=== PATIENT | male | born 1955 | race Caucasian/White ===

== ENCOUNTER 2016-06-15 17:57 | Inpatient (IN) | payer MEDICARE, OTHER ==
[~2016-06-15] VITALS: Ht 180.3 cm; Wt 101.1 kg
[2016-06-15] VITALS (9 sets, daily range): BP systolic 105–122; BP diastolic 67–90; PULSE 137–145; RESP 18–28; O2SAT 91–97
[~2016-06-15 17:57] MED LIST: ASPI81TA3 PO; METO-272 PO; PREN1TAB25 PO
[2016-06-15 18:31] LABS: BASOPHILS % (AUTO) 0.5 % (0-3); EOSINOPHILS % (AUTO) 4.1 % (0-5); MONOCYTES % (AUTO) 8.9 % (4-12); Mean Corpuscular Hemoglobin 31.8 pg (27.0-35.0); Mean Corpuscular Volume 93.9 fL (81-100); Platelet Count 213 bil/L (150-400)
--- NOTE | 2016-06-15 18:45 | ED.REPORT ---
HPI-General Illness Date of Service Jun 15, 2016 ED Provider: Kelly Perez MD The patient is a 61 year old male with history of alcohol abuse, schizoaffective disorder, bipolar, and PTSD, who presents to the emergency department with multiple concerns. the patient states he injected heroin yesterday in hopes it would kill him. He has attempted suicide in the past and has been hospitalized psychiatrically. He has been unable to stop drinking alcohol due to withdrawal symptoms. He also mentions that he has been short of breath and noticed palpitations over the last few months. He was diagnosed with atrial fibrillation several months ago. He was unable to get to the pharmacy and has not been taking the medication that was prescribed for this. He has experienced intermittent chest pain, the last episode was a few weeks ago. He denies history of heart failure. Nursing Notes Stated Complaint: SUICIDAL,HEART RACING,ALCOHOL Chief Complaint: Psychiatric Complaint Nursing Notes Reviewed: Yes Allergies: Coded Allergies: No Known Allergies (Verified , 06/15/16) Scheduled Aspirin Chew (Aspirin Chew) 81 Mg Chew 325 MG PO DAILY Metoprolol Succinate ER (Metoprolol Succinate ER) 50 Mg Tab.er.24h 100 MG PO BID Vit#96/Ferrous Fum/FA ( Tablet) 1 Each Tablet 1 TABLET PO DAILY General Time Seen by MD: 18:34 Chief Complaint Multip medical complaints Hx Obtained From: Patient Arrived By: Walk-in Sudden in Onset?: No Onset Occurred: More than a week ago... Symptom Duration: Since onset Severity: Current: No pain currently Severity: Maximum: No pain Recent Healthcare: No recent hospitalization Similar Sx Previous: Yes Past Medical History Past Medical History alcoholic meth abuse schizoaffective disorder bipolar PTSD Reports: Atrial fibrillation Past Surgical History Reports: Appendectomy, Tonsillectomy Smoking History Current Every Day Smoker Social History He reports injecting heroin yesterday (06/14/2016) Alcohol Use: >5 per day Drug Use: Meth Other Social History: Poor social support, Local resident Ambulatory Status Independent Review of Systems Full Review of Systems Respiratory: Reports: Shortness of breath Cardiovascular: Reports: Chest pain (intermittent), Palpitations Psychiatric: Reports: Change mental status, Stress, Suicidal ideation Complete sys rev & neg: except as marked. Physical Exam Vital Signs Vital Signs Date Time Temp Pulse Resp B/P Pulse Ox O2 Delivery O2 Flow Rate FiO2 06/15/16 21:03 137 105/77 06/15/16 20:48 137 113/67 06/15/16 19:13 144 21 106/82 91 Room Air 06/15/16 18:20 144 26 106/82 92 Room Air 06/15/16 18:05 36.3 145 28 113/83 94 Room Air Initial VS: Reviewed Head / Eyes: Atraumatic, Normocephalic, PERRL ENT: Mucous membranes moist, Conjunctiva normal, No scleral icterus Neck: Supple, Non-tender, Full range of motion Respiratory: Breath sounds normal, Clear to auscultation, No respiratory distress Abdomen / GI: Soft, Non-tender, No guarding, No rebound, No distention Lymphatic: No lymphadenopathy Extremities: Vascular intact, Neuro intact, No swelling, No tenderness Skin: Warm, Dry, No cyanosis Neurologic: Alert, Oriented, Nonfocal General/Constitutional: Awake, Alert, No acute distress Cardiovascular: No murmurs, No rubs, Peripheral circulation NL, Pulses = bilaterally, No gross BP differential Heart Rate / Rhythm: Positive: Irreg irregular rhythm, Tachycardia Psychiatric: Affect NL, Not homicidal, No hallucinations Abnormal Thinking / Perception: Positive: Suicidal, with plan Interpretation & Diagnostics Lab Results Interpretation Result Diagram: 06/15/16 1815 06/15/16 1815 Test 06/15/16 18:15 06/15/16 19:28 White Blood Count 7.8th/mm3 (3.8-10.1) Red Blood Count 4.43mil/mm3 (4.40-5.80) Hemoglobin 14.1g/dL (13.8-17.2) Hematocrit 41.6% (41.0-50.0) Mean Corpuscular Volume 93.9fL (81-100) Mean Corpuscular Hemoglobin 31.8pg (27.0-35.0) Mean Corpuscular Hemoglobin Concent 33.9% (32.0-37.0) Red Cell Distribution Width 13.4% (12.3-15.4) Platelet Count 213bil/L (150-400) Neutrophils (%) (Auto) 58.0% (40-74) Lymphocytes (%) (Auto) 28.4% (14-46) Monocytes (%) (Auto) 8.9% (4-12) Eosinophils (%) (Auto) 4.1% (0-5) Basophils (%) (Auto) 0.5% (0-3) Sodium Level 138mEq/L (134-144) Potassium Level 4.7mEq/L (3.5-5.2) Chloride Level 104mEq/L (97-108) Carbon Dioxide Level 19mmol/L (18-29) Blood Urea Nitrogen 28mg/dL (8-27) Creatinine 1.29mg/dL (0.76-1.27) Estimat Glomerular Filtration Rate 60mL/min (>59) Glucose Level 79mg/dL (60-99) Calcium Level 8.6mg/dL (8.5-10.1) Magnesium Level 1.8mg/dL (1.6-2.6) Total Bilirubin 0.4mg/dL (0.0-1.2) Aspartate Amino Transf (AST/SGOT) 28U/L (0-50) Alanine Aminotransferase (ALT/SGPT) 17U/L (0-44) Alkaline Phosphatase 77U/L (25-160) Troponin T < 0.010ug/L (0.0-0.011) Pro-B-Type Natriuretic Peptide 1710pg/mL (0-210) Total Protein 6.3g/dL (6.4-8.4) Albumin 3.6g/dL (3.4-5.0) Hold Encarnacion Top Tube Received (Received) Urine Color Yellow (YELLOW) Urine Appearance Clear (CLEAR,HAZY) Urine pH 5.5 (5.0-8.0) Urine Specific [place] 1.025 (1.003-1.035) Urine Protein 30mg/dL (NEG,TRACE) Urine Glucose (UA) Negativemg/dL (NEGATIVE) Urine Ketones Negativemg/dL (NEGATIVE) Urine Occult Blood Negative (NEGATIVE) Urine Nitrite Negative (NEGATIVE) Urine Bilirubin Negative (NEGATIVE) Urine Urobilinogen Normalmg/dL (NORMAL) Urine Leukocyte Esterase Negative (NEGATIVE) Urine RBC 0-2/hpf (0-2) Urine WBC 0-5/hpf (0-5) Urine Epithelial Cells Occasional/hpf (NONE-MOD) Urine Crystals None seen (NONE SEEN) Urine Bacteria Few/hpf (NONE-FEW) Urine Hyaline Casts Occasional/lpf (NONE) Urine Granular Casts None seen (NONE SEEN) Urine Waxy Casts None seen (NONE SEEN) Urine Red Blood Cell Casts None seen (NONE SEEN) Urine White Blood Cell Casts None seen (NONE SEEN) Urine Mucus Present (None Seen) Urine Trichomonas None seen (NONE SEEN) Urine Yeast None (NONE SEEN) Urinalysis Comment None Urine Culture Reflexed Not indicated ECG Interpretation ECG Interpretation: Atrial flutter with a rate of [address] ST depression in II and aVF Changed from prior with new atrial flutter Time: 18:15 Interpreted by: ED physician X-Ray Chest Interpretation Chest Xray Interpretation: IMPRESSION: Mild pulmonary vasculature cephalization suspicious for mild CHF. Dictated by: Afsaneh Badillo MD, PhD on 06/15/2016 at 19:27 Interpretation / Wet Read by: Interpret - Radiologist Re-Eval/Medical Decision Med Decision/Clinical Course 61-year-old male with past medical history of polysubstance abuse, psychiatric disorder, atrial fibrillation which is not currently treated here with suicidal ideation with attempt yesterday by injecting heroine, along with progressively worsening shortness of breath over the last several months. Differential diagnosis includes but is not limited to pneumonia versus pleural effusion versus new onset CHF versus suicidal ideation. Patient was found to be in A. fib with RVR with rate in the 140s. He was mildly hypotensive with a systolic blood pressure of 106 initially. I gave him a liter of fluids which increased his blood pressure, and then was able to give diltiazem which has been slowly decreasing his atrial fibrillation rate. He is not medically cleared at this time given his heart rate. He does have a mildly elevated proBNP. I do feel that this is more secondary to high output failure from A. fib with RVR, rather than congestive heart failure. He has been admitted by the hospitalist who will continue to monitor him, give him fluids, and once he is medically cleared , discussed with psychiatry. Patient has a sitter at bedside at this time. He does appear to be dry with an elevated creatinine from baseline. He is aware and amenable to plan. Source of Hx: Old records Time of Eval: 18:50 Re-Evaluation/Progress Note: Discussed plan for probable admission. Consultation : Referral / Consult Name: Melodie Osborne DO Consulted With: Hospitalist Call Returned at: 22:24 Stock Cutter: Will see patient, Agrees with eval, Agrees with plan, Accepts admit Counseled Regarding: Diagnosis, Lab results, Need for admission Discharge & Departure Primary Impression: Atrial fibrillation with RVR Disposition: ADMITTED TO HOSPITAL Discharge Condition All VS Reviewed: Yes Condition: Stable Referrals: [facility] (PCP) Janett Attestation Portions of this note were transcribed by Jana Espinal. I, Dr. Perez personally performed the history, physical exam and medical decision-making; I reviewed and confirmed the accuracy of the information in the transcribed note. Signed by : Janett Kahn, 06/15/2016 and 2230. copies to: [facility] Kelly Perez MD Jun 15, 2016 18:45 Jana Espinal Jun 15, 2016 18:56
[2016-06-15 18:54] LABS: TROPONIN T < 0.010 ug/L (0.0-0.011)
[2016-06-15] MEDS ORDERED: 0.9% Sodium Chloride 1,000 ML IV ONE (18:55)
[2016-06-15 18:58] LABS: Magnesium 1.8 mg/dL (1.6-2.6)
--- NOTE | 2016-06-15 19:29 | DRSVH ---
PROCEDURE: X-RAY CHEST ONE VIEW, PORTABLE ([id number]) INDICATIONS: shortness of breath TECHNIQUE: One view of the chest was acquired. COMPARISON: [facility], CR, XR CHEST 2VW, 03/15/2016, 12:22. FINDINGS: Surgical changes and devices: None. Lungs and pleura: No pleural effusions or pneumothorax. Lungs are clear. Mild cephalization of pulm onary vasculature noted suspicious for early CHF. Mediastinum: Mediastinal contours appear normal. Heart size is normal. Bones and chest wall: No suspicious bony lesions. Overlying soft tissues appear unremarkable. IMPRESSION: Mild pulmonary vasculature cephalization suspicious for mild CHF. Dictated by: Afsaneh Badillo MD, PhD on 06/15/2016 at 19:27 Approved by: Afsaneh Badillo MD, PhD on 06/15/2016 at 19:27
[2016-06-15] MEDS ORDERED: Diltiazem 5 mg/mL 5 mL Inj IVPUSH ONE (20:25)
[2016-06-15 20:32] LABS: APPEARANCE,URINE CLEAR (CLEAR,HAZY); COLOR,URINE YELLOW (YELLOW); OCCULT BLOOD,URINE NEGATIVE (NEGATIVE); PH,URINE 5.5 (5.0-8.0); UROBILINOGEN,URINE NORMAL (NORMAL)
[2016-06-15] MEDS ORDERED: Ondansetron 2 mg/mL 2 mL Inj IVPUSH PRN (22:30)
[2016-06-15] MEDS ORDERED: Polyethylene Glycol (PEG) 17 Gm Powder PO PRN (22:30)
[2016-06-15] MEDS ORDERED: Alum-Mag Hydrox-Simeth 30 mL Suspension PO PRN (22:30)
[2016-06-16] VITALS (8 sets, daily range): BP systolic 102–142; BP diastolic 54–112; PULSE 126–136; RESP 20–30; O2SAT 93–97
[2016-06-16] MEDS ORDERED: Diltiazem 5 mg/mL 5 mL Inj IVPUSH ONE
[2016-06-16] MEDS: Multivit-Miner-Folic Acid-Iron Tablet PO SCH ×2 (00:05→13:27)
[2016-06-16] MEDS ORDERED: Thiamine Inj 100 MG, Folic Acid Inj 1 MG, Magnesium Sulfate 50% Inj 2 GM, Multivitamins... IV ONE ×5 (00:05)
--- NOTE | 2016-06-16 00:34 | NUR ---
Admission Patient Navigator received pt at 2200 from the ER. Report received from MARK Miller. As per previous RN, pt came into the ER stating he wanted to commit suicide. Pt stated he used heroin and was hoping to overdose but instead came into the ER. Pt HR in the 130's range, the rest of the VS stable. Pt A&0x3, appropriate, and cooperative with care. As per property assessment monitor, pt is in ST 120-140's. Patient Navigator placed pt on telemetry, continuos pulse oximetry, and 4L of oxygen via NC.
--- NOTE | 2016-06-16 00:38 | NUR ---
CIWA/diltiazem administration Pt scored a 0 on the CIWA scale at 2200. At 0038 pt scored a 5. Furniture Finisher Apprentice gave ordered one dose of diltiazem 5mg IV push. Pt's BP prior to administration 129/90, HR 138. Post administration, BP 124/91 and HR 138. Pt anxious and restless in bed. Denies any visual or auditory hallucinations, states "I just want to settle down and sleep." A SOFTWARE RELEASE MANAGER sitter is posted outside pt's door to monitor.
--- NOTE | 2016-06-16 00:51 | NUR ---
Respiratory status Pt complains of SOB, SP02 reading ranging from 88-95% of 4L of 02 via NC. Commercial Litigation Attorney called RT to come and assess.
--- NOTE | 2016-06-16 02:42 | PCM.HPMED ---
Subjective Date of Service Jun 16, 2016 Primary Provider: Admitting Physician: Meoldie Osborne DO Primary Care Physician: [facility] Attending Physician: Melodie Osborne DO Admit Status: From the Emergency Department Chief Complaint: suicidal ideation History of Present Illness: 61yoM with past medical hx of atrial flutter, suicidal ideation, polysubstance abuse, bipolar, PTSD, and schizoaffective disorder presenting with CC of SI but was found to be in afib / flutter with rates in the 120-140s. Patient states that he came to the ED because of SI attempting to kill himself with heroin overdose. He states that he remains suicidal at this time and wants to hurt others "that are stealing from him". At the time of interview patient is somnolent 2/2 CIWA protocol and difficult to interview. He endorses dyspnea with anxiety and sensation of withdrawal with last drink 3- 4 hours prior to presentation. Patient denies any other symptoms at this time including changes in vision, hearing, chest pain, changes in bowel movements or urination, neurologic symptoms, fevers, chills, hallucinations. Recent admission 02/2016 with similar presentation. He was [facility] with intention to stop drinking however he continues to drink a 1/5 a day of vodka. During last admission atrial flutter was addressed. Due to poor medical compliance patient was not anticoagulated and discharged on metoprolol 50q6hr with intention to transition to 100mg BID. He currently is taking no medications. It is unclear if he has followed up with outpatient providers following discharge. Review of Systems: complete ros obtained. positive as per hpi otherwise negative Allergies Coded Allergies: No Known Allergies (Verified , 06/15/16) Home Medications Not currently taking any medication PMH Polysubstance abuse Schizoaffective disorder Hepatitis C Surgical History Tonsillectomy Appendectomy Family History Unable to obtain d/t patient somnolence As per EMR Patient's father at 84 of complications of kidney disease in old age Patient states his mother at 75 from a lung condition in old age Patient states he has 2 brothers who are healthy Patient states he has 1 sister who is healthy Patient states that none of his other family members have any psychiatric illness to his knowledge. Social History Hx Alcohol Use: Yes (daily) Hx Substance Use: Yes (Heroine yesterday) Hx Tobacco Use: Yes Smoking Status: Current Every Day Smoker (3-4 per day) Living Arrangement: Homeless Additional Information uses meth, heroin, ETOH Exam Vital Signs Vital Sign - Last Date Time Temp Pulse Resp B/P Pulse Ox O2 Delivery O2 Flow Rate FiO2 06/15/16 23:17 37.4 138 20 122/90 97 Nasal Cannula 2.00 Intake and Output 06/15/16 06/15/16 06/16/16 Cumulative From/Thru 15:00 23:00 07:00 06/15/16 18:05 - 06/15/16 23:15 Intake Total 999 ml 999 ml Balance 999 ml 999 ml Intake IV Total 999 ml 999 ml Exam General: Somnolent but arousable, Cooperative, No acute Distress Eyes: PERRLA, Scleral Anicteric Mouth: Mouth Normal, Mucous Membranes Moist/[place] Neck: Supple, no Thyromegaly, trachea central. Chest & Lungs: crackles Left lower, no wheeze, good insp effort Cardiovascular: Normal S1, Normal S2, No Murmurs/Rubs/Gallops, tachy/ reg Rhythm , (No JVD, no peripheral edema) Pulses: Radial (present and equal), Dorsalis Pedi (present and equal) Abdomen: Soft, Non-tender, Non-distended, Normoactive bowel tones. Musculoskeletal: Unremarkable. Normal range of motion, no swollen or erythematous joints Extremities: No edema, no cyanosis, no clubbing. Skin: no rashes or abnormalities noted Neurological: Grossly neurologically intact, Normal Speech, Sensation Intact Lymphatic: Lymph nodes Cervical and Axillary not palpable. Lab and Diagnostics Result Diagram: 06/15/16181406/15/161814 X-Rays, CTs and MRIs Patient Name: MARÍA JUAREZ MR#: [id number] [place] [facility] [place] Ordering Phys: RENARD YEPEZ MD Date of Service: 06/15/161807 PROCEDURE: X-RAY CHEST ONE VIEW, PORTABLE ([id number]) INDICATIONS: shortness of breath TECHNIQUE: One view of the chest was acquired. COMPARISON: [facility], CR, XR CHEST 2VW, 03/15/2016, 12:22. FINDINGS: Surgical changes and devices: None. Lungs and pleura: No pleural effusions or pneumothorax. Lungs are clear. Mild cephalization of pulmonary vasculature noted suspicious for early CHF. Mediastinum: Mediastinal contours appear normal. Heart size is normal. Bones and chest wall: No suspicious bony lesions. Overlying soft tissues appear unremarkable. IMPRESSION: Mild pulmonary vasculature cephalization suspicious for mild CHF. Assessment & Plan 61yoM with past medical hx of atrial flutter, suicidal ideation, polysubstance abuse, bipolar, PTSD, and schizoaffective disorder presenting with CC of SI but was found to be in afib / flutter with rates in the 120-140s. Atrial flutter / fibrillation, acute on chronic -patient with recent history of atrial flutter, non-compliant -likely exacerbated by ETOH withdrawal -will restart metoprolol 25q6HR with increase to 50q6HR as during previous admission -[id number] daily, will not anticoagulate d/t compliance issues as an outpatient ETOH withdrawal, acute -continues to drink 1/5 of vodka a day -history of prior withdrawal but no history of withdrawal seizure -[facility] protocol -social work consult Suicidal ideation, acute -attempted suicide day prior to admission -remains actively suicidal and wishes to harm others -sitter at all times -day team to consult psych Elevated BNP, acute -no past documentation of elevated BNP -no murmur heard on PE -potential CHF 2/2 elevated HR, no s/s -continue to monitor, treatment as above Pain Evaluation: Adequate Pain Control VTE Prophylaxis: Sub-Q Heparin (Unfractionated) Resuscitation Status: CPR: Attempt Resuscitation Melodie Osborne DO Jun 16, 2016 02:42
[2016-06-16 04:52] LABS: BASOPHILS % (AUTO) 0.3 % (0-3); EOSINOPHILS % (AUTO) 4.1 % (0-5); MONOCYTES % (AUTO) 8.7 % (4-12); Mean Corpuscular Hemoglobin 31.9 pg (27.0-35.0); Mean Corpuscular Volume 95.2 fL (81-100); NEUTROPHILS % (AUTO) 52.5 % (40-74); Platelet Count 206 bil/L (150-400)
[2016-06-16] MEDS ORDERED: MeTOProlol 1 mg/mL 5 mL Inj IVPUSH ONE ×2 (06:35)
[2016-06-16] MEDS: Heparin 5,000 Unit/mL Inj SUBQ SCH ×3 (07:51→23:32)
--- NOTE | 2016-06-16 08:09 | PCM.PNMED ---
Subjective Date of Service Jun 16, 2016 Subjective Patient is feeling very anxious and tremulous. He has a history of strong alcohol withdrawal. He drinks a fifth a day his last being yesterday. No hallucinations. He attempted overdose of heroin but no pills yesterday. He denies disorientation. He knows where he is. He denies any chest pain or difficulty breathing. He does have atrial fibrillation and does feel some palpitations. No nausea. Exam Vital Signs Vital Sign - Last Date Time Temp Pulse Resp B/P Pulse Ox O2 Delivery O2 Flow Rate FiO2 06/16/16 07:48 36.3 136 20 142/112 95 OxyMask 4.00 Intake and Output 06/15/16 06/15/16 06/16/16 Cumulative From/Thru 15:00 23:00 07:00 06/15/16 18:05 - 06/16/16 06:53 Intake Total 999 ml 1221 ml 2220 ml Output Total 400 ml 400 ml Balance 999 ml 821 ml 1820 ml Intake Oral 230 ml 230 ml IV Total 999 ml 991 ml 1990 ml Output Urine Total 400 ml 400 ml # Bowel Movements 0 0 Exam Patient is tremulous. He appears very anxious. Speech is fluent. Anicteric sclerae Neck supple. Lungs are clear with tachypnea. No rhonchi. Heart is tachycardic and irregular no murmur Abdomen soft nondistended. Extremities free of edema. Pedal and radial pulses Is free of petechiae or ecchymosis. No stigmata of liver disease. IVs and Medications Medications Reviewed: Medications were reviewed in detail Lab and Diagnostics Result Diagram: 06/16/165 06/16/16 0435 X-Rays, CTs and MRIs Patient Name: MARÍA JUAREZ MR#: [id number] Location: [facility] – [place] Ordering Phys: RENARD YEPEZ MD Date of Service: 06/15/16 180 PROCEDURE: X-RAY CHEST ONE VIEW, PORTABLE ([id number]) INDICATIONS: shortness of breath TECHNIQUE: One view of the chest was acquired. COMPARISON: [facility], CR, XR CHEST 2VW, 03/15/2016, 12:22. FINDINGS: Surgical changes and devices: None. Lungs and pleura: No pleural effusions or pneumothorax. Lungs are clear. Mild cephalization of pulmonary vasculature noted suspicious for early CHF. Mediastinum: Mediastinal contours appear normal. Heart size is normal. Bones and chest wall: No suspicious bony lesions. Overlying soft tissues appear unremarkable. IMPRESSION: Mild pulmonary vasculature cephalization suspicious for mild CHF. Assessment & Plan 61yoM with past medical hx of atrial flutter, suicidal ideation, polysubstance abuse, bipolar, PTSD, and schizoaffective disorder presenting with CC of SI but was found to be in afib / flutter with rates in the 120-140s. 1. Atrial flutter / fibrillation, acute on chronic. POA. We will use metoprolol by mouth for rate control with IV when necessary as needed 2. Severe ETOH withdrawal, acute . POA. -continues to drink 1/5 of vodka a day -history of prior withdrawal but no history of withdrawal seizure -[facility] protocol -social work consult 3. Suicidal ideation and attempt., acute. POA. -attempted suicide day prior to admission -remains actively suicidal and wishes to harm others -sitter at all times -The patient will require mental health evaluation after his acute alcohol withdrawal syndrome is resolved. This will likely be in 1-2 days. 4. Elevated BNP and evidence of mild pulmonary edema on chest x-ray., acute. POA. -no past documentation of elevated BNP -no murmur heard on PE -potential CHF 2/2 elevated HR, no s/s -continue to monitor, treatment as above With patient's history of tachycardia arrhythmia as well as alcohol dependence we will pursue a 2-D echo to rule out evidence of a acute or chronic cardiomyopathy. The patient is admitted inpatient status, anticipated length of stay is over 2 nights. Resuscitation status is full. Pain Evaluation: Adequate Pain Control VTE Prophylaxis: Sub-Q Heparin (Unfractionated) Resuscitation Status: CPR: Attempt Resuscitation Time spent 25 minutes Jesse Kay MD Jun 16, 2016 08:09
--- NOTE | 2016-06-16 10:15 | DRSVH ---
[facility] [address] [place] [address] Echocardiogram Report Name: MARÍA JUAREZ KStudy Date: 06/16/2016 Height: 71 in Hospital Exam Location: [facility] Weight: 218 lb Gender: Male BSA: 2.2 m2 : 1955 Age: 61 yrs BP: 142/112 mmHg Reason For Study: DYSPNEA Ordering Physician: HOSPITALIST [facility] Performed By: Brandan Maurice Referring Physician: [facility] Interpretation Summary The left ventricle is normal in size. Left ventricular systolic function is moderate to severely reduced. The ejection fraction is estimated to be 25-30%. Right ventricular systolic function is moderately reduced. The mitral valve leaflets appear mildly thickened, but open well. There is severe mitral regurgitation. There is severe tricuspid regurgitation. The right ventricular systolic pressure is estimated at 45 mmHg assuming a right atrial pressure of 15 mm Hg. There is marked deterioration in LVEF and increase in MR and TR, consider urgent cardiology evaluation Procedure: A two-dimensional transthoracic echocardiogram with color flow and Doppler was performed. The study quality was technically good. Comparison is made with the echocardiogram of 03/05/16. The patient was tachycardic with a heart rate of 130-135 beats per minute. Left Ventricle: The left ventricle is normal in size. Left ventricular wall thickness is mildly increased. Left ventricular systolic function is moderate to severely reduced. The ejection fraction is estimated to be 25-30%. Right Ventricle: Borderline right ventricular enlargement. Right ventricular systolic function is moderately reduced. Atria: There is severe biatrial enlargement. The interatrial septum is intact with no evidence for an atrial septal defect. Mitral Valve: The mitral valve leaflets appear mildly thickened, but open well. There is severe mitral regurgitation. Aortic Valve: The aortic valve is trileaflet. The aortic valve opens well. No aortic regurgitation is present. Tricuspid Valve: The tricuspid valve leaflets are thin and pliable. There is severe tricuspid regurgitation. The right ventricular systolic pressure is estimated at 45 mmHg assuming a right atrial pressure of 15 mm Hg. Pulmonic Valve: The pulmonic valve is normal in structure and function. There is trace pulmonic regurgitation. Great Vessels: The aortic root is normal size. The ascending aorta is moderately enlarged. The pulmonary artery is normal size. The IVC is dilated (diameter is greater than 2.1 cm) and it collapses less than 50% with a sniff. This suggests a high right atrial pressure of 15 mm Hg. Pericardium/ Pleura There is no pericardial effusion. There is no pleural effusion. MMode/2D Measurements & Calculations LVIDd: 5.2 cm LA dimension: 5.0 cm RA long axis: 6.5 cm Ao root diam LVIDs: 4.4 cm FS: 14.1 % LA A2 area: 35.1 cm RA area: 31.2 cm Aortic Jxn EPSS: 1.1 cm LA A4 area: 27.2 cm RA vol: 127.8 ml IVSd: 1.1 cm LA length (vol): 7.2 cm RA : 58.4 ml/m2 asc Aorta LVPWd: 1.2 cm LA vol: 113.0 ml Diam: 4.3 cm LA vol index IVC diam: 2.7 cm EDV(MOD-sp2) LV jerez. diameter/BSA LV sys. diameter/BSA RVD1 (basal) : 183.7 ml (cm/m^2): 2.4 (cm/m^2): 2.0 : 4.2 cm RVD2 (mid) : 3.3 cm Doppler Measurements & Calculations Ao V2 max MV E max unruly MV E/A: 1286 TR max unruly : 94.4 cm/sec : 70.9 cm/sec Med Peak E' Unruly : 272.3 cm/sec Ao max PG MV A max unruly TR max PG : 3.6 mmHg : 0.06 cm/sec E/E' med: 8.2 : 29.7 mmHg Ao mean PG PA V2 max : 2.3 mmHg : 33.3 cm/sec PA mean PG : 0.25 mmHg PA Accel Time : 0.06 sec MV dec time Ao V2 mean PA V2 mean : 0.09 sec : 75.2 cm/sec : 23.9 cm/sec Ao V2 VTI: 12.9 cm PA pr(Accel) : 54.0 mmHg Electronically signed by: Jr Silverio on Reading Physician:06/16/2016 10:14 AM
--- NOTE | 2016-06-16 13:42 | NUR ---
Social Work: Screen D: Per EMR review, pt is a 61 year old male admitted for AFIB with RVR. Pt is [facility] insurance. PCP Is through the [facility]. NOK is Lorin Hanks, Dtr, . Pt discussed in am rounds. Pt presented to the ED in ETOH withdrawal endorsing suicidal ideation and stating he had attempted to commit suicide via overdose the day prior. Pt was found to be in AFIB and admitted to the medical floor. Pt is on CIWA protocol with CIWA score at 10 this morning. Pt is not appropriate for assessment at this time. A: Pt who is I at baseline P: BLUE LEATHER SORTER to complete MH assessment with pt once medically stable; BLUE LEATHER SORTER to continue to follow. TAHMINA Hinson
--- NOTE | 2016-06-16 14:11 | NUR ---
CIJAVON CIJAVON 10-19 today, diazepam 10mg IV given as needed, effective. SpO2 mid 90s on 4L NC, oxymask intermittently when sleeping. Pt states he is still feeling suicidal, sitter at bedside.
--- NOTE | 2016-06-16 23:20 | NUR ---
Agitation/ Tele/ resp Valium given very frequently for agitation- pt goes from sleeping soundly to awake, ripping off tele and o2. sp02 quickly desats to low 80s. Tele has been consistently Afib 120s. Dr. Frank gonzalez, states she will come and assess pt.
[2016-06-17] VITALS (9 sets, daily range): BP systolic 80–124; BP diastolic 43–103; PULSE 83–129; RESP 14–25; O2SAT 94–99
--- NOTE | 2016-06-17 04:31 | NUR ---
CIWA- Valium becoming more effective as night progresses- pt requiring it less frequently. CIWA score anywhere from 16-26.Pt still remains intermittently combative and non compliant with care.
--- NOTE | 2016-06-17 05:58 | NUR ---
Respiratory: PT breathing becoming more shallow, pt desating into the 60s. o2 increased to 13 L oxymask. phone paged, awaiting return call. ore charger to room and inserted a nasal airway. sp02 currently high 90s on oxymask @13 L. sitter at bedside. Addendum: 06/17/16 at 0627 by XAVIER CUBA RN MD at bedside to assess pt. Order to place restrains on pt. Transfer to CCU room 2019, Precedex gtt per protocol
[2016-06-17] MEDS: Dexmedetomidine 400 mCg/100 mL NS Premix IV SCH ×2 (06:31→08:52)
[2016-06-17] MEDS ORDERED: 0.9% Sodium Chloride 1,000 ML ONE (07:24)
[2016-06-17] MEDS: 0.9% Sodium Chloride 1,000 ML IV SCH ×2 (07:35→18:06)
[2016-06-17] MEDS: Heparin 5,000 Unit/mL Inj SUBQ SCH ×3 (08:12→23:46)
--- NOTE | 2016-06-17 08:20 | PCM.PNMED ---
Subjective Date of Service Jun 17, 2016 Subjective The patient is much more confused and agitated. He is requiring restraints. His withdrawal scores are in the mid to high 20s. He has been started on Precedex overnight. He remains tachycardic and tachypneic. He is incoherent and really cannot provide any intelligible review of systems are subjective. Exam Vital Signs Vital Sign - Last Date Time Temp Pulse Resp B/P Pulse Ox O2 Delivery O2 Flow Rate FiO2 06/17/16 06:47 36.3 129 24 124/103 97 OxyMask 13.00 Intake and Output 06/16/16 06/16/16 06/17/16 Cumulative From/Thru 14:59 22:59 06:59 06/15/16 18:05 - 06/17/16 06:43 Intake Total 240 ml 2460 ml Output Total 250 ml 650 ml Balance -10 ml 1810 ml Intake Oral 240 ml 470 ml IV Total 1990 ml Output Urine Total 250 ml 650 ml # Bowel Movements 0 0 Exam Patient is awake but agitated. Anicteric sclera, symmetric pupils Neck is supple. Lungs are clear with increased effort and rate. Heart is tachycardic without murmur Abdomen is soft. Extremities are free of edema and good pedal pulses. Patient is in arm restraints.. She cannot follow commands. IVs and Medications Medications Reviewed: Medications were reviewed in detail Lab and Diagnostics Result Diagram: 06/16/1643406/16/16434 X-Rays, CTs and MRIs Patient Name: MARÍA JUAREZ MR#: [id number] [place] [facility] [place] Phys: RENARD YEPEZ MD Date of Service: 06/15/161807 PROCEDURE: X-RAY CHEST ONE VIEW, PORTABLE ([id number]) INDICATIONS: shortness of breath TECHNIQUE: One view of the chest was acquired. COMPARISON: [facility], CR, XR CHEST 2VW, 03/15/2016, 12:22. FINDINGS: Surgical changes and devices: None. Lungs and pleura: No pleural effusions or pneumothorax. Lungs are clear. Mild cephalization of pulmonary vasculature noted suspicious for early CHF. Mediastinum: Mediastinal contours appear normal. Heart size is normal. Bones and chest wall: No suspicious bony lesions. Overlying soft tissues appear unremarkable. IMPRESSION: Mild pulmonary vasculature cephalization suspicious for mild CHF. Assessment & Plan 61yoM with past medical hx of atrial flutter, suicidal ideation, polysubstance abuse, bipolar, PTSD, and schizoaffective disorder presenting with CC of SI but was found to be in afib / flutter with rates in the 120-140s. 1. Severe ETOH withdrawal, acute . POA. The patient has gone into a more severe withdrawal over the last 12 hours. He was started on a Precedex drip and continues to be on the alcohol withdrawal protocol. The patient will have Precedex titrate up this morning to see if this improves his symptomatic relief. He was other measures including thiamine and fluid resuscitation. 2. Atrial flutter / fibrillation, acute on chronic. POA. We will use metoprolol by mouth for rate control with IV when necessary as needed at this point we will hold by mouth meds and will schedule metoprolol at every 8 hours. I will again his rate control for his chronic A. fib with current tachycardia. 3. Suicidal ideation and attempt., acute. POA. -attempted suicide day prior to admission -remains actively suicidal and wishes to harm others -sitter at all times -The patient will require mental health evaluation after his acute alcohol withdrawal syndrome is resolved. Evaluation deferred pending his resolution of all, withdrawal and acute encephalopathy. 4. Acute metabolic encephalopathy, this did follow admission. This appears to primarily related to his alcohol withdrawal syndrome. Continue to treat the core problem. 5. Chronic systolic heart failure, POA. This was detected secondary to Elevated BNP and evidence of mild pulmonary edema on chest x-ray., acute. POA. This likely is multifactorial but relates in some degree to his alcohol dependence as well as his tachycardia arrhythmia. At this point he appears to be clinically compensated and euvolemic. We will follow this closely. The patient is admitted inpatient status, anticipated length of stay is over 2 nights. Resuscitation status is full. VTE Prophylaxis: Sub-Q Heparin (Unfractionated) VTE Mechanical Devices: Intermittant Pneumatic CD Resuscitation Status: CPR: Attempt Resuscitation Time spent 30 minutes Jesse Kay MD Jun 17, 2016 08:20 Jesse Kay MD Jun 17, 2016 08:20
[2016-06-17] MEDS: Multivit-Miner-Folic Acid-Iron Tablet PO SCH (08:30)
[2016-06-17] MEDS: MeTOProlol 1 mg/mL 5 mL Inj IVPUSH SCH ×3 (08:30→23:38)
[2016-06-17 09:52] LABS: Mean Corpuscular Hemoglobin 31.7 pg (27.0-35.0); Mean Corpuscular Volume 94.4 fL (81-100)
--- NOTE | 2016-06-17 10:37 | ABG ---
DateTimeAnalyzed 10:31:00 -_ pH ____7.415 - 7.350 7.450 pCO2 ___25.5__ -mmHg 35.0 45.0 pO2 153 -mmHg 69.0 116 HCO3- ___16.1__ -mmol/L 22.0 26.0 ABE ___-6.4__ -mmol/L -2.0 2.0 tHb ___14.7__ -g/dL O2Hb ___97.5__ -% COHb ____0.7__ -% MetHb ____0.7__ -% sO2 ___98.9__ -% 25.0 FIO2 ___65.0__ -% Drawn By jmw - Date/Time Notified____ 10:36:00 -_ Liter_Flow ___13.0__ -L/min Oxygen Device 1 __OXYMASK - Notified By jmw - Notified Whom __RN ONYA - B 741 -mmHg tO2 ___20.4__ -Vol% Jesse test _Positive -
--- NOTE | 2016-06-17 11:00 | NUR ---
NUTRITION ASSESSMENT: ASSESS:61 YO male admitted with SI but was found to be in afib / flutter with rates in the 120-140s. The patient is actively suicidal / homicidal and requiring a sitter at all times. He was transferred to CCU requiring Precedex. He was able to tolerate 100% meals yesterday; however, today he is more somnolent, with his breathing more shallow, desating into the 60s. o2 increased to 13 L oxymask. CIWA score currently in the 20's. PMHx:Polysubstance abuse, schizoaffective disorder, hepatitis C, suicide ideation. DIET:General. PO intake 100% all trays yesterday, NPO today. LABS: Reviewed. CO2 15, BUN 33, Glu 162, Alb 3.1. MEDICATIONS: Reviewed. Precedex, valium, lopressor, vitamin B1, MVI. NUTRITION FOCUSED PHYSICAL ASSESSMENT: GI symptoms / stool: No BM reported.Saad: 15 Skin Integrity: No issues reported. ANTHROPOMETRICS: Current Wt: 100.0 kgBMI: 30.0 kg/m2.Admit weight: 98.8 kg IBW: 78.18 kg (126% IBW) ESTIMATED NEEDS (CCU, CLASS I OBESITY): Calories: 1750 - 1955 kcal (22 - 25 kcal / kg IBW) Protein: 141 - 156 g protein (1.8 - 2.0 g / kg IBW) Fluids: Approx. 2964 ml (30 ml / kg BW) NUTRITION DIAGNOSIS: 1)Inadequate oral intake related to somnolence, respiratory distress, as evidenced by current NPO status. INTERVENTION: 1) In the event patient requires intubation, recommend initiate enteral feeding within 24 hours to mitigate declining nutritional status. MONITOR/EVALUATE: Respiratory status, PO tolerance / intake, labs, GI/nutrition status. Follow up per moderate nutrition risk guidelines.
[2016-06-17] MEDS ORDERED: Norepinephrine 8,000 mCg/250 mL NS Premix IV ONE (11:37)
[2016-06-17] MEDS: Norepineph 8,000 mCg/250 mL NS 8,000 MCG in IV Premix 1 EACH IV SCH (11:40)
[2016-06-17] MEDS ORDERED: Sodium Chloride LOK Flush 10 mL Syringe IVFLUSH PRN ×2 (11:40)
--- NOTE | 2016-06-17 11:49 | DRSVH ---
PROCEDURE: X-RAY CHEST ONE VIEW, PORTABLE ([id number]) INDICATIONS: DYSPNEA TECHNIQUE: One view of the chest was acquired. COMPARISON: [facility], CR, XR CHEST 1VW (PORTABLE), 06/15/2016, 18:23. FINDINGS: Surgical changes and devices: None. Lungs and pleura: There is increased appearance of by basilar and retrocardiac opacities. Diffuse amado earance of increased pulmonary vascularity is present. There is interval blunting of the right costop hrenic angle. Mediastinum: Mediastinal contours appear normal. Heart size is normal. Bones and chest wall: No suspicious bony lesions. Overlying soft tissues appear unremarkable. IMPRESSION: Increased pulmonary vascularity, most suggestive of edema. There is likely presence of a right pleural effusion secondary to blunting costophrenic angles. Interval appearance of by basilar and retrocardiac opacities could be pharmaceutical specialty representative of focal edema v ersus developing airspace disease such as pneumonia and/or atelectasis. Dictated by: Nicci Hoover M.D. on 06/17/2016 at 11:37 Approved by: Nicci Hoover M.D. on 06/17/2016 at 11:37
[2016-06-17] MEDS ORDERED: Propofol 10,000 mCg/mL 20 mL Inj ONE (13:32)
--- NOTE | 2016-06-17 15:26 | DRSVH ---
PROCEDURE: X-RAY PICC LINE PLACEMENT BY NURSE ([id number]) INDICATIONS: ACCESS COMPARISON: None. FINDINGS: PICC was placed by the intravenous therapy team from the left side. Fluoroscopic spot angelito m demonstrates tip of PICC overlying the mid SVC. IMPRESSION: Tip of PICC overlies the mid SVC. Dictated by: Nicci Hoover M.D. on 06/17/2016 at 15:20 Approved by: Nicci Hoovre M.D. on 06/17/2016 at 15:20
[2016-06-17] MEDS ORDERED: Propofol 10,000 mCg/mL 100 mL Inj ONE (18:21)
[2016-06-17] MEDS ORDERED: 0.9% Sodium Chloride 250 ML IV ONE (18:25)
--- NOTE | 2016-06-17 18:36 | DRSVH ---
PROCEDURE: X-RAY CHEST ONE VIEW, PORTABLE ([id number]) INDICATIONS: Post intubation to verify ETT placement TECHNIQUE: One view of the chest was acquired. COMPARISON: [facility], CR, XR CHEST 1VW (PORTABLE), 06/17/2016, 10:55. FINDINGS: Surgical changes and devices: Endotracheal tube is present throughout approximate 3.3 cm superior to the brittnee. Left PICC line is present with distal tip overlying the proximal SVC. Lungs and pleura: No pleural effusions or pneumothorax. Bibasilar and retrocardiac opacities are unc hanged. Mediastinum: Mediastinal contours appear normal. Heart size is normal. Bones and chest wall: No suspicious bony lesions. Overlying soft tissues appear unremarkable. IMPRESSION: Endotracheal tube placement as above. Otherwise, stable exam Dictated by: Nicci Hoover M.D. on 06/17/2016 at 18:34 Approved by: Nicci Hoover M.D. on 06/17/2016 at 18:34
[2016-06-17] MEDS: Propofol Inj 1,000,000 MCG in IV Premix 1 EACH IV SCH (18:43)
--- NOTE | 2016-06-17 19:07 | PROCED ---
[address] [address] PROCEDURE NOTE PATIENT: MARÍA JUAREZ : 1955 MR#: [id number] ADMIT: 06/15/2016 JOB ID: [id number] DATE OF SERVICE: 06/17/2016 POSTOPERATIVE DIAGNOSIS(ES): PREOPERATIVE DIAGNOSIS(ES): SURGEON: Evaristo Kelley MD INDICATION FOR PROCEDURE: I was asked by the hospitalist to assist with intubation on this patient, who is experiencing alcohol withdrawal and some congestive heart failure with resultant pulmonary edema. DESCRIPTION OF PROCEDURE: The patient was being sedated with Valium and dexmedetomidine prior to my arrival. The patient was preoxygenated with 100% oxygen. I took a quick look with a number three GlideScope and was able to visualize the cords well, but the patient became somewhat uncooperative. Therefore, the GlideScope was removed and the patient was further sedated with a total of 100 mg propofol IV. I looked a 2nd time with the GlideScope and had good visualization and an 8.0 endotracheal tube was placed without difficulties. There was positive end-tidal CO2 and bilateral breath sounds. The ET tube was secured and a chest x-ray is pending. The patient tolerated this procedure well.
[2016-06-17] MEDS ORDERED: 0.9% Sodium Chloride 500 ML ONE (19:20)
--- NOTE | 2016-06-17 19:48 | NUR ---
Note Alternating hypo and hyperactivity with agitation and combative behavior at times. CIWA up to 34 when agitated. Patient was started by overnight babysitter RN this morning on Precedex drip. Consulted with MD precede drip was gradually titrated up to 1mcg/kg/h with Valium pushes 5-10 mg IV when CIWA elevated varied results. Respiratory rate was 14-25 when patient relaxed and up to 45 breaths per min during periods of agitation. Heart rate also varied between 80s and 130s and remained a-flutter. ABG this morning: pH 7.415, pco2 25.2, po2 153 on 13L oxy mask and hco3 at 16.1- 2 was decreased to 8L per oxy mask with oxygen saturation remaining 93-98%. It was difficult to obtain continues and accurate oximetry reading form forehead and from fingers at the time. MD was made aware about the findings. Patient was given one liter if NS over 1h but continued to be hypotensive. Patient was started on Levophed drip which was titrated up to 0.1mcg/kg/min to maintain MAP>60-65. PICC line was placed by IV therapy. Patient was diaphoretic especially during episodes of agitation. He voided 200ml of dark kurtis urine earlier this morning and verma again 20ml. Patient was indicating that he needed to urinate at times. Bladder scanner reveled 20-25ml of fluid in the bladder- MD made aware- Valdes catheter was placed this evening with no urine output so far- will bladder scan in 1-2h if no urine output. Potassium and creatinine increased from earlier draw and at 6.2 and1.56- MD ordered Kayexalate PO per OG tube. Patient remained NPO- he was not able to follow commands and remained a high risk for aspiration. Patient was intubated today after 1800 for airway protection and difficulty controlling his behavior. OG tube was placed post intubation- continue assessments.
--- NOTE | 2016-06-17 19:57 | ABG ---
DateTimeAnalyzed 19:53:00 -_ pH ____7.356 - 7.350 7.450 pCO2 ___25.4__ -mmHg 35.0 45.0 pO2 125 -mmHg 69.0 116 HCO3- ___13.9__ -mmol/L 22.0 26.0 ABE ___-9.6__ -mmol/L -2.0 2.0 tHb ___15.7__ -g/dL O2Hb ___96.5__ -% COHb ____0.7__ -% MetHb ____0.9__ -% sO2 ___98.1__ -% 25.0 FIO2 ___21.0__ -% PEEP ____5.0__ -cmH2O Set_RR ___20.0__ -b/min Vt __520.0__ -L Drawn By MD - Date/Time Notified____ 19:57:00 -_ Spontaneous_RR ___20.0__ -b/min Oxygen Device 1 VENTILATOR - Notified By MD - Notified Whom RN K.HERLICKSON - B 746 -mmHg tO2 ___21.5__ -Vol% Jesse test N/A -
[2016-06-17] MEDS: Chlorhexidine 0.12% 15 mL Oral Solution MT SCH ×2 (21:20→23:46)
[2016-06-17 21:40] LABS: TROPONIN T 0.01 ug/L (0.0-0.011)
[2016-06-17] MEDS ORDERED: Insulin Human REGular-Omnicell 100 Unit/mL IV ONE (22:10)
[2016-06-18] VITALS (13 sets, daily range): BP systolic 77–125; BP diastolic 56–93; PULSE 88–141; RESP 20; O2SAT 90–99
[2016-06-18] MEDS: Norepineph 8,000 mCg/250 mL NS 8,000 MCG in IV Premix 1 EACH IV SCH
[2016-06-18] MEDS: Dexmedetomidine 400 mCg/100 mL NS Premix IV SCH ×2 (02:45→18:57)
--- NOTE | 2016-06-18 03:35 | NUR ---
vented/pressor/sedation .30 fio2 per vent, sats upper 90's, hob up, oral care done, verma sputum orally, no sputum per ett with suctioning -rt got sputum spec with lavage, resp rate= 20/20 on vent, ls- slightly course, sputum spec sent to lab per rt, abg's done, md aware of abg results and ekg results, ogt placed upon coming on shift, placement =wnl, greenish output, david exelate given, k+ still elevated, d50 and iv insulin given, bmp run, k+ wnl, aware of pt assessment and in to see pt: cool throughout and mottled to lower extremities, no initial uop--very little hourly since beginning of shift, k+ level, creat level, pt cultured t/o no antibiotics ordered at this time, pressors, iv fluids, cvp=16-20, norepi gtt to keep map >65, norepi gtt between 0.1-0.2mcg/kg/min, pt sedated on propofol only, discussed pt's potential for withdrawal and current sedation meds, seizure pads on bed, no seizure activity noted, precedex weaned off per day shift md order, night md aware pt diaphoretic post precedex off, left picc intact, scd's on, turn q2hrs, see ccu flow sheet, cont monitoring, plan:vent support, ps trial as able, bp support,
[2016-06-18] MEDS: 0.9% Sodium Chloride 1,000 ML IV SCH ×3 (04:53→22:52)
[2016-06-18] MEDS: Chlorhexidine 0.12% 15 mL Oral Solution MT SCH ×6 (04:53→23:56)
[2016-06-18] MEDS: Propofol Inj 1,000,000 MCG in IV Premix 1 EACH IV SCH ×6 (04:54→22:52)
--- NOTE | 2016-06-18 04:54 | ABG ---
DateTimeAnalyzed 04:50:00 -_ pH ____7.355 - 7.350 7.450 pCO2 ___26.9__ -mmHg 35.0 45.0 pO2 106 -mmHg 69.0 116 HCO3- ___14.7__ -mmol/L 22.0 26.0 ABE ___-8.9__ -mmol/L -2.0 2.0 tHb ___15.7__ -g/dL O2Hb ___95.5__ -% COHb ____0.8__ -% MetHb ____0.9__ -% sO2 ___97.2__ -% 25.0 FIO2 ___21.0__ -% PEEP ____5.0__ -cmH2O Set_RR ___20.0__ -b/min Vt __520.0__ -L Drawn By MD - Date/Time Notified____ 04:53:00 -_ Spontaneous_RR ___20.0__ -b/min Oxygen Device 1 VENTILATOR - Notified By MD - Notified Whom RN K.HERLICKSON - B 744 -mmHg tO2 ___21.2__ -Vol% Jesse test N/A -
[2016-06-18 05:16] LABS: Mean Corpuscular Volume 94.4 fL (81-100)
[2016-06-18] MEDS ORDERED: Furosemide 10 mg/mL 2 mL Inj IVPUSH ONE (07:25)
--- NOTE | 2016-06-18 08:17 | PCM.PNMED ---
Subjective Date of Service Jun 18, 2016 Subjective Patient is intubated and sedated. ROS subjective not obtainable. Exam Vital Signs Vital Sign - Last Date Time Temp Pulse Resp B/P Pulse Ox O2 Delivery O2 Flow Rate FiO2 06/18/16 04:38 117 109/84 99 30 06/18/16 04:00 Ventilator 06/18/16 04:00 36.7 20 06/17/16 15:21 8.00 Intake and Output 06/17/16 06/17/16 06/18/16 Cumulative From/Thru 15:00 23:00 07:00 06/15/16 18:05 - 06/18/16 06:22 Intake Total 4606 ml 7066 ml Output Total 276 ml 926 ml Balance 4330 ml 6140 ml Intake Oral 0 ml 470 ml IV Total 4606 ml 6596 ml Output Urine Total 176 ml 826 ml Gastric Drainage Total 100 ml 100 ml # Bowel Movements 0 0 Exam He is intubated, sedated. He appears comfortable. 10 G case. Endotracheal tube and NG tube in place. Lungs are clear, no focal findings, no wheezing. Heart is regular without murmur Abdomen is soft nondistended. Extremities are free of edema with compression devices on. No skin rash or lesions. IVs and Medications Medications Reviewed: Medications were reviewed in detail Lab and Diagnostics Result Diagram: 06/18/16 0505 06/18/16 0505 X-Rays, CTs and MRIs Patient Name: MARÍA JUAREZ MR#: [id number] Location: SED Ordering Phys: MARLENI, ED Date of Service: 06/15/16 1808 PROCEDURE: X-RAY CHEST ONE VIEW, PORTABLE ([id number]) INDICATIONS: shortness of breath TECHNIQUE: One view of the chest was acquired. COMPARISON: [facility], CR, XR CHEST 2VW, 03/15/2016, 12:22. FINDINGS: Surgical changes and devices: None. Lungs and pleura: No pleural effusions or pneumothorax. Lungs are clear. Mild cephalization of pulmonary vasculature noted suspicious for early CHF. Mediastinum: Mediastinal contours appear normal. Heart size is normal. Bones and chest wall: No suspicious bony lesions. Overlying soft tissues appear unremarkable. IMPRESSION: Mild pulmonary vasculature cephalization suspicious for mild CHF. Assessment & Plan 61yoM with past medical hx of atrial flutter, suicidal ideation, polysubstance abuse, bipolar, PTSD, and schizoaffective disorder presenting with CC of SI but was found to be in afib / flutter with rates in the 120-140s. 1. Intubated for airway protection and progressive pulmonary edema. The patient will be sedated with propofol today for his DVTs as well as comfort while intubated. We will check a chest x-ray this morning as he had evidence of progressive pulmonary edema secondary to acute systolic heart failure. 2. Severe ETOH withdrawal, acute . POA. He did poorly with alcohol withdrawal protocol and low-dose Precedex yesterday. Because of persistent hypotension and progressive pulmonary edema the patient was intubated. At that point Precedex was discontinued and was placed on propofol for sedation as well as treatment of his DTs. He has ongoing Valium per his alcohol fall protocol. He appears comfortable today. Continue the current regimen for another 24 hours. 3. Atrial flutter / fibrillation, acute on chronic. POA. The patient is currently rate controlled. We will use IV metoprolol scheduled. 4. Acute on chronic systolic heart failure. The patient has had progression of infiltrates on x-ray secondary to requiring fluid resuscitation for persistent hypotension yesterday. He is saturating well on his current vent settings. He has had a low urine output, will give 1 dose of Lasix 10 IV to encourage urine flow this morning. We will continue to watch pressures carefully. 5. Hypotension. This is multifactorial. The patient are low-dose norepinephrine support for the last 24 hours. Anticipate this will continue. Trying to mitigate the hypotensive effects of propofol as well as the Valium. 6. Suicidal ideation and attempt., acute. POA. -attempted suicide day prior to admission -remains actively suicidal and wishes to harm others -sitter at all times -The patient will require mental health evaluation after his acute alcohol withdrawal syndrome is resolved. Evaluation deferred pending his resolution of all, withdrawal and acute encephalopathy. 7. Acute metabolic encephalopathy, this did follow admission. This appears to primarily related to his alcohol withdrawal syndrome. Continue to treat the core problem. 8. Acid base/anabolic disorders. The patient has a complex metabolic acidosis , respiratory alkalosis with an anion gap metabolic acidosis and a non-anion gap metabolic acidosis. The patient does have residual lactic acidosis as well as evidence of acute and possibly chronic renal failure as contributors. The patient is admitted inpatient status, anticipated length of stay is over 2 nights. Resuscitation status is full. VTE Prophylaxis: Sub-Q Heparin (Unfractionated) VTE Mechanical Devices: Intermittant Pneumatic CD Resuscitation Status: CPR: Attempt Resuscitation Time spent 30 minute Jesse Kay MD Jun 18, 2016 08:17
[2016-06-18] MEDS: Multivit-Miner-Folic Acid-Iron Tablet PO SCH (08:30)
[2016-06-18] MEDS: MeTOProlol 1 mg/mL 5 mL Inj IVPUSH SCH ×4 (08:30→23:57)
[2016-06-18] MEDS: Heparin 5,000 Unit/mL Inj SUBQ SCH ×3 (08:31→23:56)
--- NOTE | 2016-06-18 09:47 | DRSVH ---
PROCEDURE: X-RAY CHEST ONE VIEW, PORTABLE ([id number]) INDICATIONS: dyspnea TECHNIQUE: One view of the chest was acquired. COMPARISON: [facility], CR, XR CHEST 1VW (PORTABLE), 06/17/2016, 18:12. FINDINGS: Surgical changes and devices: The endotracheal tube is 7.7 cm above the brittnee. There is a left PICC present, the tip of which is likely at the confluence of the brachiocephalic veins. Lungs and pleura: No pneumothorax. There is likely right basilar consolidation and small bilateral pl eural effusions. Mediastinum: Mediastinal contours appear normal. Heart size is normal. Bones and chest wall: No suspicious bony lesions. Overlying soft tissues appear unremarkable. IMPRESSION: 1. Right basilar consolidation. Differential considerations include aspiration, infection, and atelec tasis. 2. Small pleural effusions. Dictated by: Yarelis Roberts M.D. on 06/18/2016 at 9:43 Approved by: Yarelis Roberts M.D. on 06/18/2016 at 9:44
[2016-06-18] MEDS: Midazolam Inj 100 MG in IV Premix 1 EACH IV SCH (12:14)
[2016-06-18] MEDS: Famotidine Inj 20 MG in IV Premix 1 EACH IV SCH (12:14)
[2016-06-18] MEDS ORDERED: MeTOProlol 1 mg/mL 5 mL Inj IVPUSH ONE (16:05)
[2016-06-18] MEDS ORDERED: Digoxin 0.25 mg/mL 2 mL Inj IV ONE ×2 (16:05→21:00)
--- NOTE | 2016-06-18 17:34 | NUR ---
Versed added for adequate sedation, remains on vent support. HR elevated, trending up throughout the day, now at 142, remains in flutter. Digoxin and additional dose of IV metoprolol given with no effect, MD aware. To receive additional doses this evening per MD. Appears comfortable. Family here throughout the day, updated by MD. UOP improved, 1400ml/12 hours. No stool. OGT drained 200ml bile. Blood sugars within goal, no insulin. Remains in atrial flutter. Pressors weaned off today. Fi02 increased to 40% to maintain sats >92%. Skin appears intact, intermittently diaphoretic.
--- NOTE | 2016-06-18 18:20 | CONS ---
[address] [address] CONSULTATION REPORT PATIENT: MARÍA JUAREZ : 1955 MR#: [id number] ADMIT: 06/15/2016 JOB ID: [id number] DATE OF SERVICE: 06/18/2016 REQUESTING CLINICIAN: [facility]. REASON FOR CONSULTATION: Hypoxemic respiratory failure in the setting of alcohol withdrawal, shock and acute systolic heart failure. HISTORY OF ILLNESS: The patient is an unfortunate 61-year-old with a complex history of bipolar disorder and schizoaffective disorder complicated by polysubstance abuse. Apparently he was hospitalized approximately one month ago with suicidal ideation and alcohol withdrawal. He was discharged to a crisis respite center but continue to use alcohol and, most recently, heroin, the latter a reported suicide attempt. He presented to the [facility] Emergency Department. He was admitted by the hospitalist service and was felt to be in alcohol withdrawal, although his last drink was only 3-4 hours before presentation. His agitation, tachypnea and tachycardia were managed with benzodiazepines and a dexmedetomidine drip, but this was complicated by hypotension. He received fluid resuscitation and chest x-rays suggested volume overload with vascular engorgement and central interstitial edema. Transthoracic echocardiogram showed severely decreased left ventricular ejection fraction, estimated at 20% to 25%. This was a new finding in comparison to a previous echocardiogram from February 2016 when left ventricular ejection fraction was reportedly well preserved. Yesterday evening, June 17, 2016, he required intubation "to protect his airway." Precedex was discontinued. Propofol infusion was begun. Blood and sputum have been sent for culture. Pulmonary and critical care consultation is now requested. PAST MEDICAL HISTORY: 1. Schizoaffective disorder. 2. Bipolar disorder. 3. Polysubstance abuse. 4. Hepatitis C. 5. Recent suicidal ideation. OUTPATIENT MEDICATIONS: Metoprolol 50 mg p.o. q.6 h. has been prescribed, but there are doubts as to his compliance with this. DRUG ALLERGIES: None known. CURRENT INPATIENT MEDICATIONS: 1. Propofol by infusion. 2. Aspirin 325 p.o. 3. Metoprolol 5 mg IV q.8 h. hours. 4. Heparin 5000 units subcu q.8 h. 5. Norepinephrine titrated to mean arterial pressure greater than 65. 6. Diazepam per [facility] protocol. 7. Thiamin. 8. Polyethylene glycol. 9. Zofran p.r.n. FAMILY HISTORY/SOCIAL HISTORY/REVIEW OF SYSTEMS: Not obtainable as patient is intubated, sedated and unresponsive. PHYSICAL EXAMINATION: Reveals a well-developed, well-nourished gentleman who appears his stated age. He has some head turning towards noxious stimuli but does not localize and does not open eyes. His blood pressure is 107/70, heart rate is 115 and irregular, respirations are 18 and he is and has been afebrile. HEENT exam: His pupils are pinpoint at 2 mm. Gaze appears conjugate. Sclerae anicteric. Conjunctivae not injected. The oropharynx has a moderate amount of purulent secretions but no ulcerations, petechiae or adherent exudate is seen. He is orally intubated and has orogastric tube in place as well. The trachea is midline. Thyroid is nonpalpable. Neck veins are flat. There is no cervical or supraclavicular lymphadenopathy. Chest shows symmetric expansion. On auscultation, he has good air movement anteriorly bilaterally but decreased breath sounds at both bases with some bronchial breath sounds at both posterior bases. No wheezing is heard. Cardiac exam shows an irregularly irregular rhythm with variable S1 and S2. No gallop is heard. There is a 2/6 holosystolic murmur in the left apex which is variable in intensity. His abdomen is very soft. There is no organomegaly. There are no bowel tones. There is no apparent tenderness, although he is quite sedated on propofol. Extremities: No cyanosis or clubbing. Feet are cool to palpation but without cyanosis. Pulses not palpable at ankle, trace at both wrists. Neurologic: No response to light touch or noxious stimulus except for slight head turning. DATABASE: Per the electronic medical record. His hemoglobin is 15, hematocrit 45, WBC 12.3, platelets 223. Sodium is 144, potassium 5.0, chloride 111, total CO2 15, BUN 41, creatinine 1.74, random glucose 121. Troponins have all been below the lower limit of detection. His B type nitrate peptide level on presentation was 1710. A series of four chest x-rays this admission reveal cardiomegaly with central vascular engorgement and some interstitial edema. Since admission, his most recent film now shows consolidation in the right medial lung base and an endotracheal tube whose tip lies 8 cm above the brittnee and which should be advanced. Blood cultures are no growth. Sputum examination shows no organisms. IMPRESSION: Acute respiratory failure. The exact cause for this gentleman's intubation is not obvious to me at this point. His chest x-ray does not show dramatic pulmonary edema to the degree that I suspect would have required him to be intubated. He may be developing a right-sided pneumonia, perhaps as a result of aspiration. Large amounts of sedation he was receiving yesterday may have produced sufficient respiratory depression that intubation was necessary. For now, he is quite easy to oxygenate. Arterial blood gas since admission shows a pH of 7.35, a pCO2 of 27, and a pO2 of 106 on an FiO2 of 30%. I suspect that once his hemodynamics normalize, he could be extubated if his agitation can be controlled. RECOMMEND: 1. Empiric antibiotics for possible community-acquired pneumonia and follow up results of tracheal aspirate culture. 2. Routine intensive care unit prophylaxis with subcutaneous unfractionated heparin and H2 suki. 3. Consider substituting benzodiazepine infusion for his propofol infusion given his hypotension which is currently requiring norepinephrine to support and as 1st line treatment for alcohol withdrawal. 4. Rate control strategy for now with his beta blockers. 5. Consider noncontrast brain CT. 6. Consider addition of opiate infusion to assist with his sedation and to cover the possibility of opiate withdrawal if he is a habitual user. 7. Identify surrogate decision maker/next of kin. 8. Metabolic replacement as you are with multivitamins and thiamin. 9. Serial metabolics and cautious volume loading now that he is intubated to ensure adequate renal perfusion. Thank you for requesting pulmonary critical care consultation. We will continue to follow with you while he remains critically ill and on mechanical ventilation. A total of 40 minutes critical care time as of this dictation exclusive of shared time and procedures. ANGELINA
[2016-06-18] MEDS ORDERED: Amiodarone 150 mg/100 mL D5W 150 MG in IV Premix 1 EACH IV ONE (23:25)
[2016-06-18] MEDS: Amiodarone 360 mg/200 mL D5W 360 MG in IV Premix 1 EACH IV SCH (23:56)
[2016-06-19] VITALS (13 sets, daily range): BP systolic 101–123; BP diastolic 72–90; PULSE 94–143; RESP 17–23; O2SAT 96–100
--- NOTE | 2016-06-19 00:38 | ABG ---
DateTimeAnalyzed 00:33:00 -_ pH ____7.430 - 7.350 7.450 pCO2 ___28.1__ -mmHg 35.0 45.0 pO2 ___65.6__ -mmHg 69.0 116 HCO3- ___18.4__ -mmol/L 22.0 26.0 ABE ___-4.2__ -mmol/L -2.0 2.0 tHb ___14.2__ -g/dL O2Hb ___90.9__ -% COHb ____0.9__ -% MetHb ____0.9__ -% sO2 ___92.6__ -% 25.0 FIO2 ___40.0__ -% PEEP ____5.0__ -cmH2O Set_RR ___20.0__ -b/min Vt __520.0__ -L Drawn By LT - Date/Time Notified____ 00:38:00 -_ Spontaneous_RR ___20.0__ -b/min Notified Whom SULLENBERGER - B 748 -mmHg tO2 ___18.2__ -Vol%
[2016-06-19] MEDS: Chlorhexidine 0.12% 15 mL Oral Solution MT SCH ×5 (03:57→20:10)
[2016-06-19] MEDS: Propofol Inj 1,000,000 MCG in IV Premix 1 EACH IV SCH ×4 (03:57→23:00)
--- NOTE | 2016-06-19 04:29 | ABG ---
DateTimeAnalyzed 04:24:00 -_ pH ____7.420 - 7.350 7.450 pCO2 ___28.2__ -mmHg 35.0 45.0 pO2 ___80.5__ -mmHg 69.0 116 HCO3- ___17.9__ -mmol/L 22.0 26.0 ABE ___-4.8__ -mmol/L -2.0 2.0 tHb ___14.3__ -g/dL O2Hb ___95.0__ -% COHb ____0.7__ -% MetHb ____0.8__ -% sO2 ___96.4__ -% 25.0 FIO2 ___40.0__ -% PEEP ____5.0__ -cmH2O Set_RR ___18.0__ -b/min Vt __520.0__ -L Drawn By LT - Date/Time Notified____ 04:28:00 -_ Spontaneous_RR ___18.0__ -b/min Notified Whom SULLENBERGER - B 750 -mmHg tO2 ___19.1__ -Vol%
[2016-06-19] MEDS: Amiodarone 360 mg/200 mL D5W 360 MG in IV Premix 1 EACH IV SCH ×2 (05:39→15:41)
--- NOTE | 2016-06-19 05:51 | NUR ---
Tele/Neuro Pt tele remained Aflutter 140s. IV Digoxin and metoprolol given as scheduled at beginning of shift 30 minutes apart. While the digoxin appeared to minimally help bring heart rate occasionally to 120s, pt remained in 140s. MD notified and called cardiology who recommended Amiodarone gtt with bolus (bolus to be given over 1 hour). This was initiated around midnight. Pt HR dropped to 120s for 4-5 hours, then jumped up to 140s. Upon assessment, pt only responsive to deep pain stimulation (sternal rub). Eye nearly pinpoint (~2mm) and slow reactive to light.Did not respond to oral stimulation and had minimal gag reflex with oral care. Sedation decreased for hypotension and to attempt sedation vacation. Had one episode where he moved head and attempted to initiate breaths on ventilator. Sedation adjusted accordingly. Care ongoing
[2016-06-19 05:59] LABS: Magnesium 1.7 mg/dL (1.6-2.6); Phosphorus 3.6 mg/dL (2.5-4.9)
--- NOTE | 2016-06-19 06:28 | NUR ---
Anatomy/Respiratory During on of pt turns, it was noticed that pt seemingly has deviated trachea significantly towards the R side. Lung sounds not diminished on R side, and pt does not appear to be in respiratory distress or needing increasing FiO2 needs. Stat ABG and CXR performed at time, and seemingly WNL needing minimal changes in vent settings (decrease in rate on ventilator). MD aware. Care ongoing.
[2016-06-19 06:49] LABS: BASOPHILS % (AUTO) 0.1 % (0-3); EOSINOPHILS % (AUTO) 1.2 % (0-5); MONOCYTES % (AUTO) 12.2 % (4-12); Mean Corpuscular Hemoglobin 32.3 pg (27.0-35.0); Mean Corpuscular Volume 95.4 fL (81-100); NEUTROPHILS % (AUTO) 74.5 % (40-74); Platelet Count 177 bil/L (150-400)
[2016-06-19] MEDS: Famotidine Inj 20 MG in IV Premix 1 EACH IV SCH (07:54)
[2016-06-19] MEDS: Multivit-Miner-Folic Acid-Iron Tablet PO SCH (07:55)
[2016-06-19] MEDS: MeTOProlol 1 mg/mL 5 mL Inj IVPUSH SCH ×3 (07:55→20:10)
[2016-06-19] MEDS: Heparin 5,000 Unit/mL Inj SUBQ SCH ×2 (07:56→16:47)
[2016-06-19] MEDS ORDERED: cefTRIAXone Inj 2,000 MG in Dextrose 5% Minibag Plus 50 ML IV SCH (08:30)
[2016-06-19] MEDS: Diltiazem Inj 125 MG in 0.9% Sodium Chloride 100 ML, Pharmacy To Mix 1 EA IV SCH ×2 (08:32→20:10)
--- NOTE | 2016-06-19 09:12 | DRSVH ---
PROCEDURE: X-RAY CHEST ONE VIEW ([id number]) INDICATIONS: tracheal deviation TECHNIQUE: One view of the chest was acquired. COMPARISON: [facility], CR, XR CHEST 1VW (PORTABLE), 06/18/2016, 9:03. FINDINGS: Surgical changes and devices: Stable positioning of the ETT, nasogastric tube and left PICC. Lungs and pleura: Small layering pleural effusions are present and no significant change in the mid/b asilar air space opacities. Mediastinum: Mediastinal contours appear normal. Heart size is normal. Bones and chest wall: No suspicious bony lesions. Overlying soft tissues appear unremarkable. IMPRESSION: Stable position of support lines and tubes. Small bilateral pleural effusions and basilar airspace opacities consistent with compressive atelecta sis, pneumonia or patchy pulmonary edema. Correlate clinically. Dictated by: Jean Carlos Stephens [facility] Interpreted: Kristi Christianson MD on 06/19/2016 at 9:10 Transcribed by: JULIOCESAR on 06/19/2016 at 9:12 Approved by: Kristi Christianson M.D. on 06/19/2016 at 9:57
[2016-06-19] MEDS: 0.9% Sodium Chloride 1,000 ML IV SCH (09:44)
[2016-06-19] MEDS: Norepineph 8,000 mCg/250 mL NS 8,000 MCG in IV Premix 1 EACH IV SCH (09:45)
--- NOTE | 2016-06-19 10:31 | NUR ---
PT NOTE-- Patient now intubated and sedated. Will discontinue PT orders. Please re-order when appropriate.
[2016-06-19] MEDS: Midazolam Inj 100 MG in IV Premix 1 EACH IV SCH (10:35)
--- NOTE | 2016-06-19 10:53 | PCM.PNMED ---
Subjective Date of Service Jun 19, 2016 Subjective Pulmonary critical care consultation progress note: Problems: Atrial fibrillation/flutter with RVR Alcohol withdrawal with likely contribution from polysubstance/opiate withdrawal (heroin reported historically) Acute heart failure with reduced ejection fraction (20-25%; EF was normal in 2015) Chest x-ray findings of bilateral small pleural effusions with bibasilar airspace opacities (patient started on empiric antibiotics) Anion gap metabolic acidosis with a primary respiratory alkalosis Metabolic encephalopathy History of hepatitis C (unknown if treated) Bipolar (report of suicidal ideation and history of suicide attempt) Torrey is a 61-year-old male with history of A. fib/flutter, alcohol abuse with history of withdrawal, polysubstance abuse (specifically heroine), hepatitis C, bipolar. He was admitted on 06/16/16 suicidal ideation and reported attempt with comments such as "they're after me." His last reported drink was 3-4 hours prior to admission, but shortly after admission there were concerns for alcohol withdrawal, and he was started on benzodiazepine and Precedex with CIWA monitoring. Subsequent to this management there is significance and concerned that he was not able to appropriately protect his airway and manage secretions, and for that reason he was subsequently intubated on 06/17/16. Regarding his A. fib/flutter with RVR he was initially loaded with digoxin and started on metoprolol. This was ineffective however, and cardiology became peripherally involved at which time amiodarone was initiated. This was effective for approximately 4-5 hours with rate control in the 120s, but thereafter has been in the 140s most of the time. Echocardiogram was performed to further assess cardiac function, and patient was found to have acute worsening of his EF to 20 and 25% (markedly decreased from normal in February 2016). Please note that x-rays at time of admission demonstrated fluid overload consistent with this new CHF. Given his chest x-ray findings and coarse breath sounds following intubation, there was concern for possible pneumonia/infectious process of the lung. He was initially started on ceftriaxone, but due to concerns of potential aspiration this was switched to Unasyn today. Patient has been afebrile throughout. Subjective overnight nursing expressed concern for a tracheal deviation to the right without diminished breath sounds on the right. Chest x-ray was performed which did not show pneumothorax, hydrothorax, otherwise concerning cause for this visual manifestation (please note that this is not noted on today his exam) . RTO nursing both noted minimal cough, and no gag reflex with oral care and suctioning. Secretions minimal. Review of systems impossible to obtain given patient's status. Exam Vital Signs Vital Sign - Last Date Time Temp Pulse Resp B/P Pulse Ox O2 Delivery O2 Flow Rate FiO2 06/19/16 09:05 100 30 06/19/16 07:40 37.7 143 18 123/86 Mechanical Ventilator 06/17/16 15:21 8.00 Intake and Output 06/18/16 06/18/16 06/19/16 Cumulative From/Thru 15:00 23:00 07:00 06/15/16 18:05 - 06/19/16 06:22 Intake Total 1519 ml 1809 ml 74124 ml Output Total 1600 ml 900 ml 3426 ml Balance -81 ml 909 ml 6968 ml Intake Oral 470 ml IV Total 1519 ml 1809 ml 9924 ml Output Urine Total 1400 ml 550 ml 2776 ml Gastric Drainage Total 200 ml 350 ml 650 ml # Bowel Movements 0 0 0 Exam Gen.: Obese gentleman lying in ICU bed, sedated and intubated. HEENT: Cephalic , pupils equal and reactive to light bilaterally, mucous membranes moist. Chest : Coarse breath sounds throughout. Cardiovascular: tachycardic with irregularly irregular rhythm noted on monitor. I do not appreciate a murmur. Radial pulses are 2+ bilaterally. Abdomen: Soft, bowel tones present, I do not appreciate any hepatosplenomegaly or other masses. Extremities: no edema noted , and I do not appreciate track wisdom on his arms to suggest sites of injection. Left-sided PICC line with clean dressing and no surrounding erythema. Lines: Left upper extremity PICC line, Valdes IVs and Medications IV Fluids Normal saline at 100 mL/h Medications Reviewed: Medications were reviewed in detail Medications Propofol at 25 Midazolam at 1 Amiodarone at 1 Lab and Diagnostics 74.5% neutrophils, anion gap of 17-18 with a delta/delta of about 1. Magnesium 1.7, calcium 8.1 (corrects to 9) LFTs have been normal. Lactic acid 0.9. EtOH level 86. Tox screen at admission positive for amphetamines and benzodiazepines. Micro: Blood, sputum cultures negative to date. MRSA nasal screen negative. Result Diagram: 06/19/16 0400 06/19/16 0400 X-Rays, CTs and MRIs Personally reviewed chest imaging from time of admission to today. Chest x-ray time of admission showed fluid overload consistent with new onset CHF. Chest x-ray today demonstrates bibasilar infiltrates with what looks like bilateral layering pleural effusions. Cardiac Echo Impressions Echocardiogram this admission demonstrates an EF of 20-25% without significant valvular disease (this is markedly decreased from normal EF in February 2016) Additional Diagnostics ABG this morning: PH 7.42, PCO2 28, PO2 80.5 with a sat of 96%, bicarbonate 18. Assessment & Plan 1. Intubated on 06/17/16 to protect airway during management of substance withdrawal (as noted in detail below)-some contribution from his new onset CHF, located by Veda blake with RVR (resulting in pulmonary fluid buildup). Current vent settings are FiO2 0.4, PEEP of 5 (equal to measured), respiratory rate 18, tidal volume 520. With peak and plateau pressures of 24/19 respectively. Based on his blood gas this a.m. there is some indication of respiratory compensation for the acidosis, but also a primary respiratory alkalosis likely secondary to his current state of sedation/depressed respiratory drive, and vent settings. We will discuss with RT, and adjust accordingly. Currently sedated on propofol 25, Midazolam 1. 2. Atrial fibrillation/flutter with RVR-patient currently on an amiodarone drip with when necessary metoprolol IV pushes. Some suggestion that cardiology is going to get involved in the case. As to the cause of his RVR, it is likely multifactorial with contributions from his new onset CHF and substance withdrawal. 3. Alcohol withdrawal with likely contribution from polysubstance/opiate withdrawal (heroin reported historically)-currently being monitored on CIWA protocol and sedated with midazolam and propofol drip. No sign of seizures/ delirium tremens per nursing reports, provider notes, or my examination assessment today. Given his underlying metabolic encephalopathy and unresponsiveness, there is consideration for EEG in the future once we have been able to wean some of these sedatives (as a status epilepticus in this gentleman is a possibility). Consideration for adding a low-dose opiate to avoid opiate withdrawal which would further complicate his course. His underlying bipolar disorder may complicate our assessment moving forward as far as sedation vacations and spontaneous breathing trials. He does not appear to be on any outpatient medication for his bipolar. 4. Acute heart failure with reduced ejection fraction (20-25%; EF was normal in 02/2016)-was weaned off of norepinephrine overnight, and no longer requiring blood pressure support beyond maintenance fluids currently running at 100 mL an hour. As noted in #1, cardiology potentially going to become involved in this case. 5. No Chest x-ray findings of bilateral small pleural effusions with bibasilar airspace opacities (patient started on empiric antibiotics)-strong clinical suspicion that this is not community-acquired pneumonia. Question some degree of aspiration given the initial findings in the right lower lobe following intubation. Today he was switched to Unasyn to account for this possible anaerobic coverage. I will check a pro-calcitonin, and if these are negative 2 , there is a very high likelihood that he is not infected, and the findings on chest x-ray are consistent with a possible aspiration pneumonitis on top of his already known of fluid overload. Please note that the patient has a reported history of hepatitis C (unknown if ever treated). 6. Anion gap metabolic acidosis with a primary respiratory alkalosis-unclear as to the source of his metabolic acidosis. Some consideration could certainly be given to an alcoholic ketosis (but please note the urine ketones were negative). Ingestions would certainly be a concern in this gentleman. No urinary crystals were noted on the UA, but consideration for checking and osmolal gap to assess for the possibility of methanol, ethylene glycol, propylene glycol. Also consideration for checking salicylate and acetaminophen levels. It should be noted that the lactate level today was 0.9. Primary respiratory alkalosis as in #1. 7. Metabolic encephalopathy-likely related to withdrawal in the setting of chronic underlying psychiatric disorders. I do not see an ammonia level on this gentleman, so we will add that. Other considerations (such as EEG) as noted above. 8. Acute kidney injury-baseline creatinine closer to 0.8, or 0.9. Perhaps related to his acid base disorder (such as possible ingestion etiology). Urine output continues to be good. Certainly the possibility of hypoperfusion secondary to his acute heart failure and hypotension requiring blood pressure support at least temporarily. Recommendations: -We will adjust vent settings in order to correct primary respiratory alkalosis -We will continue intubated and sedated as currently at this time, with the consideration for adding a low-dose opiate to avoid withdrawal. -Atrial fibrillation/flutter with RVR and acute heart failure to be managed by primary team with the possible involvement from cardiology. -Could continue Unasyn for now, but recommend stopping if pro-calcitonin negative 2, and no further signs clinically of infection. -Consideration for checking serum ketone level, measured osmolality (in order to calculate osmolal gap), salicylate and acetaminophen levels, and pending the osmolal gap consider checking methanol, ethylene glycol, propylene glycol, and even possibly an isopropyl alcohol level. -We will add an ammonia level -Consideration in the near future for possible EEG and/or CT scan of the head should mentation not improve as assessed by sedation vacations once more stable. CODE STATUS: Full code DVT prophylaxis with subcutaneous heparin GI prophylaxis with famotidine Critical care time spent on this patient's case: 45 minutes Attending Statement The patient was seen and examined together with Dr. Berry on 06/19/2016 and I agree with the history, exam and plan as outlined in the note above. Manny Berry DO Jun 19, 2016 10:05 Alvarado Trejo MD Jul 08, 2016 13:24
[2016-06-19] MEDS: Dextrose 5% 0.45% NaCl 1,000 ML IV SCH ×2 (11:09→20:10)
--- NOTE | 2016-06-19 11:12 | NUR ---
NUTRITION FOLLOW UP: ASSESS: 61 YO m admitted to CCU for afib w/ RVR. Pt on CIWA, required intubation to protect airway on 06/17. Pt has been NPO X 2 days. PMHx: Polysubstance abuse, schizoaffective disorder, hepatitis C, suicide ideation. DIET:NPO. Previous PO 100% (06/16). LABS: Reviewed. BUN 32, Cr 1.31, Glu 110, Alb 2.8 MEDICATIONS: Reviewed. Pressor, Propofol ~16 ml/hr providing 422 kcal/day. GI: No BM noted. SKIN: Wound eval pending. ANTHROPOMETRICS: Current Wt: 104.7 kg, BMI: 32.2 kg/m2, Admit weight: 98.8 kg, IBW: 78.18 kg (126% IBW) ESTIMATED NEEDS (VENT/BMI): Calories: 8092-2724 kcal/day (20-22 kcal/kg BW) Protein: 117-141 g protein (1.5-1.8 g/kg IBW) Fluids: Approx. 2964 ml (30 ml/kg BW) NUTRITION DIAGNOSIS: 1) Inadequate oral intake related to somnolence, respiratory distress, as evidenced by current NPO status.---PERSISTS. INTERVENTION: 1) If pt unable to be extubated, recommend initiation of nutrition support. Recommend enteral feedings of Jevity 1.5 starting at 10 ml/hr, once tolerance established, advance 10 ml q 6 hr to goal rate of 65 ml/hr. At goal TF will provide 2145 kcal (TF + Propofol = 2567 kcal/day), 91 g protein; meeting 100% calorie, 78% protein needs. 2) Once tolerance established, recommend adding Prosource liquid protein packet TID to provide a total of 124 g protein, meeting 100% of protein needs. 3) Adjust TF goal rate based on daily Propofol rate. MONITOR/EVALUATE: Vent/NPO status, nutrition support, labs, POC, GI/nutrition status. Follow per high nutrition risk guidelines.
--- NOTE | 2016-06-19 11:13 | PCM.PNMED ---
Subjective Date of Service Jun 19, 2016 Subjective She is intubated and sedated. ROS and subjective are not obtainable. Exam Vital Signs Vital Sign - Last Date Time Temp Pulse Resp B/P Pulse Ox O2 Delivery O2 Flow Rate FiO2 06/19/16 09:05 100 30 06/19/16 07:40 37.7 143 18 123/86 Mechanical Ventilator 06/17/16 15:21 8.00 Intake and Output 06/18/16 06/18/16 06/19/16 Cumulative From/Thru 15:00 23:00 07:00 06/15/16 18:05 - 06/19/16 06:22 Intake Total 1519 ml 1809 ml 38530 ml Output Total 1600 ml 900 ml 3426 ml Balance -81 ml 909 ml 6968 ml Intake Oral 470 ml IV Total 1519 ml 1809 ml 9924 ml Output Urine Total 1400 ml 550 ml 2776 ml Gastric Drainage Total 200 ml 350 ml 650 ml # Bowel Movements 0 0 0 Exam Been sedated. He appears comfortable. Endotracheal and nasogastric tube were placed Pupils are symmetric. Anicteric sclerae Supple. Lungs are clear, he is being actively ventilated Heart is irregular and tachycardic no murmur. Abdomen soft nondistended. Extremities are free of edema good pedal pulses. IVs and Medications Medications Reviewed: Medications were reviewed in detail Lab and Diagnostics Result Diagram: 06/19/16 0400 06/19/16 0400 X-Rays, CTs and MRIs Personally reviewed chest imaging from time of admission to today. Chest x-ray time of admission showed fluid overload consistent with new onset CHF. Chest x-ray today demonstrates bibasilar infiltrates with what looks like bilateral layering pleural effusions. Cardiac Echo Impressions Echocardiogram this admission demonstrates an EF of 20-25% without significant valvular disease (this is markedly decreased from normal EF in February 2016) Additional Diagnostics ABG this morning: PH 7.42, PCO2 28, PO2 80.5 with a sat of 96%, bicarbonate 18. Assessment & Plan 1. Intubated for airway protection and progressive pulmonary edema. Acute hypoxic respiratory failure. T patient was initially sedated with propofol. He was then placed on name and as a land drip for both sedation and to assist with his withdrawal. Ativan decrease the propofol as able. The patient has a stable FiO2 0.40 today. 2. Severe ETOH withdrawal, acute . POA. He did poorly with alcohol withdrawal protocol and low-dose Precedex yesterday. Because of persistent hypotension and progressive pulmonary edema the patient was intubated. At that point Precedex was discontinued and was placed on propofol for sedation as well as treatment of his DTs. He has ongoing Valium per his alcohol fall protocol. He appears comfortable today. We will continue with him and as planned. Today and attempt to wean the propofol if able. 3. Atrial flutter / fibrillation, acute on chronic. POA. The patient has had breakthrough tachycardia today. Firstly he is able to come off of norepinephrine yesterday. We will apply another dose of digoxin 0.125 IV as well as low-dose diltiazem drip for rate control. 4. Acute on chronic systolic heart failure. The patient has had progression of infiltrates on x- ray secondary to requiring fluid resuscitation for persistent hypotension yesterday. He is saturating well on his current vent settings. He has had a low urine output, will give 1 dose of Lasix 10 IV to encourage urine flow this morning. We will continue to watch pressures carefully. 5. Hypotension. This is multifactorial. The patient does have acute systolic heart failure based on interval echoes over about 18 months. His EF is about 25 %. The patient did wean off from norepinephrine yesterday. We will continue to watch the pressure closely. Part of his hypertension likely related to the medications he is needed for his withdrawal as well. 6. Suicidal ideation and attempt., acute. POA. -attempted suicide day prior to admission -remains actively suicidal and wishes to harm others -sitter at all times -The patient will require mental health evaluation after his acute alcohol withdrawal syndrome is resolved. Evaluation deferred pending his resolution of all, withdrawal and acute encephalopathy. 7. Acute metabolic encephalopathy, this did follow admission. This appears to primarily related to his alcohol withdrawal syndrome. Continue to treat the core problem. 8. Acid base/anabolic disorders. The patient has a complex metabolic acidosis , respiratory alkalosis with an anion gap metabolic acidosis and a non-anion gap metabolic acidosis. The patient does have residual lactic acidosis as well as evidence of acute and possibly chronic renal failure as contributors. 9. Relative hypoglycemia. We will convert his fluids from normal saline to D5 half work today and watch sugars. 10. DVT prophylaxis with subcutaneous heparin. Pain Evaluation: Adequate Pain Control Resuscitation Status: CPR: Attempt Resuscitation Time spent 35 minutes Jesse Kay MD Jun 19, 2016 11:13
--- NOTE | 2016-06-19 11:51 | NUR ---
DAPHNEY: Patient is intubated and unable to sign for self, asked MOLD DUMPER to follow up with family via phone.
[2016-06-19] MEDS ORDERED: Digoxin 0.25 mg/mL 2 mL Inj IV ONE (12:00)
--- NOTE | 2016-06-19 12:07 | NUR ---
Wound Care [facility] Received order for pressure ulcer protocol. Spoke with nurse who states she just turned patient and inspected skin closely. Reports no redness or areas of pressure found. Nurse reports patient with fragile medical status due to BPs and intubated. Requests wound care not turn patient again. Nurse to reconsult wound care services if needed.
[2016-06-19] MEDS: Ampicillin-Sulbactam Inj 1,500 MG in 0.9% Sodium Chloride 50 ML IV SCH ×2 (13:49→20:10)
[2016-06-19] MEDS: Dexmedetomidine 400 mCg/100 mL NS Premix IV SCH (16:47)
--- NOTE | 2016-06-19 18:05 | NUR ---
HEMODYNAMICS/RESPIRATORY/SEDATION Patient's heart rate in 120s-140s for most of shift, but currently in low 100s at end of shift. BPs have been stable, so diltiazem gtt added to cardiac regimen to help w/ rate control, along w/ amiodarone gtt and metoprolol IV push. Patient has tolerated these medications well, no sudden drop in BP or HR. Ventilator settings decreased to 30% FiO2/5 PEEP/520 Vt/13 Rate in hopes the patient will over-breathe the vent and help compensate for metabolic acidosis. He has tolerated these new settings well, w/ respirations in the 20s. Propofol and Versed for sedation, tolerating well currently. Sedation vacation attempted this morning, decreasing propofol to 20 mcg/kg/min, but patient's HR/BP/RR increased as he became agitated. Propofol turned back up to 25 mcg/kg/min and Versed resting at 2 mg/hr for sedation. Will continue to monitor vitals, hemodynamics, respiratory status and sedation needs.
[2016-06-20] VITALS (14 sets, daily range): BP systolic 81–113; BP diastolic 55–85; PULSE 92–133; RESP 13–20; O2SAT 98–100
[2016-06-20] MEDS: Heparin 5,000 Unit/mL Inj SUBQ SCH ×3 (01:14→15:40)
[2016-06-20] MEDS: Chlorhexidine 0.12% 15 mL Oral Solution MT SCH ×6 (01:14→20:41)
[2016-06-20] MEDS: MeTOProlol 1 mg/mL 5 mL Inj IVPUSH SCH ×4 (02:30→20:41)
[2016-06-20] MEDS: Amiodarone 360 mg/200 mL D5W 360 MG in IV Premix 1 EACH IV SCH ×2 (02:34→13:59)
[2016-06-20] MEDS: Ampicillin-Sulbactam Inj 1,500 MG in 0.9% Sodium Chloride 50 ML IV SCH ×4 (02:35→20:41)
[2016-06-20] MEDS: Dextrose 5% 0.45% NaCl 1,000 ML IV SCH ×2 (04:55→15:40)
[2016-06-20] MEDS: Propofol Inj 1,000,000 MCG in IV Premix 1 EACH IV SCH ×3 (04:55→20:41)
--- NOTE | 2016-06-20 05:38 | ABG ---
DateTimeAnalyzed 05:32:00 -_ pH ____7.437 - 7.350 7.450 pCO2 ___31.9__ -mmHg 35.0 45.0 pO2 ___74.1__ -mmHg 69.0 116 HCO3- ___21.1__ -mmol/L 22.0 26.0 ABE ___-1.7__ -mmol/L -2.0 2.0 tHb ___13.4__ -g/dL O2Hb ___93.2__ -% COHb ____1.1__ -% MetHb ____0.8__ -% sO2 ___95.0__ -% 25.0 FIO2 ___30.0__ -% PRVC 13 - PEEP ____5.0__ -cmH2O Vt __520.0__ -L Drawn By blf - Date/Time Notified____ 05:36:00 -_ Spontaneous_RR ___13.0__ -b/min Notified By blf - Notified Whom Kamey Ramos RN - B 759 -mmHg tO2 ___17.5__ -Vol% Jesse test _Positive -
[2016-06-20 05:43] LABS: Mean Corpuscular Volume 95.9 fL (81-100)
[2016-06-20 06:09] LABS: Magnesium 1.6 mg/dL (1.6-2.6)
[2016-06-20] MEDS: Norepineph 8,000 mCg/250 mL NS 8,000 MCG in IV Premix 1 EACH IV SCH (06:54)
[2016-06-20] MEDS: Dexmedetomidine 400 mCg/100 mL NS Premix IV SCH (06:54)
--- NOTE | 2016-06-20 07:11 | NUR ---
Tele/BP Pt tele shows afib/flutter throughout night. He was hypotensive with meds. Attempted to wean and d/c dilt gtt, but HR increased to 120s. Held AM dose of IV metoprolol. BP was stable despite being hypotensive with MAP being >65. Will continue to monitor. Care ongoing
[2016-06-20] MEDS: Multivit-Miner-Folic Acid-Iron Tablet PO SCH (07:44)
[2016-06-20] MEDS: Famotidine Inj 20 MG in IV Premix 1 EACH IV SCH (07:44)
[2016-06-20] MEDS ORDERED: Furosemide 10 mg/mL 4 mL Inj IVPUSH ONE ×2 (08:20→17:00)
--- NOTE | 2016-06-20 08:29 | NUR ---
Call[facility] and [facility] [place] regarding this patient and potential for transfer. Updated [employer]
--- NOTE | 2016-06-20 09:15 | DRSVH ---
PROCEDURE: X-RAY CHEST ONE VIEW, PORTABLE ([id number]) INDICATIONS: f/u bibasilar infiltrate TECHNIQUE: One view of the chest was acquired. COMPARISON: [facility], CR, XR CHEST 1VW, 06/19/2016, 0:22. [facility], CR, XR CHEST 1VW (PORTABLE), 06/18/2016, 9:03. FINDINGS: Surgical changes and devices: Stable position of ETT and nasogastric tube as well as the left PICC. Lungs and pleura: Interval increase in pulmonary edema and/or pneumonia involving the lung bases. Sm all layering pleural effusions persist. No pneumothorax. Mediastinum: Mediastinal contours appear normal. Heart size is normal. Bones and chest wall: No suspicious bony lesions. Overlying soft tissues appear unremarkable. IMPRESSION: 1. Increasing pulmonary edema and/or pneumonia at the lung bases and small layering pleural effusions redemonstrated. Dictated by: Jean Carlos CARBAJAL Interpreted: Latesha Mckeon MD on 06/20/2016 at 9:13 Transcribed by: MICKY on 06/20/2016 at 9:14 Approved by: Ltaesha Mckeon M.D. on 06/21/2016 at 16:19
--- NOTE | 2016-06-20 09:44 | PCM.PNMED ---
Subjective Date of Service Jun 20, 2016 Subjective Pulmonary critical care consultation progress note: Problems: Intubated on 06/17/16 for airway protection Atrial fibrillation/flutter with RVR Alcohol withdrawal with likely contribution from polysubstance/opiate withdrawal (heroin reported historically) Acute heart failure with reduced ejection fraction (20-25%; EF was normal in 2015) Chest x-ray findings of bilateral small pleural effusions with bibasilar airspace opacities (patient started on empiric antibiotics) Anion gap metabolic acidosis with a primary respiratory alkalosis Metabolic encephalopathy History of hepatitis C (unknown if treated) Bipolar (report of suicidal ideation and history of suicide attempt) Subjective: Overnight issues with blood pressure and see his on amiodarone drip and diltiazem drip with every 6 hours metoprolol pushes. As a result of this, nursing has held all further metoprolol pushes based on pressure, and in this morning has stopped the diltiazem drip as well. Currently heart rate and pressures look okay, continues in atrial flutter. Sedated and unresponsive. Review of systems impossible to obtain given patient's status. Exam Vital Signs Vital Sign - Last Date Time Temp Pulse Resp B/P Pulse Ox O2 Delivery O2 Flow Rate FiO2 06/20/16 08:00 98 90/70 100 30 06/20/16 07:25 Ventilator 06/20/16 07:25 36.8 14 06/17/16 15:21 8.00 Intake and Output 06/19/16 06/19/16 06/20/16 Cumulative From/Thru 15:00 23:00 07:00 06/15/16 18:05 - 06/19/16 17:37 Intake Total 1749 ml 92891 ml Output Total 775 ml 4201 ml Balance 974 ml 7942 ml Intake Oral 470 ml IV Total 1749 ml 33263 ml Output Urine Total 575 ml 3351 ml Gastric Drainage Total 200 ml 850 ml # Bowel Movements 0 0 Exam Gen.: Obese gentleman lying in ICU bed, sedated and intubated. HEENT: Normocephalic, pupils equal and reactive to light bilaterally, mucous membranes moist. Chest: Coarse breath sounds throughout. Cardiovascular: tachycardic with irregularly irregular rhythm consistent with atrial flutter noted on monitor. I do not appreciate a murmur. Radial pulses are 2+ bilaterally. Abdomen: Soft, bowel tones present but infrequent, I do not appreciate any hepatosplenomegaly or other masses. Extremities: Mild pitting edema noted in the lower extremities and nonpitting in the upper extremities. Left-sided PICC line with clean dressing and no surrounding erythema. Lines: Left upper extremity PICC line, Valdes IVs and Medications Medications Reviewed: Medications were reviewed in detail Lab and Diagnostics Anion gap of 15 with a delta/delta of about 1. Magnesium 1.6, calcium 7.8 ( corrects to 8.8). LFTs have been normal. Pro-calcitonin is negative 2. Tox screen at admission positive for amphetamines and benzodiazepines. Micro: Blood, sputum cultures negative to date. MRSA nasal screen negative. Result Diagram: 06/20/1652406/20/16524 X-Rays, CTs and MRIs Personally reviewed chest imaging from time of admission to today. Chest x-ray time of admission showed fluid overload consistent with new onset CHF. Chest x-ray today re-demonstrates fluid overload with bibasilar infiltrates with what looks like bilateral layering pleural effusions. Cardiac Echo Impressions Echocardiogram this admission demonstrates an EF of 20-25% without significant valvular disease (this is markedly decreased from normal EF in February 2016) Additional Diagnostics ABG this morning: PH 7.43, PCO2 32, PO2 74 with a sat of 95%, bicarbonate 21. Assessment & Plan 1. Intubated on 06/17/16 to protect airway during management of substance withdrawal (as noted in detail below)-some contribution from his new onset CHF, located by Veda blake with RVR (resulting in pulmonary fluid buildup). Current vent settings are FiO2 0.3, PEEP of 5 (equal to measured), respiratory rate 14, tidal volume 520. With peak and plateau pressures of 21/19 respectively. Based on his blood gas this a.m. there is some indication of respiratory compensation for the acidosis, but also a primary respiratory alkalosis likely secondary to his current state of sedation/depressed respiratory drive, and potentially his withdrawal. Ventilator adjustments indicated today. Currently sedated on propofol 30, Midazolam 1. 2. Atrial fibrillation/flutter with RVR-patient currently on an amiodarone drip with with diltiazem drip (now discontinued), and metoprolol IV pushes on hold due to blood pressure issues. Some suggestion that cardiology is going to get involved in the case. As to the cause of his RVR, it is likely multifactorial with contributions from his new onset CHF and substance withdrawal. 3. Alcohol withdrawal with likely contribution from polysubstance/opiate withdrawal (heroin and methamphetamine reported historically)-currently being monitored on CIWA protocol and sedated with midazolam and propofol drip. No sign of seizures/delirium tremens per nursing reports, provider notes, or my examination assessment today. Given his underlying metabolic encephalopathy and unresponsiveness, there is consideration for EEG in the future once we have been able to wean some of these sedatives (as a status epilepticus in this gentleman is a possibility). 4. Acute heart failure with reduced ejection fraction (20-25%; EF was normal in 02/2016)-does not appear to be ischemic in nature as all troponins have been negative. There is also no indication on echocardiogram of a dilated etiology. Low blood pressures overnight resulting in cessation of diltiazem drip and holding the metoprolol IV. Currently not requiring blood pressure support. As noted in #1, cardiology potentially going to become involved in this case. 5. Chest x-ray findings of fluid overload and bilateral small pleural effusions with bibasilar airspace opacities (patient started on empiric antibiotics)-given findings of fluid overload and his total fluid balance is admission being +8 L, we will initiate some diuresis this morning with 40 mg IV Lasix with reassessment and a couple hours to decide if we need more. Strong clinical suspicion that this is not community-acquired pneumonia. Question some degree of aspiration given the initial findings in the right lower lobe following intubation. Is on Unasyn currently to account for this possible anaerobic coverage. Pro-calcitonin are negative 2, and there is a very high likelihood that he is not infected, and the findings on chest x-ray are consistent with a possible aspiration pneumonitis on top of his already known of fluid overload. Sputum changes today (color and consistency changes without fever). Therefore, would recommend keeping Unasyn on board for now until sputum studies back. Please note that the patient has a reported history of hepatitis C (unknown if ever treated). 6. Anion gap metabolic acidosis (seems to be improving somewhat) with a primary respiratory alkalosis-unclear as to the source of his metabolic acidosis. Some consideration could certainly be given to an alcoholic ketosis ( but please note the urine ketones were negative). Ingestions would certainly be a concern in this gentleman. No urinary crystals were noted on the UA, but consideration for checking and osmolal gap to assess for the possibility of methanol, ethylene glycol, propylene glycol (or even isopropyl alcohol, though less likely). Also consideration for checking salicylate and acetaminophen levels. It should be noted that the lactate level today has been in normal limits. Primary respiratory alkalosis as in #1. 7. Metabolic encephalopathy-likely related to withdrawal in the setting of chronic underlying psychiatric disorders, with the possibility of contribution from his significant reduction in LVEF. Ammonia level is low. Other considerations (such as EEG) as noted above. 8. Acute kidney injury (improving)-baseline creatinine closer to 0.8, or 0.9. Perhaps related to his acid base disorder (such as possible ingestion etiology) . Urine output continues to be good (diuresis as noted above). Certainly the possibility of contribution from hypoperfusion secondary to his acute heart failure and hypotension. Recommendations: -Diuresis, will start with 40 mg IV Lasix followed by reassessment several hours later to assess for need for more. -Sedation vacation to assess mentation and possibly SBT if tolerates well -Atrial fibrillation/flutter with RVR and acute heart failure to be managed by primary team with the possible involvement from cardiology. -Sent a sputum for analysis. Continue Unasyn for now. -Consideration in the near future for possible EEG and/or CT scan of the head should mentation not improve as assessed by sedation vacations once more stable. CODE STATUS: Full code DVT prophylaxis with subcutaneous heparin GI prophylaxis with famotidine Critical care time spent on this patient's case: 30 minutes Attending Statement The patient was seen and examined together with Dr. Berry on 06/20/2016 and I agree with the history, exam and plan as outlined in the note above. Manny Berry DO Jun 20, 2016 08:30 Alvarado Trejo MD Jul 08, 2016 13:36
[2016-06-20] MEDS: Midazolam Inj 100 MG in IV Premix 1 EACH IV SCH (12:05)
--- NOTE | 2016-06-20 13:39 | NUR ---
NUTRITION FOLLOW UP ASSESS: 61 YO m admitted to CCU for afib w/ RVR. Pt on CIWA, required intubation to protect airway on 06/17. Sedation vacation attempt resulted in agitation, so propofol dose increased to previous amount. Pt has been NPO X 3 days. Received verbal order to start trickle TF. PMHx: Polysubstance abuse, schizoaffective disorder, hepatitis C, suicide ideation DIET: NPO. Previous PO 100% (06/16). LABS: Reviewed. Cl 109, Gluc 172, Ca 7.8, Ammonia <17, Alb 2.6 MEDICATIONS: Reviewed. Thiamin, Propofol @ 8.9 ml/hr providing 235 kcal/day GI: No BM noted x 5 days, RN noted bowel tones present SKIN: Wound eval completed 06/19 - no redness or pressure areas. ANTHROPOMETRICS: Current Wt: 105.7 kg, BMI: 32.5 kg/m2, Admit weight: 98.8 kg, IBW: 78.2 kg (126% IBW) ESTIMATED NEEDS (VENT/BMI 30-40): Calories: 0743-2579 kcal/day (20-25 kcal/kg BW) Protein: 115-140 g protein (1.5-1.8 g/kg IBW) Fluids: Approx. 2500 ml (~1 ml/kcal/day) NUTRITION DIAGNOSIS: 1) Inadequate oral intake related to somnolence, respiratory distress, as evidenced by current NPO status.---PERSISTS. INTERVENTION: 1) Per MD order, start trickle TF of Vital 1.5 at 10 ml/hr. 2) Once order advanced, recommend increasing enteral feedings by 10 ml q 6 hours to goal rate of 67 ml/hr. At goal, TF will provide 2210 kcal (TF + Propofol = 2446 kcal/day), 100 g protein; meeting 100% calorie needs and 87% protein needs. 3) Once TF at goal rate and tolerance is established, recommend adding one Prosource liquid protein packet to provide a total of 111g protein, meeting 97% of protein needs. 4) Adjust TF goal rate based on daily Propofol rate. 5) Recommend bowel regimen. MONITOR/EVALUATE: Vent/NPO status, nutrition support saji/adv, labs, POC, GI/nutrition status. Follow per high nutrition risk guidelines. Addendum: 06/20/16 at [address] I have read and agree with above student documentation. Cesia Herbert RD, CD
--- NOTE | 2016-06-20 14:25 | PCM.PNMED ---
Subjective Date of Service Jun 20, 2016 Subjective Patient is intubated and sedated. ROS and subjective not obtainable Exam Vital Signs Vital Sign - Last Date Time Temp Pulse Resp B/P Pulse Ox O2 Delivery O2 Flow Rate FiO2 06/20/16 12:30 Ventilator 06/20/16 12:30 36.6 95 13 103/78 100 30 06/17/16 15:21 8.00 Intake and Output 06/19/16 06/19/16 06/20/16 Cumulative From/Thru 15:00 23:00 07:00 06/15/16 18:05 - 06/19/16 17:37 Intake Total 1749 ml 32935 ml Output Total 775 ml 4201 ml Balance 974 ml 7942 ml Intake Oral 470 ml IV Total 1749 ml 70304 ml Output Urine Total 575 ml 3351 ml Gastric Drainage Total 200 ml 850 ml # Bowel Movements 0 0 Exam Patient intubated sedated. Anicteric sclerae. Oropharynx for endotracheal tube and OG tube in place. Neck supple. Lungs are clear with active ventilation. Heart is irregular but rate controlled no murmur. Abdomen is soft nondistended. Extremities normal form plus edema good pedal and radial pulses. IVs and Medications Medications Reviewed: Medications were reviewed in detail Lab and Diagnostics Result Diagram: 06/20/1652406/20/16524 X-Rays, CTs and MRIs Personally reviewed chest imaging from time of admission to today. Chest x-ray time of admission showed fluid overload consistent with new onset CHF. Chest x-ray today re-demonstrates fluid overload with bibasilar infiltrates with what looks like bilateral layering pleural effusions. Cardiac Echo Impressions Echocardiogram this admission demonstrates an EF of 20-25% without significant valvular disease (this is markedly decreased from normal EF in February 2016) Additional Diagnostics ABG this morning: PH 7.43, PCO2 32, PO2 74 with a sat of 95%, bicarbonate 21. Assessment & Plan 1. Intubated for airway protection and progressive pulmonary edema. Acute hypoxic respiratory failure. The patient was initially sedated with propofol. He was then placed on a midazolam drip for both sedation and to assist with his withdrawal. We have attempted also decrease the propofol as able. Is FiO2 infection down to 0.3 today. We did lighten up his sedation and he did fairly well and his breathing trial for about 30 minutes. He is also fluid overloaded and had a diuresis after 1 dose of Lasix of about 2 L. 2. Severe ETOH withdrawal, acute . POA. He did poorly with alcohol withdrawal protocol and low-dose Precedex yesterday. Because of persistent hypotension and progressive pulmonary edema the patient was intubated. At that point Precedex was discontinued and was placed on propofol for sedation as well as treatment of his DTs. He has ongoing Valium per his alcohol fall protocol. He appears comfortable today. We will continue with him and as planned. The patient became a little agitated and his sedation wean. Anticipate he will be sedated and intubated for at least another 24 hours. Is possible he might be able to be extubated tomorrow. This point we will continue the drips as they are. 3. Atrial flutter / fibrillation, acute on chronic. POA. The patient has had breakthrough tachycardia today. He continues to have periodic tachycardia. He was started on amiodarone yesterday. He had to come off the diltiazem drip for blood pressure reasons. His heart rate is typically staying at 100 or less. He does have IV metoprolol ordered when necessary but has not received this. Overall his rate control is reasonable. 4. Acute on chronic systolic heart failure. The patient has had progression of infiltrates on x-ray secondary to requiring fluid resuscitation for persistent hypotension yesterday. He is saturating well on his current vent settings. The patient is currently volume overloaded. At this point we will begin to diurese him. He did receive 1 dose of Lasix with good diuresis and will continue to do one daily dose of Lasix. 5. Hypotension. This is multifactorial. The patient does have acute systolic heart failure based on interval echoes over about 18 months. His EF is about 25 %. The patient did wean off from norepinephrine yesterday. His hypotension has improved. He has been off pressors for 2 days. He is tolerating some diuresis as well. 6. Suicidal ideation and attempt., acute. POA. -attempted suicide day prior to admission -remains actively suicidal and wishes to harm others -sitter at all times -The patient will require mental health evaluation after his acute alcohol withdrawal syndrome is resolved. Evaluation deferred pending his resolution of all, withdrawal and acute encephalopathy. 7. Acute metabolic encephalopathy, this did follow admission. This appears to primarily related to his alcohol withdrawal syndrome. Continue to treat the core problem. 8. Acid base/anabolic disorders. The patient has a complex metabolic acidosis , respiratory alkalosis with an anion gap metabolic acidosis and a non-anion gap metabolic acidosis. The patient does have residual lactic acidosis as well as evidence of acute and possibly chronic renal failure as contributors. 9. Relative hypoglycemia. We converted his fluids from normal saline to D5 half saline today and watch sugars. This has stabilized after institution of D5 half 10. DVT prophylaxis with subcutaneous heparin. Pain Evaluation: Adequate Pain Control Resuscitation Status: CPR: Attempt Resuscitation Time spent 35 minutes Jesse Kay MD Jun 19, 2016 11:13 Pain Evaluation: Adequate Pain Control VTE Mechanical Devices: Intermittant Pneumatic CD Resuscitation Status: CPR: Attempt Resuscitation Time spent 30 minute Jesse Kay MD Jun 20, 2016 14:25
--- NOTE | 2016-06-20 15:57 | PCM.CHPCAR ---
Consult Subjective Date of service Jun 20, 2016 Date of admit Jun 15, 2016 at 22:29 Provider Requesting Consult Requesting Provider: Jesse Kay MD Primary Care Physician Primary Care Provider: Clinic,[facility] Chief Complaint Newly diagnosed LV systolic dysfunction by echocardiogram History of Present Illness This is a 61-year-old now para last the daughter was very athletic and actually participated in multiples semi-pro sports. Apparently his and his girlfriend and he has got into drug abuse and alcohol abuse as well. The patient came in for alcohol withdrawal and apparently developed respiratory distress and had to be intubated. The patient had lactic acidosis but was treated appropriately. The patient had an echocardiogram that showed an EF around 25% with global hypokinesis. There is also evidence of significant tricuspid and mitral regurgitation. The patient also went into rapid atrial fibrillation. I discussed briefly with the resident yesterday about managing his rapid atrial for ablation with hypotension. It was decided to start the patient on intravenous amiodarone. Since then his heart rate has slowed down but he still in atrial fibrillation with mild RVR. His blood pressure is still relatively low. He still currently intubated but apparently did quite well on pressure trial this morning. They are hoping that they can extubate him tomorrow. He received IV Lasix today and had a pretty good urine output. Apparently he might be fluid overloaded. Review of Systems Review of Systems Unable to obtain since patient is currently intubated. PMH Past Medical History Polysubstance abuse Schizoaffective disorder Hepatitis C Bedside Blood Glucose: 116 Scheduled Aspirin Chew (Aspirin Chew) 81 Mg Chew 325 MG PO DAILY Metoprolol Succinate ER (Metoprolol Succinate ER) 50 Mg Tab.er.24h 100 MG PO BID Vit#96/Ferrous Fum/FA ( Tablet) 1 Each Tablet 1 TABLET PO DAILY Current Inpatient Medications Current Medications Thiamine HCl 100 mg 100 mg DAILY PO Last administered on 06/20/16 07:44; Admin Dose 100 MG; Start 06/19/16 at 08:30 Ceftriaxone Sodium 2000 mg/ Dextrose/Water 50 ml @ 100 mls/hr Q24 IV Last administered on 06/19/16 07:54; Admin Dose 100 MLS/HR; Start 06/19/16 at 08:30 ; Stop 06/19/16 at 08:56; Status DC Diltiazem HCl 125 mg/Sodium Chloride/ Miscellaneous 125 ml @ 5 mls/hr Q24H IV Last administered on 06/19/16 20:10; Admin Dose 5 MLS/HR; Start 06/19/16 at 07: 30 Ampicillin Sodium/ Sulbactam Sodium 1500 mg/Sodium Chloride 50 ml @ 100 mls/hr Q6 IV Last administered on 06/20/16 07:44; Admin Dose 100 MLS/HR; Start at 14:30 Dextrose/Sodium Chloride 1,000 ml @ 100 mls/hr Q10H IV Last administered on 04:55; Admin Dose 100 MLS/HR; Start 06/19/16 at 10:20 Allergies: Coded Allergies: No Known Allergies (Verified , 06/15/16) Family History Family History Unable to obtain Social History Hx Alcohol Use: Yes (daily)Hx Substance Use: Yes (Heroine yesterday)Hx Tobacco Use: Yes Smoking Status: Current Every Day Smoker (3-4 per day) Living Arrangement: Homeless Exam Vital Signs Vital Sign - Last Date Time Temp Pulse Resp B/P Pulse Ox O2 Delivery O2 Flow Rate FiO2 06/20/16 15:14 134 95/75 100 30 06/20/16 12:30 Ventilator 06/20/16 12:30 36.6 13 06/17/16 15:21 8.00 Intake and Output 06/19/16 06/19/16 06/20/16 Cumulative From/Thru 15:00 23:00 07:00 06/15/16 18:05 - 06/19/16 17:37 Intake Total 1749 ml 38095 ml Output Total 775 ml 4201 ml Balance 974 ml 7942 ml Intake Oral 470 ml IV Total 1749 ml 55929 ml Output Urine Total 575 ml 3351 ml Gastric Drainage Total 200 ml 850 ml # Bowel Movements 0 0 Objective GENERAL: This is a well-nourished, well-developed patient, in no apparent distress. HEAD: Atraumatic. Normocephalic. No temporal or scalp tenderness. EYES: Pupils sluggish. No scleral icterus. No injection or drainage. ENT: Nose without bleeding, purulent drainage or septal hematoma. Throat without erythema, tonsillar hypertrophy or exudate. NECK: Trachea midline.Supple, nontender CARDIOVASCULAR: Irregular regular rhythm without murmurs, gallops, or rubs. RESPIRATORY: Clear to auscultation. Breath sounds equal bilaterally. No wheezes , rales, or rhonchi. GASTROINTESTINAL: Abdomen soft, non-tender, nondistended. No hepato-splenomegaly , or palpable masses. No guarding. EXTREMITIES: No clubbing, cyanosis, or edema. No joint tenderness, effusion, or edema noted. No calf tenderness. BACK: Grossly normal Lab and Diagnostics Result Diagram: 06/20/1652406/20/16524 X-Rays, CTs and MRIs Date of Service: 06/20/16 06 Caution: Report not yet finalized and possibly incomplete! PROCEDURE: X-RAY CHEST ONE VIEW, PORTABLE ([id number]) INDICATIONS: f/u bibasilar infiltrate TECHNIQUE: One view of the chest was acquired. COMPARISON: [facility], CR, XR CHEST 1VW, 06/19/2016, 0:22. [facility], CR, XR CHEST 1VW (PORTABLE), 06/18/2016, 9:03. FINDINGS: Surgical changes and devices: Stable position of ETT and nasogastric tube as well as the left PICC. Lungs and pleura: Interval increase in pulmonary edema and/or pneumonia involving the lung bases. Small layering pleural effusions persist. No pneumothorax. Mediastinum: Mediastinal contours appear normal. Heart size is normal. Bones and chest wall: No suspicious bony lesions. Overlying soft tissues appear unremarkable. IMPRESSION: 1. Increasing pulmonary edema and/or pneumonia at the lung bases and small layering pleural effusions redemonstrated. Additional Diagnostics: Echocardiogram Report Name: MARÍA JUAREZ KStudy Date: 06/16/2016 Height: 71 in Hospital Exam Location: [facility] Weight: 218 lb Gender: Male BSA: 2.2 m2 : 1955 Age: 61 yrs BP: 142/112 mmHg Reason For Study: DYSPNEA Ordering Physician: HOSPITALIST [facility] Performed By: Brandan Maurice Referring Physician: [facility] Interpretation Summary The left ventricle is normal in size. Left ventricular systolic function is moderate to severely reduced. The ejection fraction is estimated to be 25-30%. Right ventricular systolic function is moderately reduced. The mitral valve leaflets appear mildly thickened, but open well. There is severe mitral regurgitation. There is severe tricuspid regurgitation. The right ventricular systolic pressure is estimated at 45 mmHg assuming a right atrial pressure of 15 mm Hg. There is marked deterioration in LVEF and increase in MR and TR, consider urgent cardiology evaluation Assessment & Plan Problems: (1) Acute systolic (congestive) heart failure Plan: New-onset acute systolic heart failure. Patient has multiple etiologies for his cardiac dysfunction such as drug abuse, alcohol abuse, and/or tachycardia induced. The patient's blood pressure is still quite low on today' s examination. I would just simply continue with intravenous amiodarone for rate/rhythm control of atrial fibrillation. He does appear to be slightly volume overloaded based on his chest x-ray. Recommend to give another dose of IV Lasix tonight and tomorrow morning in order to improve his chances of being extubated. Once his blood pressure has become more stable then consider starting low-dose metoprolol succinate. If his blood pressure handles that then consider starting low-dose lisinopril. I am hopeful that with behavioral modification and with advancing his heart failure medical therapy, his LV ejection fraction should improve. If not then one may consider performing a coronary angiogram as an outpatient to exclude ischemic heart disease. His daughter states that she will like to take him to [place] so he can get his life back in order. He will need to establish with a wound/ostomy nurse there if he does go to [place]. Status: Acute ICD Code: I50.21 (2) Atrial fibrillation with RVR Plan: Patient continues to have atrial fibrillation but his rate is better controlled with amiodarone. I will continue with amiodarone infusion until he is able to take oral beta suki therapy. I suspect that once everything has settled down, he should spontaneously cardioverted back into sinus rhythm. For now just continue with full dose aspirin for prevention of cardiac embolic stroke. Status: Acute ICD Code: I48.91 (3) Atrial flutter Qualifiers: Atrial flutter type: typical Qualified Code: I48.3 - Typical atrial flutter Status: Acute ICD Code: I48.92 (4) Alcohol intoxication Qualifiers: Complication of substance-induced condition: with delirium Qualified Code: F10.121 - Alcohol abuse with intoxication delirium Status: Acute ICD Code: F10.129 Pain Evaluation: Adequate Pain Control VTE Mechanical Devices: Intermittant Pneumatic CD Resuscitation Status: CPR: Attempt Resuscitation Time spent Critical care time 60 minutes Gabriel Hurd MD Jun 20, 2016 15:57
--- NOTE | 2016-06-20 18:17 | NUR ---
RESPIRATORY/HEMODYNAMICS/URINE OUTPUT/TUBE FEED Sedation weaned to 10 mcg/kg/min of Propofol and 1 mg/hr of Versed, spontaneous breathing trial completed at 30% FiO2, 10/5 PEEP. Patient tolerated decreased sedation and SBT for approximately 35 minutes, then required resting settings be restored on vent and sedation turned up to 20 mcg/kg/min of Propofol. Patient has tolerated this most of the shift, w/ respiratory rate between 13 and 21. Will continue to monitor respiratory status and sedation needs. BPs slowly trending down throughout NOC shift, and into early day shift, so Diltiazem on hold. As shift progressed, BPs started to increase steadily and HR in 130s-140s, so Diltiazem restarted at 5 mg/hr. Amio gtt continues at 0.5 mg/min. Lasix 40 mg administered IV push, w/ urine output of 2800 mL this shift. Tube feed started at trickle rate of 10 mL/hr w/ 40 mL flush Q4H. Will continue to monitor residuals, urine output and vitals.
[2016-06-21] VITALS (13 sets, daily range): BP systolic 99–119; BP diastolic 68–92; PULSE 85–132; RESP 13–20; O2SAT 95–100
[2016-06-21] MEDS: Chlorhexidine 0.12% 15 mL Oral Solution MT SCH ×6 (00:12→20:37)
[2016-06-21] MEDS: Heparin 5,000 Unit/mL Inj SUBQ SCH ×3 (00:13→16:35)
[2016-06-21] MEDS: Propofol Inj 1,000,000 MCG in IV Premix 1 EACH IV SCH ×2 (02:19→21:12)
[2016-06-21] MEDS: Dextrose 5% 0.45% NaCl 1,000 ML IV SCH ×3 (02:19→19:12)
[2016-06-21] MEDS: Amiodarone 360 mg/200 mL D5W 360 MG in IV Premix 1 EACH IV SCH ×2 (02:19→13:41)
[2016-06-21] MEDS: MeTOProlol 1 mg/mL 5 mL Inj IVPUSH SCH ×4 (02:26→20:37)
[2016-06-21] MEDS: Diltiazem Inj 125 MG in 0.9% Sodium Chloride 100 ML, Pharmacy To Mix 1 EA IV SCH (02:27)
[2016-06-21] MEDS: Ampicillin-Sulbactam Inj 1,500 MG in 0.9% Sodium Chloride 50 ML IV SCH ×4 (02:27→20:37)
--- NOTE | 2016-06-21 06:43 | NUR ---
Cardiac P: HR from 97-130's afib controlled rate to RVR, map>65. on amio gtt & diltiazem gtt. I: given routine IV metoprolol 5mg, increased dilt gtt to 10 mg/hr E: rate controlled 80's aflutter. agitation P: vent support w/ fio2 0.30, sp02 >95%, versed and propofol gtt sedation, intermittent agitation, sitting up, bronchospastic. I: Bolused with propofol 30mcg x 3 E: RASS -2 to -3
[2016-06-21] MEDS: Esmolol 2,500 mg/250 mL NS 2,500,000 MCG in IV Premix 1 EACH IV SCH ×2 (07:30→14:23)
[2016-06-21 07:34] LABS: Magnesium 1.6 mg/dL (1.6-2.6)
--- NOTE | 2016-06-21 07:39 | ABG ---
DateTimeAnalyzed 07:34:00 -_ pH ____7.381 - pCO2 ___29.1__ -mmHg pO2 ___49.4__ -mmHg HCO3- ___16.9__ -mmol/L ABE ___-6.8__ -mmol/L tHb ___10.3__ -g/dL O2Hb ___81.9__ -% COHb ____1.1__ -% MetHb ____1.4__ -% sO2 ___84.0__ -% FIO2 ___30.0__ -% PRVC 520 - PEEP ____5.0__ -cmH2O Set_RR ___13.0__ -b/min Vt __586.0__ -L Drawn By jmw - Date/Time Notified____ 07:38:00 -_ Spontaneous_RR ___17.0__ -b/min Notified By JMW - Notified Whom DR DE LA HOUSSAYE -___ B 763 -mmHg tO2 ___11.9__ -Vol% Jesse test N/A -
--- NOTE | 2016-06-21 07:39 | PCM.PNMED ---
Subjective Date of Service Jun 21, 2016 Subjective Pulmonary critical care consultation progress note: Problems: Intubated on 06/17/16 for airway protection Atrial fibrillation/flutter with RVR Alcohol withdrawal with likely contribution from polysubstance/opiate withdrawal (meth and heroin reported historically) Acute heart failure with reduced ejection fraction (25-30%; EF was normal in 2015) Chest x-ray findings of fluid overload, bilateral small pleural effusions with bibasilar airspace opacities (patient on empiric antibiotics with coverage for aspiration etiology) Anion gap metabolic acidosis with a primary respiratory alkalosis Metabolic encephalopathy History of hepatitis C (unknown if treated) Bipolar (report of suicidal ideation and history of suicide attempt) Subjective: Yesterday did rather well on SBT following sedation vacation ( Propofol weaned to 10, and Midaz stayed at 1). He tolerated 10/5 at FiO2 of 0.3 for approx 35 minutes. Trickle feeds via tube were initiated to assess for bowel function and to start the recovery process, and well-tolerated overnight ( please note these were initiated yesterday afternoon). Overnight, intermittent agitation reported by nursing requiring Propofol bolus x 3. Diltiazem ggt was titrated to 10, and he received a dose of IV Metoprolol for rate control. Otherwise uneventful. Review of systems impossible to obtain given patient's status. Exam Vital Signs Vital Sign - Last Date Time Temp Pulse Resp B/P Pulse Ox O2 Delivery O2 Flow Rate FiO2 06/21/16 04:00 36.6 104 13 102/89 95 Mechanical Ventilator 30 06/17/16 15:21 8.00 Intake and Output 06/20/16 06/20/16 06/21/16 Cumulative From/Thru 15:00 23:00 07:00 06/15/16 18:05 - 06/21/16 05:24 Intake Total 1918 ml 1399 ml 1877 ml 33948 ml Output Total 700 ml 3000 ml 350 ml 8251 ml Balance 1218 ml -1601 ml 1527 ml 9086 ml Intake Oral 470 ml IV Total 1918 ml 1399 ml 1638 ml 53793 ml Tube Feeding 119 ml 119 ml Tube Irrigant 120 ml 120 ml Output Urine Total 450 ml 2800 ml 350 ml 6951 ml Gastric Drainage Total 250 ml 200 ml 1300 ml # Bowel Movements 0 0 0 0 Exam Gen.: Obese gentleman lying in ICU bed, sedated and intubated, and does not appear to be in acute distress. HEENT: Normocephalic, pupils equal and reactive to light bilaterally, mucous membranes moist. Chest: Clear breath sounds today throughout the anterior and lateral antoine. Cardiovascular: tachycardic with irregularly irregular rhythm consistent with atrial flutter noted on monitor. I do appreciate a 2/6 systolic murmur best heard in the apex. Radial pulses are 2+ bilaterally. Abdomen: Soft, bowel tones present, I do not appreciate any hepatosplenomegaly or other masses. Extremities: Mild nonpitting edema noted in the lower extremities and upper extremities. Left- sided PICC line with clean dressing and no surrounding erythema. UOP yesterday 3250, today so far 350 recorded. His overall fluid balance this admission is +9L. Lines: Left upper extremity PICC line, Valdes IVs and Medications IV Fluids D5NS running at 100 mL per hour Medications Reviewed: Medications were reviewed in detail Medications Diltiazem drip at 10 mg per hour Amiodarone drip at 0.5 mg/h Charlie Trevino at 1 mg/h Propofol at 20 mcg/kg/h Tube feeds at 10 mL per hour [facility] AG is approximately 20.5 (slightly worsened since yesterday). Delta/delta is 1.4 Magnesium is 1.6 Calcium is 8 (corrects to approximately 9) Micro: Blood, sputum cultures negative to date. Repeat sputum sample was sent on 06/20/16 given changes in sputum consistency and color: Studies so far showing only moderate polys, and no organisms. MRSA nasal screen negative. Result Diagram: 06/20/16 0506/20/16 0525 X-Rays, CTs and MRIs Personally reviewed chest imaging from time of admission to today. Chest x-ray time of admission showed fluid overload consistent with new onset CHF. Chest x-ray following intubation demonstrated a right lower lobe opacity consistent with possible pneumonia/likely aspiration. Yesterday's chest x-ray demonstrated additional, worsening fluid overload. Today re-demonstrates fluid overload (however much improved) with persistent bibasilar infiltrates with what looks like bilateral layering pleural effusions. Cardiac Echo Impressions Echocardiogram this admission demonstrates an EF of 25-30% without significant valvular disease (this is markedly decreased from normal EF in February 2016) Additional Diagnostics VBG this morning: PH 7.38, PCO2 29, PO2 49.4 with a sat of 84%, bicarbonate 17. Assessment & Plan 1. Intubated on 06/17/16 to protect airway during management of substance withdrawal (as noted in detail below)-some contribution from his new onset CHF, and A. fib with RVR (resulting in pulmonary fluid buildup, though his lungs sound remarkably clear today). Current vent settings are FiO2 0.3, PEEP of 5 ( equal to measured), respiratory rate 13 (patient is overbreathing somewhat), tidal volume 520. With peak and plateau pressures equivalent to yesterday's assessment and looking good. We will repeat a venous blood gas today to assess his ongoing acid base disorder. Currently sedated on propofol 20, Midazolam 1. Consideration for adding a low dose fentanyl drip should we continue to see intermittent agitation (this may help with irritation from the ETT). 2. Atrial fibrillation/flutter with RVR-patient currently on an amiodarone drip with with diltiazem drip, and metoprolol IV pushes. Cardiology has become involved and recommend continuing with amiodarone drip. Discussed his current heart rate and blood pressures with primary hospitalist this morning, and consideration for switching amiodarone and diltiazem to a single agent (i.e. esmolol) as he seems to respond rather well to beta blockade. As to the cause of his RVR, it is likely multifactorial with contributions from his new onset CHF and substance withdrawal/abuse. 3. Alcohol withdrawal with likely contribution from polysubstance/opiate withdrawal (heroin and methamphetamine reported historically)-currently being monitored on CIWA protocol and sedated with midazolam and propofol drip. No sign of seizures/delirium tremens per nursing reports, provider notes, or my examination assessment today. Given his metabolic encephalopathy and unresponsiveness (coupled with his agitation and observed distress when sedation is weaned), there is consideration for EEG (as a status epilepticus in this gentleman is a possibility). 4. Acute heart failure with reduced ejection fraction (25-30%; EF was normal in 02/2016)-does not appear to be ischemic in nature as all troponins have been negative. There is also no indication on echocardiogram of a dilated etiology. IV cardiac medications as noted above in #2, and diuresis as noted below in # 5. Cardiology consulted by primary team. Would be prudent to perform limited echo prior to discharge to assess EF. 5. Chest x-ray findings of fluid overload and bilateral small pleural effusions with bibasilar airspace opacities (patient on empiric antibiotics)- significant diuresis was performed yesterday with a single dose of IV Lasix. Unfortunately, overnight his recorded urine output is only about 300 mL. Given findings of fluid overload and his total fluid balance this admission being +9 L , we will consider some further diuresis this morning with 40 mg IV Lasix if his renal function and electrolytes look acceptable on this mornings lab. Will also reduce his IVF with D5NS from 100 mL per hour to 50 mL per hour. Strong clinical suspicion that this is not community-acquired pneumonia. Question some degree of aspiration given the initial findings in the right lower lobe following intubation. Is on Unasyn currently to account for this possible anaerobic coverage. Pro-calcitonin are negative 2, and there is a very high likelihood that he is not infected, and the findings on chest x-ray are consistent with a possible aspiration pneumonitis on top of his already known of fluid overload. However, yesterday sputum changes were noted with routine suctioning (color and consistency changes without fever), and not so routine with finding of mucous plugs. Therefore, would recommend keeping Unasyn on board for now until final sputum studies back. Please note that the patient has a reported history of hepatitis C (unknown if ever treated). Significant concern that he is going septic based on his venous gas O2 saturation of 84 (should be much lower given his EF). Will repeat blood and urine cultures. Consideration for broadening antibiotic coverage. 6. Anion gap metabolic acidosis (somewhat worse today) with a primary respiratory alkalosis-repeat venous blood gas as noted above. Unclear as to the source of his metabolic acidosis. Some consideration could certainly be given to an alcoholic ketosis (but please note the urine ketones were negative) . Ingestions would certainly be a concern in this gentleman. No urinary crystals were noted on the UA, but consideration for checking and osmolal gap to assess for the possibility of methanol, ethylene glycol, propylene glycol ( or even isopropyl alcohol, though less likely). Also consideration for checking salicylate and acetaminophen levels. It should be noted that the lactate level has been in normal limits throughout hospitalization. 7. Metabolic encephalopathy-likely related to withdrawal in the setting of chronic underlying psychiatric disorders, with the possibility of contribution from his significant reduction in LVEF. Ammonia level is low. Other considerations (such as EEG) as noted above. 8. Acute kidney injury (improving)-baseline creatinine closer to 0.8, or 0.9. Perhaps related to his acid base disorder (such as possible ingestion etiology) . Urine output somewhat concerning overnight as noted above. Certainly the possibility of contribution from hypoperfusion secondary to his acute heart failure and hypotension as the major initial insult. Recommendations: -We will await pending labs for this morning in addition to pending chest x-ray and venous blood gas. -Diuresis: start Lasix ggt. -Hold off on sedation vacation and SBT today given current acidosis and concern for sepsis -Will stop Midazolam ggt, and start Ativan 0.5mg q4h PRN for agitation -Consideration for adding a low dose fentanyl drip to cover for ETT irritation -Atrial fibrillation/flutter with RVR and acute heart failure to be managed by primary team with cardiology. -Pending multiple culture analysis. Continue Unasyn for now. ?broadening. -Consideration in the near future for possible EEG and/or CT scan of the head should mentation not improve as assessed by sedation vacations once more stable. CODE STATUS: Full code DVT prophylaxis with subcutaneous heparin GI prophylaxis with famotidine Nutrition: Has been tolerating trickle feeds via his OGT rather well overnight ( though it has not quite been 24 hours). If still tolerating well at the 24- hour citlaly, we will consider advancing tube feeds as tolerated to goal (per recommendation by dietitian). Critical care time spent on this patient's case: 30 minutes Attending Statement The patient was seen and examined together with Dr. Berry on 06/21/2016 and I agree with the history, exam and plan as outlined in the note above. Manny Berry DO Jun 21, 2016 07:06 Alvarado Trejo MD Jul 09, 2016 13:04
[2016-06-21] MEDS: Famotidine Inj 20 MG in IV Premix 1 EACH IV SCH (07:46)
[2016-06-21] MEDS: Multivit-Miner-Folic Acid-Iron Tablet PO SCH (07:48)
[2016-06-21 08:02] LABS: BASOPHILS % (AUTO) 0.2 % (0-3); EOSINOPHILS % (AUTO) 4.6 % (0-5); MONOCYTES % (AUTO) 12.8 % (4-12); Mean Corpuscular Hemoglobin 31.6 pg (27.0-35.0); Mean Corpuscular Volume 96.5 fL (81-100); NEUTROPHILS % (AUTO) 65.1 % (40-74); Platelet Count 193 bil/L (150-400)
--- NOTE | 2016-06-21 08:29 | NUR ---
Called Mary in patient access at [place] she is stating no bed this morning. Updated [employer]
--- NOTE | 2016-06-21 10:02 | DRSVH ---
PROCEDURE: X-RAY CHEST ONE VIEW, PORTABLE ([id number]) INDICATIONS: f/u infiltrate and fluid overload TECHNIQUE: One view of the chest was acquired. COMPARISON: [facility], CR, XR CHEST 1VW (PORTABLE), 06/20/2016, 5:54. FINDINGS: Surgical changes and devices: Stable positioning of ETT, nasogastric tube and left PICC. Lungs and pleura: Slight decrease in edema as well as right basilar airspace opacity. Persistent con solidation with air bronchograms involving the left lung base. Mediastinum: Mediastinal contours appear normal. Heart size is normal. Bones and chest wall: No suspicious bony lesions. Overlying soft tissues appear unremarkable. IMPRESSION: Overall interval decrease in edema as well as air space opacity within the right lung bas e and persistent consolidation within the left lung base suggestive of atelectasis, pneumonia or resi dual patchy pulmonary edema. Dictated by: Jean Carlos Stephens [facility] Interpreted: Long Pascal MD on 06/21/2016 at 10:00 Transcribed by: RADHA on 06/21/2016 at 10:01 Approved by: Long Pascal M.D. on 06/22/2016 at 10:48
[2016-06-21 10:25] LABS: APPEARANCE,URINE HAZY (CLEAR,HAZY); COLOR,URINE YELLOW (YELLOW)
[2016-06-21 10:26] LABS: OCCULT BLOOD,URINE NEGATIVE (NEGATIVE); UROBILINOGEN,URINE NORMAL (NORMAL)
--- NOTE | 2016-06-21 10:30 | NUR ---
NUTRITION FOLLOW UP ASSESS: 61 YO m admitted to CCU for afib w/ RVR. Pt on CIWA, required intubation to protect airway on 06/17. Pt continues to be vented and sedated. Trickle TF started yesterday, and pt is tolerating w/ no residual noted. Per verbal order from MD, begin advancing TF to goal rate. Per MD, pt is 9 L positive and will begin diuresis. PMHx: Polysubstance abuse, schizoaffective disorder, hepatitis C, suicide ideation DIET: Trickle TF of Vital 1.5 @ 10 ml/hr (06/20) LABS: Reviewed. Gluc 151, Ca 8.0, Alb 2.6, Pre-Albumin 13 MEDICATIONS: Reviewed. Thiamin, Norepinephrine, Propofol @ 11.9 ml/hr providing 315 kcal/day GI: No BM noted x 6 days SKIN: Wound eval completed 06/19 - no redness or pressure areas. ANTHROPOMETRICS: Current Wt: 106.6 kg, BMI: 32.8 kg/m2, Admit weight: 98.8 kg, IBW: 78.2 kg ESTIMATED NEEDS (VENT/BMI 30-40): Calories: 2281-3507 kcal/day (20-25 kcal/kg Admit BW) Protein: 115-140 g protein (1.5-1.8 g/kg IBW) Fluids: Approx. 2500 ml (~1 ml/kcal/day) NUTRITION DIAGNOSIS: 1) Inadequate oral intake related to somnolence, respiratory distress, as evidenced by current NPO status.---PERSISTS. INTERVENTION: 1) Recommend increasing enteral feedings of Vital 1.5 by 10 ml q 6 hours to goal rate of 65 ml/hr. At goal, TF will provide 2160 kcal (TF + Propofol = 2460 kcal/day), 97 g protein; meeting 100% calorie needs and 84% protein needs. 2) Once TF at goal rate and tolerance is established, recommend adding one Prosource liquid protein packet to provide a total of 108g protein, meeting 97% of protein needs. 3) Adjust TF goal rate based on daily Propofol rate. MONITOR/EVALUATE: Vent/NPO status, nutrition support saji, labs, POC, GI/nutrition status. Follow per high nutrition risk guidelines. Addendum: 06/21/16 at [address] Student documentation reviewed and I agree with the above assessment. Sharan Fuentes, MS, RDN, CD
[2016-06-21] MEDS: Norepineph 8,000 mCg/250 mL NS 8,000 MCG in IV Premix 1 EACH IV SCH (11:12)
--- NOTE | 2016-06-21 12:41 | PCM.PNMED ---
Subjective Date of Service Jun 21, 2016 Subjective Patient is intubated and sedated. ROS and subjective not obtainable Exam Vital Signs Vital Sign - Last Date Time Temp Pulse Resp B/P Pulse Ox O2 Delivery O2 Flow Rate FiO2 06/21/16 12:08 Ventilator 06/21/16 12:08 36.8 85 16 105/77 95 30 06/17/16 15:21 8.00 Intake and Output 06/20/16 06/20/16 06/21/16 Cumulative From/Thru 15:00 23:00 07:00 06/15/16 18:05 - 06/21/16 05:24 Intake Total 1918 ml 1399 ml 1877 ml 78217 ml Output Total 700 ml 3000 ml 350 ml 8251 ml Balance 1218 ml -1601 ml 1527 ml 9086 ml Intake Oral 470 ml IV Total 1918 ml 1399 ml 1638 ml 24111 ml Tube Feeding 119 ml 119 ml Tube Irrigant 120 ml 120 ml Output Urine Total 450 ml 2800 ml 350 ml 6951 ml Gastric Drainage Total 250 ml 200 ml 1300 ml # Bowel Movements 0 0 0 0 Exam Intubated, sedated. Anicteric sclera Oropharynx with endotracheal and OG tube Neck supple peripheral lungs are clear, active and always normal sounds. Heart is irregular without murmur, rate controlled. Abdomen is distended but nontender. Extremities normal with 1+ edema good pedal pulses. No skin rash IVs and Medications Medications Reviewed: Medications were reviewed in detail Lab and Diagnostics Result Diagram: 06/21/16 0525 06/21/16 0525 X-Rays, CTs and MRIs Personally reviewed chest imaging from time of admission to today. Chest x-ray time of admission showed fluid overload consistent with new onset CHF. Chest x-ray following intubation demonstrated a right lower lobe opacity consistent with possible pneumonia/likely aspiration. Yesterday's chest x-ray demonstrated additional, worsening fluid overload. Today re-demonstrates fluid overload (however much improved) with persistent bibasilar infiltrates with what looks like bilateral layering pleural effusions. Cardiac Echo Impressions Echocardiogram this admission demonstrates an EF of 25-30% without significant valvular disease (this is markedly decreased from normal EF in February 2016) Additional Diagnostics VBG this morning: PH 7.38, PCO2 29, PO2 49.4 with a sat of 84%, bicarbonate 17. Assessment & Plan 1. Intubated for airway protection and progressive pulmonary edema. Acute hypoxic respiratory failure secondary to acute systolic heart failure. The patient has done well with diuresis yesterday we will continue diuresis in today by instituting a Lasix drip at 5 per hour. The patient's chest x-ray looks better today. His FiO2 is at 0.3 with PEEP of 5. He is currently on midazolam drip but this will be converted to Ativan when necessary boluses. He had a 30 minute pressure support trial yesterday but became quite agitated. We will continue to try to wean his sedation by decreasing his propofol after taking down his Midazolam drip. 2. Severe ETOH withdrawal, acute . POA. He had been converted from Precedex to midazolam drip with propofol for sedation. This will be converted today to Ativan when necessary boluses and we will decrease propofol. 3. Atrial flutter / fibrillation, acute on chronic. POA. The patient has been using a diltiazem drip and metoprolol when necessary IV boluses for rate control. However the diltiazem leads to hypotension and the metoprolol short lived. We will convert this to an azole LATER today when available. 4. Acute on chronic systolic heart failure. The patient has had progression of infiltrates on x-ray secondary to requiring fluid resuscitation for persistent hypotension yesterday. He is saturating well on his current vent settings. The patient is currently volume overloaded. At this point we will begin to diurese him. Start a Lasix drip today 5. Hypotension. This is multifactorial. The patient does have acute systolic heart failure based on interval echoes over about 18 months. His EF is about 25 %. The patient did wean off from norepinephrine yesterday. His hypotension has improved. He has been off pressors for 2 days. He is tolerating some diuresis as well. This has improved. 6. Suicidal ideation and attempt., acute. POA. His reported that he had taken heroin but this is unclear. It is unclear if he took any organic alcohol agents at the time of presentation. We will attempt to reevaluate his anion gap acidosis today. When he improved so we can also asking for further history. 7. Acute metabolic encephalopathy, this did follow admission. This appears to primarily related to his alcohol withdrawal syndrome. Continue to treat the core problem. 8. Acid base/anabolic disorders. He has had a persistent metabolic acidosis and respiratory alkalosis. We will check his serum and urine osmolality gap today. His lactic acid is normal today. 9. Relative hypoglycemia. We converted his fluids from normal saline to D5 half saline today and watch sugars. This has stabilized after institution of D5 half 10. Probable aspiration pneumonia. POA. We will continue Unasyn. Repeat blood cultures today. All microbiologic data has been negative so far. 1`. DVT prophylaxis with subcutaneous heparin. Pain Evaluation: Adequate Pain Control Resuscitation Status: CPR: Attempt Resuscitation Pain Evaluation: Adequate Pain Control VTE Mechanical Devices: Intermittant Pneumatic CD Resuscitation Status: CPR: Attempt Resuscitation Time spent 40 minutes Jesse Kay MD Jun 21, 2016 12:41
--- NOTE | 2016-06-21 14:15 | NUR ---
Faxed orders to Mary at [facility] in patient access she is planning on having a ICU bed open. She would like to have clinicals faxed to [phone]. Also spoke with MD and he feels patient would be stable and could go into ICU bed at [facility]. Updated [employer]
--- NOTE | 2016-06-21 16:31 | ABG ---
DateTimeAnalyzed 16:26:00 -_ pH ____7.363 - pCO2 ___41.0__ -mmHg pO2 ___39.7__ -mmHg HCO3- ___22.7__ -mmol/L ABE ___-2.0__ -mmol/L tHb ___11.8__ -g/dL O2Hb ___68.6__ -% COHb ____1.0__ -% MetHb ____1.7__ -% sO2 ___70.5__ -% FIO2 ___30.0__ -% PRVC 520 - PEEP ____5.0__ -cmH2O Set_RR ___13.0__ -b/min Vt __566.0__ -L Drawn By jmw - Date/Time Notified____ 16:30:00 -_ Spontaneous_RR ___17.0__ -b/min Notified By JMW - Notified Whom DR DE LA HOUSSAYE -___ B 764 -mmHg tO2 ___11.3__ -Vol% Jesse test N/A -
--- NOTE | 2016-06-21 18:39 | NUR ---
Social Work Note: Continued Discharge Planning Data& Assessment: Pt remains on the vent at this time. Per MD in morning rounds, pt may not be ready for extubation for another 2-3 days. SW to continue to follow for pt medically progression and follow up with pt regarding DC planning, CD and MH assessment post extubation and when appropriate. SW to continue to follow. Plan: SW to follow up with pt regarding DC planning, CD and MH assessment post extubation and when appropriate. SW to continue to follow. TAHMINA Miller
--- NOTE | 2016-06-21 18:48 | NUR ---
RESPIRATORY/HEMODYNAMICS/URINE OUTPUT Patient remains on ventilator settings of 30% FiO2/5 PEEP/520 Vt/13 Rate, and does not appear to be in respiratory distress. HR and BP controlled w/ amiodarone gtt and Metoprolol 5 mg IV pushes Q6H. Lasix gtt started at 5 mg/hr to help pull fluid off, increase urine output. HR controlled in 70s-90s for most of the shift, but steadily increased to low 100s-110s at end of shift. BP has remained stable throughout day shift. Urine output today was 2600 mL for day shift, significantly increased d/t Lasix gtt. Will continue to monitor vitals and urine output, sedation needs.
[2016-06-21] MEDS ORDERED: KCl 40 mEq/500 mL D5W(K 3 - 3.7 & Creat < 2) IV ONE (19:55)
[2016-06-22] VITALS (13 sets, daily range): BP systolic 70–122; BP diastolic 52–100; PULSE 91–115; RESP 13–17; O2SAT 94–99
[2016-06-22] MEDS: Chlorhexidine 0.12% 15 mL Oral Solution MT SCH ×6 (00:02→21:35)
[2016-06-22] MEDS: Heparin 5,000 Unit/mL Inj SUBQ SCH ×3 (00:02→16:14)
[2016-06-22] MEDS: Amiodarone 360 mg/200 mL D5W 360 MG in IV Premix 1 EACH IV SCH ×2 (01:08→13:58)
[2016-06-22] MEDS: Propofol Inj 1,000,000 MCG in IV Premix 1 EACH IV SCH ×3 (02:27→14:06)
[2016-06-22] MEDS: Ampicillin-Sulbactam Inj 1,500 MG in 0.9% Sodium Chloride 50 ML IV SCH ×4 (02:28→21:35)
[2016-06-22] MEDS: MeTOProlol 1 mg/mL 5 mL Inj IVPUSH SCH ×2 (02:28→07:43)
--- NOTE | 2016-06-22 04:15 | NUR ---
Cardiac P: HR 60-115's aflutter, lasix gtt @ 5mg/hr, amio gtt. I: given routine metoprolol 5mg IV E: Pt responds to metoprolol, HR down in the 70's post med, drew drained with large uo >2L Respiratory/Agitation P: on propofol gtt, RASS +1 at times. I: given ativan 0.5mg slow IV prn, increased propofol gtt. E: sbp mid 80's with higher propofol gtt rate, map>65, Hospitalist aware with no new order, BP improved when propofol gtt decreased. S: bilateral soft wrist restraints on.
[2016-06-22 04:28] LABS: Magnesium 1.4 mg/dL (1.6-2.6)
[2016-06-22] MEDS ORDERED: Mag Sulf 4 Gm/100 mL IV Premix (Mag < 1.6 & Creat < 2) IV ONE (04:45)
[2016-06-22] MEDS ORDERED: KCl 40 mEq/100 mL Premix (K 3 - 3.7 & Creat < 2) IV ONE (04:45)
[2016-06-22] MEDS: Famotidine Inj 20 MG in IV Premix 1 EACH IV SCH (07:43)
[2016-06-22] MEDS: Multivitamins w/Minerals 5 mL Liquid Supplement PO SCH (07:44)
--- NOTE | 2016-06-22 08:54 | ABG ---
DateTimeAnalyzed 08:49:00 -_ pH ____7.408 - pCO2 ___40.6__ -mmHg pO2 ___35.7__ -mmHg HCO3- ___25.1__ -mmol/L ABE ____0.9__ -mmol/L tHb ___12.4__ -g/dL O2Hb ___64.1__ -% COHb ____0.9__ -% MetHb ____0.9__ -% sO2 ___65.3__ -% FIO2 ___30.0__ -% Vt __520.0__ -L Drawn By nsg - Date/Time Notified____ 08:53:00 -_ Spontaneous_RR ___13.0__ -b/min Oxygen Device 1 VENTILATOR - Notified Whom [employer] - B 770 -mmHg tO2 ___.1__ -Vol% Jesse test N/A -
--- NOTE | 2016-06-22 10:09 | PCM.PNMED ---
Subjective Date of Service Jun 22, 2016 Subjective Pulmonary critical care consultation progress note: Problems: Intubated on 06/17/16 for airway protection Atrial fibrillation/flutter with RVR Alcohol withdrawal with likely contribution from polysubstance/opiate withdrawal (meth and heroin reported historically) Acute heart failure with reduced ejection fraction (25-30%; EF was normal in 2015) Chest x-ray findings of fluid overload, bilateral small pleural effusions with bibasilar airspace opacities (patient on empiric antibiotics with coverage for aspiration etiology) Anion gap metabolic acidosis with a metabolic alkalosis, and a primary respiratory alkalosis Metabolic encephalopathy History of hepatitis C (unknown if treated) Bipolar (report of suicidal ideation and history of suicide attempt) Subjective: Trickle feeds via tube were advanced with good residuals, and well- tolerated overnight. Overnight, intermittent agitation reported by nursing requiring Propofol titration as Ativan pushes when necessary were not helpful. Otherwise uneventful. Review of systems impossible to obtain given patient's status. Exam Vital Signs Vital Sign - Last Date Time Temp Pulse Resp B/P Pulse Ox O2 Delivery O2 Flow Rate FiO2 06/22/16 05:24 107 102/81 95 30 06/22/16 04:05 36.6 17 Mechanical Ventilator 06/17/16 15:21 8.00 Intake and Output 06/21/16 06/21/16 06/22/16 Cumulative From/Thru 15:00 23:00 07:00 06/15/16 18:05 - 06/22/16 06:10 Intake Total 1487 ml 2163 ml 10991 ml Output Total 2600 ml 4400 ml 94393 ml Balance -1113 ml -2237 ml 5736 ml Intake Oral 470 ml IV Total 1183 ml 1593 ml 27452 ml Tube Feeding 184 ml 420 ml 723 ml Tube Irrigant 120 ml 150 ml 390 ml Output Urine Total 2600 ml 4400 ml 35779 ml Gastric Drainage Total 1300 ml # Bowel Movements 0 0 0 Exam Gen.: Obese gentleman lying in ICU bed, sedated and intubated, diaphoretic, and does not appear to be in acute distress. HEENT: Normocephalic, pupils equal and reactive to light bilaterally, mucous membranes moist. Chest: Somewhat coarse throughout the anterior and lateral antoine. Cardiovascular: tachycardic with irregularly irregular rhythm consistent with atrial flutter noted on monitor. I do not appreciate a murmur today. Radial pulses are 2+ bilaterally. Abdomen: Soft, bowel tones present, I do not appreciate any hepatosplenomegaly or other masses. Extremities: Mild nonpitting edema noted in the lower extremities and upper extremities. Left-sided PICC line with clean dressing and no surrounding erythema. UOP yesterday 2950, today so far 4400 recorded. His overall fluid balance this admission is +5L. Lines: Left upper extremity PICC line, Valdes IVs and Medications IV Fluids D5NS running at 50 mL per hour Medications Reviewed: Medications were reviewed in detail Medications Amiodarone drip at 0.5 mg/h Propofol at 30 mcg/kg/h Tube feeds at 40 mL per hour Lab and Diagnostics CBC with differential and platelets today are largely the same as yesterday Sodium 145, potassium 3.8, chloride 106, bicarbonate 23, when necessary 13, creatinine 1.11, glucose 140, calcium 8.1 (corrects to 9). Albumin is 2.8 AG is approximately 19. Delta/delta is approximately 8 Magnesium is 1.4 (replacement ordered by filter tip inspector) Micro: Blood, sputum cultures negative to date. Repeat sputum sample was sent on 06/20/16 given changes in sputum consistency and color: Gram stain: moderate polys, and no organisms. Preliminary culture: Scant staph species. MRSA nasal screen negative. Result Diagram: 06/21/16 0525 06/22/16 0330 X-Rays, CTs and MRIs Personally reviewed chest imaging from time of admission to today. Chest x-ray time of admission showed fluid overload consistent with new onset CHF. Chest x-ray following intubation demonstrated a right lower lobe opacity consistent with possible pneumonia/likely aspiration. Yesterday's chest x-ray demonstrated additional, worsening fluid overload. Today re-demonstrates fluid overload (however much improved) with persistent bibasilar infiltrates with what looks like bilateral layering pleural effusions. Cardiac Echo Impressions Echocardiogram this admission demonstrates an EF of 25-30% without significant valvular disease (this is markedly decreased from normal EF in February 2016) Additional Diagnostics VBG this morning: pH ____7.408 - pCO2 ___40.6__ -mmHg pO2 ___35.7__ -mmHg HCO3- ___25.1__ -mmol/L sO2 ___65.3__ -% Assessment & Plan 1. Intubated on 06/17/16 to protect airway during management of substance withdrawal (as noted in detail below)-current vent settings FiO2 0.3, PEEP of 5 , respiratory rate 13, tidal volume 520 mL. Peak and plateau pressures are 23/ 18. He has basically been riding the vent through the night. I am certain that he is trying to compensate for his iatrogenic metabolic alkalosis, but unable to do so given the vent settings. For today, we will stop the Lasix drip (this was initiated given his overall fluid overload in the setting of acute systolic heart failure), and continue maintenance fluids with consideration for increasing the rate of his IV fluids to correct his alkalemia. With that in mind, we will hold off on any spontaneous breathing trial for today (as he would likely become hypopneic or apneic), and continue to optimize sedation with daily vacations. 2. Atrial fibrillation/flutter with RVR-patient currently on an amiodarone drip , and metoprolol IV pushes. Cardiology has become involved and recommend continuing with amiodarone drip and metoprolol pushes. He is currently rate controlled. 3. Alcohol withdrawal with likely contribution from polysubstance/opiate withdrawal (heroin and methamphetamine reported historically)-currently being monitored on CIID protocol and sedated with propofol drip. We stop the diazepam drip yesterday and added Ativan IV pushes every 4 hours as needed, but as noted in subjective above these were not effective overnight. Propofol is subsequently been titrated up. Given his ongoing diaphoresis in the absence of measured fever, we will add fentanyl drip at a low dose to account for the possibility of narcotic withdrawal. Given his metabolic encephalopathy and unresponsiveness (coupled with his agitation and observed distress when sedation is weaned), there is consideration for EEG (as a status epilepticus in this gentleman is a possibility). 4. Acute heart failure with reduced ejection fraction (25-30%; EF was normal in 02/2016)-does not appear to be ischemic in nature as all troponins have been negative. There is also no indication on echocardiogram of a dilated etiology making alcohol less likely. IV cardiac medications as noted above in #2, and we will stop diuresis due to metabolic alkalosis. Cardiology consulted by primary team. Would be prudent to perform limited echo prior to discharge to assess EF. 5. Chest x-ray findings of fluid overload and bilateral small pleural effusions with bibasilar airspace opacities (patient on empiric antibiotics with Unasyn)-significant diuresis was performed yesterday with a Lasix ggt. Unfortunately, this has caused significant contraction alkalosis overnight. Will continue his IVF with D5NS at 50 mL per hour. Strong clinical suspicion that this is not community-acquired pneumonia. Question some degree of aspiration given the initial findings in the right lower lobe following intubation. Is on Unasyn currently to account for this possible anaerobic coverage. Pro-calcitonin are negative 2 which would demonstrate some likelihood that he is not infected, and the findings on chest x -ray are consistent with a possible aspiration pneumonitis on top of his already known of fluid overload. However, 06/20/16 sputum changes were noted with routine suctioning (color and consistency changes without fever). Analysis of that sputum is demonstrated a Gram stain with multiple polys but no organisms, and preliminary culture showing staph species yet to be identified. Blood and urine cultures negative to date Please note that the patient has a reported history of hepatitis C (unknown if ever treated). 6. Anion gap metabolic acidosis (with a gap of 19 today) with a primary metabolic alkalosis (contraction-iatrogenic, secondary to diuresis), and a primary respiratory alkalosis-Unclear as to the source of his metabolic acidosis. We have investigated the possibility of an elevated anion gap without acidemia (but his total protein, lipid panel, and serum glucose are not consistent with this). There is certainly the possibility of an unmeasured anion potentially from the methamphetamine and/or heroin that he took prior to admission (there is certainly potential that these drugs were "cut" with a substance that we are not able to measure on our routine labs). Alcoholic ketosis is less likely as the urine ketones were negative. Ingestions would certainly be a concern in this gentleman. No urinary crystals were noted on the UA, and the measured to calculated serum osmolality did not demonstrate a gap. Salicylate and acetaminophen levels were negative. It should also be noted that the lactate level has been in normal limits throughout hospitalization. His alkalemia is secondary to contraction in the setting of significant diuresis. Has stopped Lasix drip, and will continue his maintenance fluids as noted above. He is also currently receiving replacement of his potassium and magnesium. 7. Metabolic encephalopathy-likely related to withdrawal in the setting of chronic underlying psychiatric disorders, with the possibility of contribution from his significant reduction in LVEF. Ammonia level is low. Other considerations (such as EEG) as noted above. 8. Acute kidney injury (somewhat worse today secondary to significant diuresis) -baseline creatinine closer to 0.8, or 0.9. Recommendations: -Stop Lasix -Continue maintenance D5NS at 50 mL per hour -We will add fentanyl drip at low dose of 25 g per hour -We will hold off on spontaneous breathing trial for today, but consideration for continuing to wean sedation as much as possible -Atrial fibrillation/flutter with RVR and acute heart failure to be managed by primary team with cardiology. -Pending multiple culture analysis. Continue Unasyn for now. ?broadening. -Consideration in the near future for possible EEG and/or CT scan of the head should mentation not improve as assessed by sedation vacations once more stable. -As he has not had a bowel movement during this admission, would recommend adding stool regimen CODE STATUS: Full code DVT prophylaxis with subcutaneous heparin GI prophylaxis with famotidine Nutrition: Has been tolerating tube feeds at 40 ml per hour via his OGT rather well overnight. Will continue advancing tube feeds as tolerated to goal (per recommendation by dietitian). Critical care time spent on this patient's case: 30 minutes Attending Statement The patient was seen and examined together with Dr. Berry on 06/22/2016 and I agree with the history, exam and plan as outlined in the note above. Manny Berry DO Jun 22, 2016 07:04 Alvarado Trejo MD Jul 09, 2016 13:14
--- NOTE | 2016-06-22 11:10 | NUR ---
NUTRITION FOLLOW UP ASSESS: 61 YO m admitted to CCU for afib w/ RVR. Pt on CIWA, required intubation to protect airway on 06/17. Pt continues to be vented and sedated. TF advanced to 40 ml/hr, and is tolerating w/ minimal residual. Will continue to increase towards goal today. Noted a drop in Mg that is being repleted. Per MD, pt remains slightly fluid positive. PMHx: Polysubstance abuse, schizoaffective disorder, hepatitis C, suicide ideation DIET: TF of Vital 1.5 advancing to goal @ 40 ml/hr LABS: Reviewed. Na 145, Gluc 140, Ca 8.1, Mg 1.4, Alb 2.8 MEDICATIONS: Reviewed. Folic Acid, MVI, Thiamin, Propofol @ 11.9 ml/hr providing 315 kcal/day GI: No BM noted x 7 days SKIN: Wound eval completed 06/19 - no redness or pressure areas. ANTHROPOMETRICS: Current Wt: 101.1 kg, BMI: 31.1 kg/m2, Admit weight: 98.8 kg (Admit BMI 30.4 kg/m2), IBW: 78.2 kg ESTIMATED NEEDS (Re-evaluated 06/22): Calories: 2579-4312 kcal/day (20-22 kcal/kg Admit BW) Protein: 95-115 g protein (1.2-1.5 g/kg IBW) Fluids: Approx. 2000 ml (~1 ml/kcal/day) NUTRITION DIAGNOSIS: 1) Inadequate oral intake related to somnolence, respiratory distress, as evidenced by current NPO status.--- IMPROVING. TF advancing to goal rate. INTERVENTION: 1) Recommend decreasing enteral feedings of Vital 1.5 to goal rate of 55 ml/hr. At goal, TF will provide 1815 kcal (TF + Propofol = 2130 kcal/day), 82 g protein; meeting 100% calorie needs and 86% protein needs. Flush 30 q 4 hrs for a total of 1,104 ml free fluid a day. 2) Once TF at goal rate and tolerance is established, recommend adding one Prosource liquid protein packet BID to provide a total of 104g protein, meeting 100% of protein needs. 3) Adjust TF goal rate based on daily Propofol rate. MONITOR/EVALUATE: Vent/NPO status, nutrition support saji, labs, POC, GI/nutrition status. Follow per high nutrition risk guidelines. Addendum: 06/22/16 at [address] Student documentation reviewed and I agree with the above assessment. Sharan Fuentes, MS, RDN, CD
[2016-06-22] MEDS: fentaNYL 2,500 mCg/250 mL 2,500 MCG in IV Premix 1 EACH IV SCH (11:30)
--- NOTE | 2016-06-22 14:07 | DRSVH ---
PROCEDURE: X-RAY CHEST ONE VIEW, PORTABLE ([id number]) INDICATIONS: f/u fluid overload and persistent basilar infil TECHNIQUE: One view of the chest was acquired. COMPARISON: [facility], CR, XR CHEST 1VW (PORTABLE), 06/21/2016, 7:12. FINDINGS: Surgical changes and devices: Stable position ETT, nasogastric tube and left PICC. Lungs and pleura: Mild edema persists and there has been interval increase in airspace opacity within the right lung base and no change within consolidation involving the left lung base. Small pleural effusions. No pneumothorax. Mediastinum: Mediastinal contours appear normal. Heart size is enlarged. Bones and chest wall: No suspicious bony lesions. Overlying soft tissues appear unremarkable. IMPRESSION: Pulmonary edema and/or bibasilar pneumonia slightly decreased involving the right lung ba se. Dictated by: Jean Carlos Stephens [facility] Interpreted: Afsaneh Badillo MD on 06/22/2016 at 14:06 Transcribed by: ARUN on 06/22/2016 at 14:07 Approved by: Afsaneh Badillo MD, PhD on 06/22/2016 at 17:27
[2016-06-22] MEDS ORDERED: LORazepam 100 mg/100 mL NS 100 MG in IV Premix 100 EACH IV SCH (15:28)
--- NOTE | 2016-06-22 15:33 | PCM.PNCARD ---
Subjective Date of service Jun 22, 2016 Chief Complaint Newly diagnosed LV systolic dysfunction by echocardiogram History of Present Illness No acute events over the night. The patient has tolerated IV amiodarone. His heart rate has been fairly rate control. Given this is a patient with severely reduced ejection fraction most likely related to stress and polysubstance abuse. The patient has been started on low-dose beta blockers and Tj inhibitors. Hemodynamically he appears be tolerating these medications well. Subjective: Unable to obtain Exam Vital Signs Vital Sign - Last Date Time Temp Pulse Resp B/P Pulse Ox O2 Delivery O2 Flow Rate FiO2 06/22/16 12:21 37.0 99 15 102/77 95 Mechanical Ventilator 30 06/17/16 15:21 8.00 Intake and Output 06/21/16 06/21/16 06/22/16 Cumulative From/Thru 15:00 23:00 07:00 06/15/16 18:05 - 06/22/16 06:10 Intake Total 1487 ml 2163 ml 15034 ml Output Total 2600 ml 4400 ml 59475 ml Balance -1113 ml -2237 ml 5736 ml Intake Oral 470 ml IV Total 1183 ml 1593 ml 67746 ml Tube Feeding 184 ml 420 ml 723 ml Tube Irrigant 120 ml 150 ml 390 ml Output Urine Total 2600 ml 4400 ml 06970 ml Gastric Drainage Total 1300 ml # Bowel Movements 0 0 0 Skin: Warm & dry to touch Head: Normocephalic Chest: Rhonchi Cardiac: Irregularly irregular rhythm Abdomen: Soft, non-distended, non-tender Extremities: Warm Lab and Diagnostics Result Diagram: 06/21/16 0525 06/22/16 0900 Assessment & Plan Problems: (1) Acute systolic (congestive) heart failure Plan: We have slowly started him on TJ inhibitor some beta blockers since his blood pressure has maintained a pretty good mean arterial pressure. I would still continue with intravenous amiodarone for now. Patient was on Lasix infusion for volume overload and he responded quite well but developed contraction metabolic alkalosis. Currently his Lasix infusion is on hold. Chest x-ray shows improvement in comparison to yesterday. Status: Acute ICD Code: I50.21 (2) Atrial fibrillation with RVR Plan: Patient continues to have atrial fibrillation but his rate is better controlled with amiodarone. I will continue with amiodarone infusion for now but start low-dose beta suki and tj inhibitors today. I suspect that once everything has settled down, he should spontaneously cardioverted back into sinus rhythm. For now just continue with full dose aspirin for prevention of cardiac embolic stroke. Status: Acute ICD Code: I48.91 (3) Atrial flutter Qualifiers: Atrial flutter type: typical Qualified Code: I48.3 - Typical atrial flutter Status: Acute ICD Code: I48.92 (4) Alcohol intoxication Qualifiers: Complication of substance-induced condition: with delirium Qualified Code: F10.121 - Alcohol abuse with intoxication delirium Status: Resolved ICD Code: F10.129 Pain Evaluation: Adequate Pain Control VTE Mechanical Devices: Intermittant Pneumatic CD Resuscitation Status: CPR: Attempt Resuscitation Time spent Critical care time 30 minutes. Gabriel Hurd MD Jun 22, 2016 15:33
[2016-06-22] MEDS: LORazepam 100 mg/100 mL Drip IV SCH ×2 (16:13)
[2016-06-22 17:41] LABS: Phosphorus 3.6 mg/dL (2.5-4.9)
--- NOTE | 2016-06-22 18:39 | NUR ---
AGITATION/SEDATION Propofol weaned slowly throughout shift, but patient became increasingly agitated. Sedation medications changed, Propofol turned off, w/ Fentanyl and Ativan gtt added for sedation. Fentanyl started at 25 mcg/hr, which was eventually increased to 50 mcg/hr, and Ativan gtt started at 0.5 mg/hr, which is current infusion rate. Patient has tolerated this for most of the shift, w/ occasional low BPs, resolved w/ 250 mL bolus. Will continue to monitor RASS and adjust sedation medications as needed, but will attempt to keep Propofol gtt off throughout the night.
[2016-06-22] MEDS: Norepinephrine 8,000 mCg/250 mL D5W Premix IV SCH (19:30)
--- NOTE | 2016-06-22 20:20 | PCM.PNMED ---
Subjective Date of Service Jun 22, 2016 Subjective Patient unresponsive sedated on ventilator Exam Vital Signs Vital Sign - Last Date Time Temp Pulse Resp B/P Pulse Ox O2 Delivery O2 Flow Rate FiO2 06/22/16 17:54 100 91/68 96 30 06/22/16 16:30 Ventilator 06/22/16 16:30 36.9 13 06/17/16 15:21 8.00 Intake and Output 06/21/16 06/21/16 06/22/16 Cumulative From/Thru 15:00 23:00 07:00 06/15/16 18:05 - 06/22/16 06:10 Intake Total 1487 ml 2163 ml 90320 ml Output Total 2600 ml 4400 ml 09665 ml Balance -1113 ml -2237 ml 5736 ml Intake Oral 470 ml IV Total 1183 ml 1593 ml 75088 ml Tube Feeding 184 ml 420 ml 723 ml Tube Irrigant 120 ml 150 ml 390 ml Output Urine Total 2600 ml 4400 ml 13603 ml Gastric Drainage Total 1300 ml # Bowel Movements 0 0 0 Exam Gen.-Thin male unconscious Eyes-eyes closed, normal lids, no discharge Mouth-intubated ENT- ears normal, nose normal Neck- supple/trach midline CVS- RRR no murmur or gallop Lungs CTA ventilator sounds GI- NABS/NT soft Musc-flaccid 4 no obvious deformity Neuro- cranial nerves II through XII intact to gross examination, nonfocal Skin- warm and dry, no rashes/lesions/wounds noted Psych-unconscious Lab and Diagnostics Result Diagram: 06/21/16 0525 06/22/16 1710 X-Rays, CTs and MRIs CXR IMPRESSION: Pulmonary edema and/or bibasilar pneumonia slightly decreased involving the right lung base. 06/22 Cardiac Echo Impressions Echocardiogram this admission demonstrates an EF of 25-30% without significant valvular disease (this is markedly decreased from normal EF in February 2016) Additional Diagnostics VBG this morning: pH ____7.408 - pCO2 ___40.6__ -mmHg pO2 ___35.7__ -mmHg HCO3- ___25.1__ -mmol/L sO2 ___65.3__ -% Assessment & Plan 61-year-old male 119 admitted suicide attempt. History of alcohol and polysubstance use. Acute respiratory failure -Intubated for airway protection and progressive pulmonary edema. acute systolic heart failure. The patient has doid well with diuresis yesterday we will continue diuresis 06/20-06/21 chest x-ray improved. Reportedly weaning fall/bursa in lieu of using fentanyl which may also treat her cardiac withdrawal and pain/irritation Severe ETOH withdrawal, acute . POA.- Appears where using arouse him when necessary. Atrial flutter / fibrillation, acute on chronic. POA.diltiazem drip and metoprolol when necessary IV boluses for rate control. -06/21, amiodarone drip started 06/21 cardiology consult 06/21 Hypotension. This is multifactorial. The patient does have acute systolic heart failure based on interval echoes over about 18 months. His EF is about 25 %. The patient did wean off from norepinephrine yesterday. His hypotension has improved. Suicidal ideation and attempt., acute. POA. His reported that he had taken heroin but this is unclear. It is unclear if he took any organic alcohol agents at the time of presentation. We will attempt to reevaluate his anion gap acidosis today. When he improved so we can also asking for further history. Will address when patient weaned off fentanyl/sedatives Acute metabolic encephalopathy, multifactorial will reevaluate when patient is weaned off of ventilator/sedating medications Acid base/anabolic disorders. He has had a persistent metabolic acidosis and respiratory alkalosis. We will check his serum and urine osmolality gap today. His lactic acid is normal today. hypoglycemia. BS [id number] 06/22 current regimen no changes Probable aspiration pneumonia. POA. We will continue Unasyn 06/19- 06/24 atleast (5 days). Repeat blood cultures today. All microbiologic data has been negative so far 06/22 1`. DVT prophylaxis with subcutaneous heparin. Pain Evaluation: Adequate Pain Control Resuscitation Status: CPR: Attempt Resuscitation Pain Evaluation: Adequate Pain Control VTE Mechanical Devices: Intermittant Pneumatic CD Resuscitation Status: CPR: Attempt Resuscitation Medically complex patient high-risk for complications when just meeting today VTE Mechanical Devices: Intermittant Pneumatic CD Resuscitation Status: CPR: Attempt Resuscitation Nagi Yap MD Jun 22, 2016 20:20
[2016-06-22] MEDS ORDERED: 0.9% Sodium Chloride 500 ML ONE (21:38)
[2016-06-22] MEDS: Dextrose 5% 0.45% NaCl 1,000 ML IV SCH (21:43)
[2016-06-23] VITALS (12 sets, daily range): BP systolic 70–122; BP diastolic 52–94; PULSE 72–109; RESP 13–14; O2SAT 96–100
[2016-06-23] MEDS: Chlorhexidine 0.12% 15 mL Oral Solution MT SCH ×6 (01:01→20:49)
[2016-06-23] MEDS: Heparin 5,000 Unit/mL Inj SUBQ SCH ×3 (01:01→16:30)
[2016-06-23] MEDS: Amiodarone 360 mg/200 mL D5W 360 MG in IV Premix 1 EACH IV SCH ×3 (01:04→23:37)
[2016-06-23] MEDS: Ampicillin-Sulbactam Inj 1,500 MG in 0.9% Sodium Chloride 50 ML IV SCH ×3 (02:15→14:14)
[2016-06-23] MEDS: Propofol Inj 1,000,000 MCG in IV Premix 1 EACH IV SCH ×2 (05:11→11:32)
--- NOTE | 2016-06-23 05:29 | NUR ---
BP/Neuro Pt BP hypotensive throughout night. Originally treated with 1.5L bolus (250-500cc bolus' at a time) which helped for about 30 minutes and started to decrease again. At 1.5L switched to Levophed gtt with minimal titration needed (0.025-0.05mcg/kg/min). BP stable with current regimen. At one point had all sedation/pain medication turned off. Pt did wake up and respond to very minimal commands (can you turn your head toward my voice and open eyes). Seemingly responsive to daughter in the room, but anxious when awake and alone. Sedation restarted to minimal levels. Will continue to monitor. Care ongoing
--- NOTE | 2016-06-23 05:56 | ABG ---
DateTimeAnalyzed 05:51:00 -_ pH ____7.404 - pCO2 ___48.6__ -mmHg pO2 ___42.1__ -mmHg HCO3- ___29.8__ -mmol/L ABE ____4.6__ -mmol/L tHb ___13.6__ -g/dL O2Hb ___73.2__ -% COHb ____0.9__ -% MetHb ____0.9__ -% sO2 ___74.5__ -% FIO2 ___30.0__ -% PRVC 582 - PEEP ____5.0__ -cmH2O Set_RR ___13.0__ -b/min Vt __520.0__ -L Drawn By RB - Date/Time Notified____ 05:55:00 -_ Spontaneous_RR ___13.0__ -b/min Oxygen Device 1 VENTILATOR - Notified Whom RN - B 772 -mmHg tO2 ___14.0__ -Vol% Jesse test N/A -
[2016-06-23 06:30] LABS: BASOPHILS % (AUTO) 0.5 % (0-3); EOSINOPHILS % (AUTO) 8.1 % (0-5); MONOCYTES % (AUTO) 13.4 % (4-12); Mean Corpuscular Hemoglobin 31.8 pg (27.0-35.0); NEUTROPHILS % (AUTO) 52.2 % (40-74); Platelet Count 240 bil/L (150-400)
[2016-06-23 06:35] LABS: Phosphorus 3.6 mg/dL (2.5-4.9)
[2016-06-23] MEDS: Dextrose 5% 0.45% NaCl 1,000 ML IV SCH (06:53)
--- NOTE | 2016-06-23 07:58 | PCM.PNMED ---
Subjective Date of Service Jun 23, 2016 Subjective Patient intubated and nonverbal Exam Vital Signs Vital Sign - Last Date Time Temp Pulse Resp B/P Pulse Ox O2 Delivery O2 Flow Rate FiO2 06/23/16 07:38 36.7 90 13 102/84 100 Mechanical Ventilator 30 06/17/16 15:21 8.00 Intake and Output 06/22/16 06/22/16 06/23/16 Cumulative From/Thru 15:00 23:00 07:00 06/15/16 18:05 - 06/23/16 05:16 Intake Total 1678 ml 2542 ml 77194 ml Output Total 1000 ml 250 ml 12069 ml Balance 678 ml 2292 ml 8706 ml Intake Oral 470 ml IV Total 1120 ml 2099 ml 48857 ml Tube Feeding 503 ml 413 ml 1639 ml Tube Irrigant 55 ml 30 ml 475 ml Output Urine Total 1000 ml 250 ml 08421 ml Gastric Drainage Total 1300 ml # Bowel Movements 0 0 0 Lab and Diagnostics 06/23 unclear vent settings. Currently at 30% hopefully this is a been increased to this level after this gases obtained this patient is hypoxemic. pH ____7.404 - pCO2 ___48.6__ -mmHg pO2 ___42.1__ -mmHg HCO3- ___29.8__ -mmol/L ABE ____4.6__ -mmol/L Result Diagram: 06/23/16 0550 06/23/16 0550 Microbiology 2 blood -1 of 2 sputum positive for staph 06/20 X-Rays, CTs and MRIs CT Head IMPRESSION: No acute intracranial disease process.06/23 CXR IMPRESSION: Pulmonary edema and/or bibasilar pneumonia slightly decreased involving the right lung base. 06/22 Cardiac Echo Impressions Echocardiogram this admission demonstrates an EF of 25-30% without significant valvular disease (this is markedly decreased from normal EF in February 2016) Additional Diagnostics VBG this morning: pH ____7.408 - pCO2 ___40.6__ -mmHg pO2 ___35.7__ -mmHg HCO3- ___25.1__ -mmol/L sO2 ___65.3__ -% Assessment & Plan 61-year-old male 119 admitted suicide attempt. History of alcohol and polysubstance use. Acute respiratory failure -Intubated for airway protection and progressive pulmonary edema. Patient is successfully diuresed and may be nearing extubation acute systolic heart failure. The patient has doid well with diuresis yesterday we will continue diuresis 06/20-06/21 chest x-ray improved. Reportedly weaning fall/bursa in lieu of using fentanyl which may also treat her cardiac withdrawal and pain/irritation. Patient was about 6 kg greater than his admission weight 06/21, down to 102 kg 2 kg greater than admission weight 06/23. Severe ETOH withdrawal, acute . POA.- Appears where using arouse him when necessary. Atrial flutter / fibrillation, acute on chronic. POA.diltiazem drip and metoprolol when necessary IV boluses for rate control. -06/21, amiodarone drip started 06/21 cardiology consult 06/21 Hypotension. This is multifactorial. The patient does have acute systolic heart failure based on interval echoes over about 18 months. His EF is about 25 %. Patient intermittently on pressors, recommend holding cardiac medications still pressors are not needed to maintain pressure/MAP>70 Suicidal ideation and attempt., acute. POA. His reported that he had taken heroin but this is unclear. It is unclear if he took any organic alcohol agents at the time of presentation. We will attempt to reevaluate his anion gap acidosis today. When he improved so we can also asking for further history. Will address when patient weaned off fentanyl/sedatives Acute metabolic encephalopathy, multifactorial will reevaluate when patient is weaned off of ventilator/sedating medications Acid base/anabolic disorders. He has had a persistent metabolic acidosis and respiratory alkalosis. We will check his serum and urine osmolality gap today. His lactic acid is normal today. hypoglycemia. BS [id number] 06/22 current regimen no changes Probable aspiration pneumonia. POA. We will continue Unasyn 06/19- 06/24 atleast (5 days). Repeat blood cultures today. All microbiologic data has been negative so far 06/22 1`. DVT prophylaxis with subcutaneous heparin. Pain Evaluation: Adequate Pain Control Resuscitation Status: CPR: Attempt Resuscitation Pain Evaluation: Adequate Pain Control VTE Mechanical Devices: Intermittant Pneumatic CD Resuscitation Status: CPR: Attempt Resuscitation Medically complex patient high-risk for complications VTE Mechanical Devices: Intermittant Pneumatic CD Resuscitation Status: CPR: Attempt Resuscitation Nagi Yap MD Jun 23, 2016 07:58
--- NOTE | 2016-06-23 08:03 | PCM.PNMED ---
Subjective Date of Service Jun 23, 2016 Subjective Pulmonary critical care consultation progress note: Problems: Intubated on 06/17/16 for airway protection Atrial fibrillation/flutter with RVR Alcohol withdrawal with likely contribution from polysubstance/opiate withdrawal (meth and heroin reported historically) Acute heart failure with reduced ejection fraction (25-30%; EF was normal in 2015) Chest x-ray findings of fluid overload, bilateral small pleural effusions with bibasilar airspace opacities (patient on empiric antibiotics with coverage for aspiration etiology) Anion gap metabolic acidosis with a metabolic alkalosis, and a primary respiratory alkalosis Metabolic encephalopathy History of hepatitis C (unknown if treated) Bipolar (report of suicidal ideation and history of suicide attempt) Subjective: Hypotension overnight which responded only temporarily to fluid bolus (total of 1.5 L). He was subsequently started on low-dose levophed which continues at this time. At one point during the night SEDATION meds were off, and nursing reports he was minimally responsive and obeying commands somewhat ( turning head toward voice, opening eyes). Today I find him somewhat restless in bed with one leg hanging off and pulling of restraints. He does somewhat open his eyes to voice, but not obeying any other commands. Review of systems impossible to obtain given patient's status. Exam Vital Signs Vital Sign - Last Date Time Temp Pulse Resp B/P Pulse Ox O2 Delivery O2 Flow Rate FiO2 06/23/16 07:38 36.7 90 13 102/84 100 Mechanical Ventilator 30 06/17/16 15:21 8.00 Intake and Output 06/22/16 06/22/16 06/23/16 Cumulative From/Thru 15:00 23:00 07:00 06/15/16 18:05 - 06/23/16 05:16 Intake Total 1678 ml 2542 ml 22541 ml Output Total 1000 ml 250 ml 42477 ml Balance 678 ml 2292 ml 8706 ml Intake Oral 470 ml IV Total 1120 ml 2099 ml 02719 ml Tube Feeding 503 ml 413 ml 1639 ml Tube Irrigant 55 ml 30 ml 475 ml Output Urine Total 1000 ml 250 ml 87572 ml Gastric Drainage Total 1300 ml # Bowel Movements 0 0 0 Exam Gen.: Obese gentleman lying in ICU bed, sedated and intubated, appears restless as detailed in subjective. HEENT: Normocephalic, pupils equal and reactive to light bilaterally, mucous membranes moist. Chest: Somewhat coarse throughout the anterior and lateral antoine bilaterally. Cardiovascular: Heart rate in the 80s to 90s with irregularly irregular rhythm consistent with atrial flutter noted on monitor. I do not appreciate a murmur today. Radial pulses are 2+ bilaterally. Abdomen: Soft, bowel tones present, I do not appreciate any hepatosplenomegaly or other masses. Extremities: Mild nonpitting edema noted in the lower extremities and upper extremities. Left-sided PICC line with clean dressing and no surrounding erythema. Neuro: Does grimace and oral cares , but no other response to pain stimuli. UOP yesterday 5400, today so far 250 recorded. His overall fluid balance this admission is +8.7L. Lines: Left upper extremity PICC line, Valdes IVs and Medications IV Fluids D5NS running at 50 mL per hour Medications Reviewed: Medications were reviewed in detail Medications Amiodarone drip at 0.5 mg/h Propofol at 10 mcg/kg/h Fentanyl at 25 g per hour Norepinephrine at 0.05 mcg/kg/h Tube feeds at 40 mL per hour, but seems somewhat increased residuals. Lab and Diagnostics Polys of 52%, monos 13.4%, eosinophils 8.1% calcium 8.1 (corrects to 9.1). Albumin is 2.7 AG is approximately 9. Magnesium is 2.0 Phosphorus is 3.6 LFTs look good Micro: Blood, sputum cultures negative to date. Repeat sputum sample was sent on 06/20/16 given changes in sputum consistency and color: Gram stain: moderate polys, and no organisms. Preliminary culture: Scant staph species. MRSA nasal screen negative. Result Diagram: 06/23/16 0550 06/23/16 0550 X-Rays, CTs and MRIs No repeat chest x-ray today Additional Diagnostics VBG this morning: PH 7.4, PCO2 48.6, PO2 42 with a sat of 75%, bicarbonate 30 Assessment & Plan 1. Intubated on 06/17/16 to protect airway during management of substance withdrawal (as noted in detail below)-He has basically been riding the vent through the night except for intermittent periods of agitation at which time he will overbreathe. We will continue sedation as is (please note that the Ativan drip started last night was stopped given his pressures overnight), and await pending noncontrast CT of the brain and EEG. With that in mind, we will hold off on any spontaneous breathing trial for now (as he would likely become hypopneic or apneic), and continue to optimize sedation with daily vacations. 2. Atrial fibrillation/flutter with RVR-patient currently on an amiodarone drip , and cardiology added carvedilol and lisinopril yesterday. Cardiology recommend continuing with amiodarone drip. He is currently rate controlled. 3. Alcohol withdrawal with likely contribution from polysubstance/opiate withdrawal (heroin and methamphetamine reported historically)-currently being monitored on CIWA protocol and sedated/treated with propofol drip, fentanyl drip. Given his metabolic encephalopathy and unresponsiveness (coupled with his agitation and observed distress when sedation is weaned), we will proceed with EEG (as a status epilepticus in this gentleman is a possibility) and noncontrast CT of the head today. 4. Acute heart failure with reduced ejection fraction (25-30%; EF was normal in 02/2016)-does not appear to be ischemic in nature as all troponins have been negative. IV cardiac medications as noted above in #2, and we will defer further diuresis to primary team and cardiology. Would be prudent to perform limited echo prior to discharge to assess EF. 5. Chest x-ray findings of fluid overload and bilateral small pleural effusions with bibasilar airspace opacities (patient on empiric antibiotics with Unasyn and today is day 5)-continues on IV D5NS at 50 mL per hour. Is on Unasyn currently to account for possible anaerobic coverage (given possibility of aspiration at time of intubation. Pro-calcitonin are negative 2 which would demonstrate some likelihood that he is not infected, and the findings on chest x-ray are consistent with a possible aspiration pneumonitis on top of his already known of fluid overload. However, 06/20/16 sputum changes were noted with routine suctioning (color and consistency changes without fever) . Analysis of that sputum is demonstrated a Gram stain with multiple polys but no organisms, and preliminary culture showing staph species yet to be identified. Blood and urine cultures negative to date. Consideration could be given for stopping Unasyn today (day 5). However, there is also consideration for inappropriate/insufficient coverage given this staph species in the sputum. Please note that the patient has a reported history of hepatitis C (unknown if ever treated). 6. Anion gap metabolic acidosis (resolved) with a primary metabolic alkalosis ( contraction-iatrogenic, secondary to diuresis), and a compensatory respiratory acidosis.- We have investigated the possibility of an elevated anion gap without acidemia (but his total protein, lipid panel, and serum glucose are not consistent with this). There is certainly the possibility of an unmeasured anion potentially from the methamphetamine and/or heroin that he took prior to admission (there is certainly potential that these drugs were "cut" with a substance that we are not able to measure on our routine labs). Alcoholic ketosis is less likely as the urine ketones were negative. Ingestions would certainly be a concern in this gentleman. No urinary crystals were noted on the UA, and the measured to calculated serum osmolality did not demonstrate a gap. Salicylate and acetaminophen levels were negative. It should also be noted that the lactate level has been in normal limits throughout hospitalization. His alkalemia is secondary to contraction in the setting of significant diuresis. We will continue to hold off on Lasix drip for today, and will continue his maintenance fluids as noted above. 7. Metabolic encephalopathy-likely related to withdrawal in the setting of chronic underlying psychiatric disorders, with the possibility of contribution from his significant reduction in LVEF. Ammonia level is low. Other considerations (such as EEG and CT brain) as noted above. 8. Acute kidney injury (improved today)-baseline creatinine closer to 0.8, or 0.9. Recommendations: -We will stop Unasyn after afternoon dose today. -Defer further decisions regarding diuresis to primary and cardiology. -We will hold off on spontaneous breathing trial for today, but consideration for continuing to wean sedation as much as possible (especially as CT and EEG results come back) -Atrial fibrillation/flutter with RVR and acute heart failure to be managed by primary team with cardiology. -As he has not had a bowel movement during this admission, would recommend adding stool regimen CODE STATUS: Full code DVT prophylaxis with subcutaneous heparin GI prophylaxis with famotidine Nutrition: Tolerating tube feeds at 55 ml per hour via his OGT (goal). Critical care time spent on this patient's case: 30 minutes Attending Statement The patient was seen and examined together with Dr. Berry on 06/23/2016 and I agree with the history, exam and plan as outlined in the note above Manny Berry DO Jun 23, 2016 08:03 Alvarado Trejo MD Jul 09, 2016 13:26 de Manny Jimenez DO Jun 23, 2016 08:03 CODE STATUS: Full code DVT prophylaxis with subcutaneous heparin GI prophylaxis with famotidine Nutrition: Has been tolerating tube feeds at 40 ml per hour via his OGT rather well overnight. Will continue advancing tube feeds as tolerated to goal (per recommendation by dietitian). Critical care time spent on this patient's case: 30 minutes Manny Berry DO Jun 23, 2016 08:03
[2016-06-23] MEDS: Famotidine Inj 20 MG in IV Premix 1 EACH IV SCH (08:05)
[2016-06-23] MEDS: Multivitamins w/Minerals 5 mL Liquid Supplement PO SCH (08:06)
[2016-06-23] MEDS ORDERED: KCl 40 mEq/100 mL (CENTRAL) 40 MEQ in IV Premix 1 EACH IV ONE (09:30)
--- NOTE | 2016-06-23 10:49 | PCM.PNCARD ---
Subjective Date of service Jun 23, 2016 Chief Complaint Newly diagnosed LV systolic dysfunction by echocardiogram History of Present Illness Patient was started on vasopressors last night due to low BP. Patient was started on low dose Coreg and Lisinopril yesterday for his HFrEF and plus yesterday morning he had BP's around 120/100 mmHg. Exam Vital Signs Vital Sign - Last Date Time Temp Pulse Resp B/P Pulse Ox O2 Delivery O2 Flow Rate FiO2 06/23/16 09:15 89 88/65 100 30 06/23/16 07:38 36.7 13 Mechanical Ventilator 06/17/16 15:21 8.00 Intake and Output 06/22/16 06/22/16 06/23/16 Cumulative From/Thru 15:00 23:00 07:00 06/15/16 18:05 - 06/23/16 05:16 Intake Total 1678 ml 2542 ml 44170 ml Output Total 1000 ml 250 ml 92496 ml Balance 678 ml 2292 ml 8706 ml Intake Oral 470 ml IV Total 1120 ml 2099 ml 65120 ml Tube Feeding 503 ml 413 ml 1639 ml Tube Irrigant 55 ml 30 ml 475 ml Output Urine Total 1000 ml 250 ml 45423 ml Gastric Drainage Total 1300 ml # Bowel Movements 0 0 0 Skin: Warm & dry to touch Head: Normocephalic Ears, Nose & Throat: Ears no gross abnormalities Nose no gross abnormalities Chest: Rhonchi Cardiac: Irregularly irregular rhythm Abdomen: Soft, non-distended, non-tender Extremities: Cool Neurological: Other (opens eyes and moves legs but does not follow commands) Lab and Diagnostics Result Diagram: 06/23/16 0550 06/23/16 0550 Assessment & Plan Problems: (1) Acute systolic (congestive) heart failure Plan: Unfortunately, patient was not able to tolerate HF meds. He is on vasopressors. Simply discontinue BB and ACEi for now and continue with IV amiodarone for rate control given his afib. He is heading for CT head and considering EEG as well. Prognosis is guarded at this time. When he is off of vasopressors and BP is back to normal then reconsider metoprolol succinate instead of Coreg since it has less BP effect and then add ACEi if tolerating BB. Reason to start BB before ACEi is because he has rapid afib and HF. If his prognosis is more favorable then he will most definitely need further workup for his HF but at this time, but this is most likely related to Etoh/ polysubstance abuse/stress. We will sign off on this case for now, but my partner Dr. Delaney will be hand expansion envelope maker this weekend if you need any further assistance. Status: Acute ICD Code: I50.21 (2) Atrial fibrillation with RVR Status: Acute ICD Code: I48.91 (3) Atrial flutter Qualifiers: Atrial flutter type: typical Qualified Code: I48.3 - Typical atrial flutter Status: Acute ICD Code: I48.92 (4) Alcohol intoxication Qualifiers: Complication of substance-induced condition: with delirium Qualified Code: F10.121 - Alcohol abuse with intoxication delirium Status: Resolved ICD Code: F10.129 Pain Evaluation: Adequate Pain Control Time spent 20 minutes Gabriel Hurd MD Jun 23, 2016 10:49
--- NOTE | 2016-06-23 13:13 | NUR ---
NUTRITION FOLLOW-UP: ASSESS: 61 YO m admitted to CCU with A-fib w/ RVR. CIWA protocol in effect. Pt. intubated 06/17/16 to protect airway during management of substance withdrawal. He has been riding the vent through the night except for intermittent periods of agitation at which time he will overbreathe. Plan for today is for non-contrast CT of brain and EEG. Enteral feeding is currently at goal rate, with minimal residuals. PMHx: Polysubstance abuse, schizoaffective disorder, hepatitis C, suicide ideation / attempt. ENTERAL FEEDING: Vital 1.5 at goal rate 55 ml/hr, providing 1815 kcal (TF + Propofol = 1973 kcal/day), 82 g protein; meeting 100% calorie needs and 86% protein needs. Flush 30 q 4 hrs for a total of 1,104 ml free fluid a day. LABS: Reviewed. Glu 162, Ca 8.1, Alb 2.7. MEDICATIONS: Reviewed. Folic Acid, MVI, Thiamine, Amiodarone, Levopohed. Propofol rate currently 6 ml/hr providing 158 kcal/day. GI: No BM noted since admit x 8 D. Bowel regimen initiated today. SKIN: Wound eval completed 06/19 - no redness or pressure areas. ANTHROPOMETRICS: Current Wt: 102.9 kg, BMI: 31.0 kg/m2, Admit weight: 98.8 kg (Admit BMI 30.4 kg/m2), IBW: 78.2 kg ESTIMATED NEEDS (Re-evaluated 06/22): Calories: 2468-5532 kcal/day (20-22 kcal/kg Admit BW) Protein: 95-115 g protein (1.2-1.5 g/kg IBW) Fluids: Approx. 2000 ml (~1 ml/kcal/day) NUTRITION DIAGNOSIS: 1) Inadequate oral intake related to somnolence, respiratory distress, as evidenced by current NPO status - IMPROVED WITH ENTERAL FEEDING AT GOAL RATE. INTERVENTION: 1) Will add one packet [employer] liquid protein b.i.d. to provide a total of 104 g protein, sufficient to meet 100% protein needs. 2) Will adjust TF goal rate based on daily Propofol rate. MONITOR/EVALUATE: Vent/NPO status, nutrition support saji, labs, POC, GI/nutrition status. Follow per high nutrition risk guidelines.
[2016-06-23] MEDS: fentaNYL 2,500 mCg/250 mL 2,500 MCG in IV Premix 1 EACH IV SCH (14:15)
[2016-06-23] MEDS: LORazepam 100 mg/100 mL Drip IV SCH ×2 (15:45)
--- NOTE | 2016-06-23 15:49 | DRSVH ---
PROCEDURE: CT BRAIN WITHOUT CONTRAST ([id number]) INDICATIONS: agitation, unresponsive TECHNIQUE: Noncontrast 4.5 mm thick angled axial sections acquired from the foramen magnum to the vertex, with c oronal reformats. COMPARISON: None. FINDINGS: Image quality: Excellent. CSF spaces: Basal cisterns are patent. No extra-axial fluid collections. The ventricles are symmet jacinta in size and shape. Brain: No intracranial bleeds or masses. There is cerebral volume loss for age, with resultant vent ricular and sulcal prominence. There are periventricular and deep white matter chronic small vessel ischemic changes. There is intracranial internal carotid artery atherosclerosis. Skull and face: Calvarium and visualized facial bones appear intact, without suspicious lesions. Sinuses: Visualized sinuses and mastoids are clear. IMPRESSION: No acute intracranial disease process. Dictated by: Afsaneh Badillo MD, PhD on 06/23/2016 at 15:45 Approved by: Afsaneh Badillo MD, PhD on 06/23/2016 at 15:48
--- NOTE | 2016-06-23 16:09 | NUR ---
Note Patient continued to have periods of hypo and hyper activity. During hyperactivity patient was restless, kicking his legs off the bed and reaching for his ET tube. Patient was able to open his eyes to verbal stimulation but was not following commands farther then that. Unable to wean down/off sedation IV medications propofol and fentanyl. patient continued to have periods of hypotension- MAP remained >60 but SBP tented to low- MD aware- Levophed drip increased to 0.07 mcg/kg/min-BP Improved. CT of the head was completed between 1040 and 1100 today. Patient was transported to CT in his bed with RN, RT and transported accompanying him. No seizure activity was noted today. EEG test in progress this afternoon- continue assessment.
[2016-06-23] MEDS: Norepinephrine 8,000 mCg/250 mL D5W Premix IV SCH (20:55)
[2016-06-24] VITALS (13 sets, daily range): BP systolic 84–127; BP diastolic 61–107; PULSE 69–100; RESP 13–16; O2SAT 98–99
--- NOTE | 2016-06-24 | NUR ---
Mentation: Pt did wiggle toes on command but was not able to squeeze fingers.
[2016-06-24] MEDS: Chlorhexidine 0.12% 15 mL Oral Solution MT SCH ×6 (01:03→20:40)
[2016-06-24] MEDS: Propofol Inj 1,000,000 MCG in IV Premix 1 EACH IV SCH ×3 (01:04→13:52)
[2016-06-24] MEDS: Heparin 5,000 Unit/mL Inj SUBQ SCH ×3 (01:30→16:04)
--- NOTE | 2016-06-24 04:48 | ABG ---
DateTimeAnalyzed 04:42:00 -_ pH ____7.413 - pCO2 ___42.8__ -mmHg pO2 ___47.5__ -mmHg HCO3- ___26.8__ -mmol/L ABE ____2.4__ -mmol/L tHb ___14.0__ -g/dL O2Hb ___80.1__ -% COHb ____0.9__ -% MetHb ____0.7__ -% sO2 ___81.4__ -% FIO2 ___30.0__ -% PRVC 13 - PEEP ____5.0__ -cmH2O Vt __520.0__ -L Drawn By RN - Date/Time Notified____ 04:47:00 -_ Oxygen Device 1 VENTILATOR - Notified Whom RN - B 772 -mmHg tO2 ___15.7__ -Vol% Jesse test N/A -
[2016-06-24 05:08] LABS: BASOPHILS % (AUTO) 0.3 % (0-3); EOSINOPHILS % (AUTO) 6.1 % (0-5); MONOCYTES % (AUTO) 11.9 % (4-12); Mean Corpuscular Hemoglobin 31.6 pg (27.0-35.0); Mean Corpuscular Volume 96.1 fL (81-100); NEUTROPHILS % (AUTO) 60.9 % (40-74); Platelet Count 266 bil/L (150-400)
[2016-06-24 05:40] LABS: Magnesium 2.1 mg/dL (1.6-2.6)
--- NOTE | 2016-06-24 06:30 | NUR ---
Sedation/BP: Pt requires freq titration of levophed and propofol during the night. Pt was very agitated and restless a couple of times through the night requiring titration of propofol which caused drop in BP and levophed was increased to support BP.
[2016-06-24] MEDS: Dextrose 5% 0.45% NaCl 1,000 ML IV SCH (06:39)
[2016-06-24] MEDS: Famotidine Inj 20 MG in IV Premix 1 EACH IV SCH (07:46)
[2016-06-24] MEDS: Multivitamins w/Minerals 5 mL Liquid Supplement PO SCH (07:46)
--- NOTE | 2016-06-24 08:10 | DRSVH ---
PROCEDURE: X-RAY CHEST ONE VIEW, PORTABLE ([id number]) INDICATIONS: f/u fluid overload, infiltrate TECHNIQUE: One view of the chest was acquired. COMPARISON: [facility], CR, XR CHEST 1VW (PORTABLE), 06/20/2016, 5:54. [facility], CR, XR CHEST 1VW (PORTABLE), 06/21/2016, 7:12. [facility], CR, XR CHEST 1VW (CARY BLE), 06/22/2016, 7:03. FINDINGS: Surgical changes and devices: The endotracheal tube, nasogastric tube and left PICC are in stable pos itions. Lungs and pleura: Left basilar consolidation and small left pleural effusion. Small right effusion. Increased pulmonary mass clarity. No pneumothorax. No significant change. Mediastinum: Mediastinal contours appear normal. Heart size is normal. Bones and chest wall: No suspicious bony lesions. Overlying soft tissues appear unremarkable. IMPRESSION: Stable chest. Dictated by: Kristi Christianson M.D. on 06/24/2016 at 8:08 Approved by: Kristi Christianson M.D. on 06/24/2016 at 8:10
[2016-06-24] MEDS: Amiodarone 360 mg/200 mL D5W 360 MG in IV Premix 1 EACH IV SCH ×2 (10:23→22:52)
[2016-06-24] MEDS: Norepinephrine 8,000 mCg/250 mL D5W Premix IV SCH (10:24)
--- NOTE | 2016-06-24 11:13 | PROG NOTE ---
[address] [address] PROGRESS NOTE PATIENT: MARÍA JUAREZ : 1955 MR#: [id number] ADMIT: 06/15/2016 JOB ID: [id number] DATE: 06/24/2016 PULMONARY CRITICAL CARE NOTE: PROBLEM: 1. Altered mental status. 2. Hypertension. 3. Cardiomyopathy. 4. Atrial fibrillation. 5. Alcohol withdrawal. 6. Polysubstance abuse. SUBJECTIVE: None. OBJECTIVE: Temperature 36.6, with T-max being 36.9. Pulse is 82-100. Monitor showing atrial flutter. Respiratory rate 13 with ventilator set at 13. Blood pressure 100/65 to about 114/89. O2 sat on FiO2 of 30%, PEEP of 5 is 99%. I and O shows 4.2 L in, 0.4 L out. General appearance: The patient lying in bed with eyes closed. Does not seem to have any cognitive function. Events agitated behavior. No apparent purposeful movements other than trying to get out of the restraints. Eyes: Conjunctivae are pink and moist. No scleral icterus. Pupils about 1 mm in diameter. Nose and throat could not be examined. Chest: Fairly good breath sounds bilaterally. Lung antoine are clear. Heart: Slightly irregular rhythm. Heart tones normal. Abdomen is soft. Quiet. Nondistended. Bowel tones present. Extremities: 1+ pretibial edema. Lower extremities to above the ankle to below the knee are quite cold. LABORATORY DATA: Shows a white count of 7800 with a relatively normal differential. Hemoglobin stable at 13.9. Platelet count 266,000 and rising. Sodium 142, potassium 4.1, chloride 103, CO2 is 27, BUN 21, creatinine 0.8, calcium 8.5, magnesium 2.1. Sputum growing MSSA. However, it was a scant growth and sensitive. ASSESSMENT: 1. Altered mental status. Etiology of his apparent agitated delirium is unclear. Presumably due to his polysubstance abuse. 2. Metabolic acidosis. The metabolic acidosis has resolved. Venous blood gases on PEEP of 5, tidal volume of 520, rate of 13 show pCO2 of 42, pH 7.41. The anion gap acidosis has resolved. Patient with a relatively normal acid-base status now. 3. Cardiomyopathy. The patient did not tolerate either the angiotensin-converting enzyme inhibitor or the beta-uski. Currently, plan is to was withhold those medications, stabilize him and then consider adding . 4. Methicillin-sensitive Staphylococcus aureus in sputum. Unclear whether this represents a pathogen. The patient has a normal white count and differential. Antibiotics were discontinued yesterday. Without any signs of sepsis at this point. Will hold antibiotics. Monitor closely. Obtain a procalcitonin to help with our evaluation. PLAN: 1. Continue current regimen of sedatives. 2. Continue current vent settings. 3. Continue fluid support. TIME SPENT: Time spent so far on critical care is 25 minutes.
[2016-06-24] MEDS: fentaNYL 2,500 mCg/250 mL 2,500 MCG in IV Premix 1 EACH IV SCH (13:51)
[2016-06-24] MEDS: LORazepam 100 mg/100 mL Drip IV SCH ×2 (15:01)
[2016-06-24] MEDS ORDERED: Magnesium Hydroxide 10 mL Oral Concentration PO PRN (17:05)
--- NOTE | 2016-06-24 17:10 | PCM.PNMED ---
Subjective Date of Service Jun 24, 2016 Subjective Still intubated not following simple commands Exam Vital Signs Vital Sign - Last Date Time Temp Pulse Resp B/P Pulse Ox O2 Delivery O2 Flow Rate FiO2 06/24/16 16:41 99 103/71 99 30 06/24/16 15:50 36.5 13 Mechanical Ventilator Intake and Output 06/23/16 06/23/16 06/24/16 Cumulative From/Thru 15:00 23:00 07:00 06/15/16 18:05 - 06/24/16 05:52 Intake Total 1708 ml 1887 ml 44677 ml Output Total 235 ml 300 ml 20355 ml Balance 1473 ml 1587 ml 94404 ml Intake Oral 470 ml IV Total 1163 ml 1131 ml 07479 ml Tube Feeding 425 ml 666 ml 2730 ml Tube Irrigant 120 ml 90 ml 685 ml Output Urine Total 235 ml 300 ml 72191 ml Gastric Drainage Total 1300 ml # Bowel Movements 0 Exam Gen.-White male opened his eyes a bit when I spoke to him this morning Eyes-eyes closed, normal lids, no discharge Mouth-intubated ENT- ears normal, nose normal Neck- supple/trach midline CVS- RRR no murmur or gallop Lungs CTA ventilator sounds GI- NABS/NT soft Musculoskeletal: Patient in restraints extremities moving 4 no obvious deformity Neuro- cranial nerves II through XII intact to gross examination, nonfocal Skin- warm and dry, no rashes/lesions/wounds noted Unable to assess in current state Lab and Diagnostics Venous blood gas 06/24 on 30% ventilator pH ____7.413 - pCO2 ___42.8__ -mmHg pO2 ___47.5__ -mmHg HCO3- ___26.8__ -mmol/L Result Diagram: 06/24/16 0440 06/24/16 0440 Microbiology 2 blood -1 of 2 sputum positive for staph 06/20 X-Rays, CTs and MRIs CT Head IMPRESSION: No acute intracranial disease process.06/23 CXR IMPRESSION: Pulmonary edema and/or bibasilar pneumonia slightly decreased involving the right lung base. 06/22 [facility]iac Echo [facility] Summary The left ventricle is normal in size. Left ventricular systolic function is moderate to severely reduced. The ejection fraction is estimated to be 25-30%. Right ventricular systolic function is moderately reduced. The mitral valve leaflets appear mildly thickened, but open well. There is severe mitral regurgitation. There is severe tricuspid regurgitation. The right ventricular systolic pressure is estimated at 45 mmHg assuming a right atrial pressure of 15 mm Hg. There is marked deterioration in LVEF and increase in MR and TR, consider urgent cardiology evaluation Additional Diagnostics VBG this morning: PH 7.4, PCO2 48.6, PO2 42 with a sat of 75%, bicarbonate 30 Assessment & Plan 61-year-old male 06/15 admitted suicide attempt. History of alcohol and polysubstance use. SBP has been lowish on low dose of norepinephrine I am hoping that albumin brings volume intravascularly and we can utilize Lasix and discontinue the pressor altogether. 06/24. There also has been no weight today but my suspicion is patient's weight is going up as he will use 4 L positive since he was 102 kg our goal is to get him to his admitting weight closer to 100 kg. obtaining EKG 06/24 as I do not see one has been done this admission. Hypotension-this is been persistent and may be related to the ventilator and increased thoracic pressure. I am hoping we can discontinue it and supplement him with albumin and hopefully his blood pressure improves if we can extubate him. Constipation-bowel regimen of milk of magnesia and Dulcolax with fleets enemas beginning 06/25 if he does not have a bowel movement Acute respiratory failure -Intubated for airway protection and progressive pulmonary edema. Patient is successfully diuresed and may be nearing extubation. Hopefully we can lighten the sedation and do weaning trial tomorrow 06/25. acute systolic heart failure. The patient has did well with diuresis yesterday we will continue diuresis 06/20-06/21 chest x-ray improved. Reportedly weaning fall/bursa in lieu of using fentanyl which may also treat her cardiac withdrawal and pain/irritation. Patient was about 6 kg greater than his admission weight 06/21, down to 102 kg 2 kg greater than admission weight 06/23. Severe ETOH withdrawal, acute . POA.- He is 9 days out. delirium tremens should be over, attempt to light and/discontinue sedation 06/25 and extubate the patient. Atrial flutter / fibrillation, acute on chronic. POA.diltiazem drip and metoprolol when necessary IV boluses for rate control. -06/21, amiodarone drip started 06/21 cardiology consult 06/21 Depression /Suicidal ideation and attempt., Will need full evaluation would recommend Lexapro as an antidepressant unfortunately all atypical antipsychotics will be QT prolonging and of concern which is part of the reason I am getting an EKG to assess the QT interval before starting these medications when he is weaned. Acute metabolic encephalopathy, multifactorial will reevaluate when patient is weaned off of ventilator/sedating medications Acid base/anabolic disorders. He has had a persistent metabolic acidosis and respiratory alkalosis. hypoglycemia. BS 109-257 06/22 current regimen no changes Probable aspiration pneumonia. POA. We will continue Unasyn 06/19- 06/24 atleast (5 days). Repeat blood cultures today. All microbiologic data has been negative so far 06/22 1`. DVT prophylaxis with subcutaneous heparin. Pain Evaluation: Adequate Pain Control Resuscitation Status: CPR: Attempt Resuscitation Pain Evaluation: Adequate Pain Control VTE Mechanical Devices: Intermittant Pneumatic CD Resuscitation Status: CPR: Attempt Resuscitation Medically complex patient high-risk for complications VTE Mechanical Devices: Intermittant Pneumatic CD Nagi Yap MD Jun 24, 2016 17:10
--- NOTE | 2016-06-24 17:14 | NUR ---
Social Work: Continued Discharge Planning D: Pt discussed with MD and EMR reviewed; pt remains intubated as he is still not responding to verbal commands. Pt is on day 9 of stay after reporting that he had attempted to kill himself via overdose. Pt was round to be in AFIB and was vented for airway protection. A: Per history; pt was previously homeless living in [place]. P: FOREST NURSERY SUPERVISOR to continue to follow; if pt is expected to rely on vent for a prolonged period of time, [place] may be something to consider. FOREST NURSERY SUPERVISOR to complete MH and CD assessment with pt when appropriate. TAHMINA Hinson
[2016-06-24] MEDS: Albumin 25% 50 GM in IV Premix 1 EACH IV SCH (17:51)
[2016-06-24] MEDS: Magnesium Hydroxide 10 mL Oral Concentration PO SCH (18:44)
--- NOTE | 2016-06-24 18:51 | NUR ---
Decreased urine output Patient has had decreased urine output 200-350ml per 12h shifts for over 24h. Patient continued to have generalized body edema 1-2 +- MD was made aware and ordered albumin to be given IV followed by lasix IV. Unable to wean off or decreased sedation propofol and fentanyl because of increased agitation continue drips. Elevated tube feed/gastric residuals 50-175 ml during the shift- continue head of the bed elevation 30degrees at all times, tube feeding paused for repositioning. Patient has not had a BM since his admit- MD aware- started bowl evacuation regiment continue assessment.
[2016-06-24] MEDS: Furosemide 10 mg/mL 4 mL Inj IVPUSH SCH (20:48)
[2016-06-25] VITALS (14 sets, daily range): BP systolic 91–128; BP diastolic 56–84; PULSE 64–112; RESP 13–22; O2SAT 96–99
[2016-06-25] MEDS: Heparin 5,000 Unit/mL Inj SUBQ SCH ×3 (00:57→15:42)
[2016-06-25] MEDS: Chlorhexidine 0.12% 15 mL Oral Solution MT SCH ×7 (00:57→20:05)
[2016-06-25] MEDS: Albumin 25% 50 GM in IV Premix 1 EACH IV SCH ×3 (00:57→15:41)
[2016-06-25] MEDS: Magnesium Hydroxide 10 mL Oral Concentration PO SCH ×5 (02:30→20:05)
[2016-06-25] MEDS: Dextrose 5% 0.45% NaCl 1,000 ML IV SCH ×2 (03:15→20:17)
[2016-06-25 03:58] LABS: BASOPHILS % (AUTO) 0.5 % (0-3); EOSINOPHILS % (AUTO) 6.3 % (0-5); MONOCYTES % (AUTO) 11.4 % (4-12); Mean Corpuscular Hemoglobin 30.9 pg (27.0-35.0); Mean Corpuscular Volume 97.9 fL (81-100); NEUTROPHILS % (AUTO) 53.4 % (40-74); Platelet Count 219 bil/L (150-400)
[2016-06-25 04:28] LABS: TROPONIN T 0.01 ug/L (0.0-0.011)
--- NOTE | 2016-06-25 06:42 | NUR ---
Sedation vacation: Pt tolerated 35 off sedation from 1940 to 2009. During last 10min or so pt did start to get somewhat restless so sedation was restarted. Sedation was turned of again at 0615 pt is alert moving legs around but most part is calm. Pt is able to nod to question and follow commands.
[2016-06-25] MEDS ORDERED: KCl 40 mEq/100 mL Premix (K 3 - 3.7 & Creat < 2) IV ONE (06:55)
[2016-06-25] MEDS: Famotidine Inj 20 MG in IV Premix 1 EACH IV SCH (08:18)
--- NOTE | 2016-06-25 08:18 | PCM.PNMED ---
Subjective Date of Service Jun 25, 2016 Exam Vital Signs Vital Sign - Last Date Time Temp Pulse Resp B/P Pulse Ox O2 Delivery O2 Flow Rate FiO2 06/25/16 08:03 100 15 106/81 97 30 06/25/16 04:30 36.8 Mechanical Ventilator Intake and Output 06/24/16 06/24/16 06/25/16 Cumulative From/Thru 14:59 22:59 06:59 06/15/16 18:05 - 06/25/16 05:50 Intake Total 1946 ml 2420 ml 64424 ml Output Total 250 ml 2950 ml 23353 ml Balance 1696 ml -530 ml 18612 ml Intake Oral 470 ml IV Total 1167 ml 1579 ml 38918 ml Tube Feeding 609 ml 676 ml 4015 ml Tube Irrigant 170 ml 165 ml 1020 ml Output Urine Total 250 ml 2950 ml 95902 ml Gastric Drainage Total 1300 ml # Bowel Movements 0 Exam Gen.-White male wide awake and responsive, following simple commands Eyes-eyes closed, normal lids, no discharge Mouth-intubated ENT- ears normal, nose normal Neck- supple/trach midline CVS- RRR no murmur or gallop, generalized edema Lungs CTA ventilator sounds GI- NABS/NT soft Musculoskeletal: Patient in restraints extremities moving 4 no obvious deformity Neuro- cranial nerves II through XII intact to gross examination, nonfocal Skin- warm and dry, no rashes/lesions/wounds noted, his facial skin is dry and peeling Psych - Unable to assess in current state on return patient seemed very confused and was nonverbal Lab and Diagnostics DateTimeAnalyzed 09:56:00 -_ pH ____7.430 - 7.350 7.450 pCO2 ___48.4__ -mmHg 35.0 45.0 pO2 ___82.6__ -mmHg 69.0 116 HCO3- ___31.6__ -mmol/L 22.0 26.0 ABE ____6.6__ -mmol/L -2.0 2.0 tHb ___12.5__ -g/dL O2Hb ___95.0__ -% COHb ____0.9__ -% MetHb ____0.7__ -% sO2 ___96.5__ -% 25.0 FIO2 ___30.0__ -% Pressure_Support ____5.0__ -cmH2O PEEP ____5.0__ -cmH2O Drawn By NB - Date/Time Notified____ 10:00:00 -_ Spontaneous_RR ___16.0__ -b/min Oxygen Device 1 VENTILATOR - Notified By nb - Notified Whom Maya - Result Diagram: 06/25/16 0350 06/25/16 0350 Microbiology 2 blood -1 of 2 sputum positive for staph 06/20 X-Rays, CTs and MRIs CT Head IMPRESSION: No acute intracranial disease process.06/23 CXR IMPRESSION: Pulmonary edema and/or bibasilar pneumonia slightly decreased involving the right lung base. 06/22 Cardiac Echo Impressions ECHO 06/16 [facility] Interpretation Summary The left ventricle is normal in size. Left ventricular systolic function is moderate to severely reduced. The ejection fraction is estimated to be 25-30%. Right ventricular systolic function is moderately reduced. The mitral valve leaflets appear mildly thickened, but open well. There is severe mitral regurgitation. There is severe tricuspid regurgitation. The right ventricular systolic pressure is estimated at 45 mmHg assuming a right atrial pressure of 15 mm Hg. There is marked deterioration in LVEF and increase in MR and TR, consider urgent cardiology evaluation Additional Diagnostics VBG this morning: PH 7.4, PCO2 48.6, PO2 42 with a sat of 75%, bicarbonate 30 Assessment & Plan 61-year-old male 06/15 admitted suicide attempt. History of alcohol and polysubstance use. Intubated a few days later has been ventilated since then poorly responsive sedated having issues with rate control with atrial fibrillation until he was started on amiodarone drip. He will needed pressors to keep his blood pressure up until 06/25. I will still attempt to diurese slowly back down to his admitting weight of about 100 kg. As his blood pressure improves we will institute beta suki/LINDA as able depending on blood pressure. Now that he is extubated we will need to address his mental needs, and we need an EKG as he already has a prolonged QT interval and virtually all these medications have a QT prolongation and effect. We will need to get social work/psychiatry involved increasingly as we formulate a discharge plan for this gentleman if mobilizes after this week of intubation. Hypotension- pressors discontinued 06/25 supplemented with albumin low/narrow pulse pressure is related to underlying cardiomyopathy of uncertain etiology. Constipation-bowel regimen of milk of magnesia and Dulcolax with fleets enemas beginning + BM sml 06/25 Acute respiratory failure -Intubated for airway protection and progressive pulmonary edema. Patient is successfully diuresed and may be nearing extubation. Hopefully we can lighten the sedation and do weaning trial tomorrow 06/25. acute systolic heart failure. EF Patient was about 6 kg greater than his admission weight 06/21, down to 102 kg 2 kg greater than admission weight 06/23. Severe ETOH withdrawal, acute . POA.- He is 9 days out. delirium tremens should be over, attempt to light and/discontinue sedation 06/25 and extubate the patient. Atrial flutter / fibrillation, acute on chronic. amiodarone drip started cardiology consult 06/21, rate has been better controlled will evaluate weaning with cardiology 06/26 no changes 06/25 Depression /Suicidal ideation and attempt., Will need full evaluation would recommend Lexapro as an antidepressant unfortunately all atypical antipsychotics will be QT prolonging and of concern which is part of the reason I am getting an EKG to assess the QT interval before starting these medications when he is weaned. Acute metabolic encephalopathy, multifactorial will reevaluate when patient is weaned off of ventilator/sedating medications Acid base/anabolic disorders. He has had a persistent metabolic acidosis and respiratory alkalosis. hypoglycemia. BS 109-257 06/22 current regimen no changes Probable aspiration pneumonia. POA. We will continue Unasyn 06/19- 06/24 atleast (5 days). Repeat blood cultures today. All microbiologic data has been negative so far 06/22 Prophylaxis-DVT with SCDs/subcutaneous heparin, GI Disposition-patient full code from home 1`. DVT prophylaxis with subcutaneous heparin. Pain Evaluation: Adequate Pain Control Resuscitation Status: CPR: Attempt Resuscitation Pain Evaluation: Adequate Pain Control VTE Mechanical Devices: Intermittant Pneumatic CD Resuscitation Status: CPR: Attempt Resuscitation Medically complex patient high-risk for complications VTE Mechanical Devices: Intermittant Pneumatic CD Nagi Yap MD Jun 25, 2016 08:18
[2016-06-25] MEDS: Furosemide 10 mg/mL 4 mL Inj IVPUSH SCH ×2 (08:21→20:16)
[2016-06-25] MEDS: Multivitamins w/Minerals 5 mL Liquid Supplement PO SCH (08:21)
[2016-06-25] MEDS: Sodium Biphos-Phos 133 mL Enema RECTAL SCH (08:30)
[2016-06-25] MEDS: Amiodarone 360 mg/200 mL D5W 360 MG in IV Premix 1 EACH IV SCH ×2 (08:42→20:17)
--- NOTE | 2016-06-25 08:57 | NUR ---
Social Work: Initial Assessment and CDP D: Per EMR review, pt is a 61 year old male admitted for AFIB with RVR. Pt is Medicare with no supplement; pt has VA benefits but no LTC insurances. NOK is Lorin Hanks, dtr, . Advanced directives not completed. Readmit score is moderate, 5/8. Pt is on day 10 of hospitalization and admitted after presenting to the ED with suicidal ideation and reporting that he had tried to commit suicide via overdose the day prior. Pt has a history of ETOH withdrawal and suicidal and homicidal ideation. Pt remains vented in the CCU and is not following verbal commands. LABORATORY ENGINEER was able to make phone contact with pt's daughter, Melody ([phone]) to complete IA. SW role explained. See initial assessment. Pt is still homeless and I. He primarily uses public transportation and is familiar with community resources for homelessness. Family states pt has been homeless by choice. LABORATORY ENGINEER discussed that pt may require continued rehab due to length of hospitalization and bedrest status. They would like to approach this subject when pt's medical status is more improved. LABORATORY ENGINEER respects this request and will continue to follow along. Case management contact information provided to her and left on white board in pt's room. A: Pt who was previously I. P: LABORATORY ENGINEER to continue to follow and complete CD/MH assessment when pt is appropriate and medically stable TAHMINA Hinson Addendum: 06/25/16 at 1057 by CAROL MYRICK Amended: Links added.
--- NOTE | 2016-06-25 09:12 | NUR ---
DAPHNEY Signed Verbal Consent via t/c
[2016-06-25] MEDS: fentaNYL 2,500 mCg/250 mL 2,500 MCG in IV Premix 1 EACH IV SCH (09:57)
--- NOTE | 2016-06-25 10:01 | ABG ---
DateTimeAnalyzed 09:56:00 -_ pH ____7.430 - 7.350 7.450 pCO2 ___48.4__ -mmHg 35.0 45.0 pO2 ___82.6__ -mmHg 69.0 116 HCO3- ___31.6__ -mmol/L 22.0 26.0 ABE ____6.6__ -mmol/L -2.0 2.0 tHb ___12.5__ -g/dL O2Hb ___95.0__ -% COHb ____0.9__ -% MetHb ____0.7__ -% sO2 ___96.5__ -% 25.0 FIO2 ___30.0__ -% Pressure_Support ____5.0__ -cmH2O PEEP ____5.0__ -cmH2O Drawn By NB - Date/Time Notified____ 10:00:00 -_ Spontaneous_RR ___16.0__ -b/min Oxygen Device 1 VENTILATOR - Notified By nb - Notified Whom Kendregan - B 766 -mmHg tO2 ___16.8__ -Vol% Jesse test N/A -
--- NOTE | 2016-06-25 15:36 | PROG NOTE ---
[address] [address] PROGRESS NOTE PATIENT: MARÍA JUAREZ : 1955 MR#: [id number] ADMIT: 06/15/2016 JOB ID: [id number] DATE: 06/25/2016 PROBLEM: 1. Altered mental status. 2. Hypertension. 3. Cardiomyopathy. 4. Atrial fibrillation. 5. Alcohol withdrawal. 6. Polysubstance abuse. SUBJECTIVE: The patient is awake. Seems appropriate. With nonverbal communication indicates he is not having any shortness of breath, chest or abdominal pain. Anxious to have the tube out. OBJECTIVE: Temperature 36.6. Pulse of 64-100. Monitor shows atrial fibrillation. Respiratory rate 15. Blood pressure 98/84 to 106/81. O2 sat on FiO2 of 30%, PEEP of 5, is 97%. I and O shows 3.8 L in, 0.5 L out. General appearance: No acute distress. Currently on a pressure support weaning trial. Doing well. Awake. Seemingly answering appropriately. Chest: Somewhat diminished breath sounds at the bases. Clear. No use of accessory muscles. Heart: Slightly irregular. Heart tones seem normal. Abdomen is soft. Nondistended. Nontender. A few bowel tones are present. Extremities: SCD in place. Maybe trace pedal edema. Hard to tell. LABORATORY DATA: Shows a white count of 5900, with essentially normal differential. Maybe slightly increased eosinophils. Hemoglobin 11.6, down from 13.9. Platelet count 219,000, relatively stable. Sodium 140, potassium 3.7, chloride 99, CO2 is 28. BUN 20, creatinine 0.79 and stable. Glucose moderately elevated at 215. Calcium 8. ProBNP is 948. Albumin yesterday was 3. After 2 L of pressure support trial at 5/5, FiO2 of 30%. Blood gases show a pO2 of 82, pCO2 48, a pH of 7.43. 1. Significant improvement in his altered mental status. Seems awake and appropriate. 2. Ventilator dependence. Doing reasonably well. Has mild hypoventilation but he is somewhat alkalotic. I think he can be extubated safely. Has a cuff leak. Takes deep breaths on commands and seems mentally appropriate. Has tolerated 2 hours of pressure support rather well. 3. Cardiomyopathy. Etiology, at least to my mind, is unclear. Currently on an amiodarone drip for his atrial fibrillation. I would think that we could stop the amiodarone and switch him over to beta blockers for rate control, and then if he tolerates that, consider lisinopril for his cardiomyopathy. Will leave the etiology of the cardiomyopathy and subsequent critical care to Cardiology Service, who has been involved in his care. 4. Metabolic alkalosis. Likely has been due to his aggressive diuresis and other medical interventions. Suspect that we can give him a bit more fluids as he continues to improve, supplement his potassium a bit better, and the metabolic alkalosis will resolve. Do suspect that there is some element of mild hypoventilation due to his being a bit sedated. That hopefully will able to be discontinued. 5. Bipolar. Need to find out his medications. He has not been taking them or frankly any of his other medications for about a year according to historical details. Will need to get his psych history back under control. PLAN: 1. Extubate to cool mist. 2. Supplemental potassium. 3. Once he passes speech eval, consider changing amiodarone, maybe initially two esmolol to see if he tolerates the beta suki better and then switch over to oral beta blockers for rate control. Subsequently adding lisinopril for his cardiomyopathy if it is felt that this is a long-term issue. 4. Speech evaluation. 5. Physical therapy for strengthening and mobility. Time spent so far in critical care is 46 minutes.
[2016-06-25] MEDS: LORazepam 100 mg/100 mL Drip IV SCH ×2 (15:38)
--- NOTE | 2016-06-25 18:03 | NUR ---
Extubation Patient was able to fallow simple commands this morning. Propofol sedation had been off since rn shift mgr. Fentanyl and Levophed drips were weaned down and turned off. Patient remained on pressure support trail with stable vitals. Patient was extubated at 1040 today and placed on mist mask at 30% FIO2 with oxygen saturation remained 94-98%, patient was breathing 14-25per min. After extubation patient had garbled and difficult to understand speech- MD aware. Humidified O2 helped to relive through discomfort. Patients family came to visit at noon time today. Shortly after that the patient stated the he wanted to leave the hospital AMA. Consulted with attending MD and Human Capital Manager assigned to the patient - MD stated: "patient to remain in the hospital under observation at least until he is medically clear and evaluated by psych based on the circumstances of this hospitalization." This was explained to the patient and his family- patient reluctantly agreed to comply- continue close observation.
[2016-06-25] MEDS: Propofol Inj 1,000,000 MCG in IV Premix 1 EACH IV SCH (18:06)
--- NOTE | 2016-06-25 20:35 | PROCED ---
[address] [address] EEG PATIENT: MARÍA JUAREZ : 1955 MR#: [id number] ADMIT: 06/15/2016 JOB ID: [id number] DATE OF SERVICE: 06/23/2016 HISTORY: The patient is a 61-year-old man with a history of intermittent mental status changes. TECHNICAL DESCRIPTION: This digital EEG was recorded using 25 scalp and ear, and 2 EKG electrodes. It was reviewed in bipolar and referential montages following reformatting of the 10-20 International Electrode Placement System. The propofol was held for this test. During the recording, patient was noted to be awake, drowsy and asleep. The background was composed of 6-7 Hz, 10-20 microvolt symmetrical and reactive posterior dominant rhythm that attenuated with eye opening. The rest of the background was composed of low voltage faster frequencies. There were no focal, lateralized, or epileptiform discharges noted. Hyperventilation was not performed. Photic stimulation from 1-30 Hz did not elicit any photic driving response. Sleep was characterized by the attenuation of the alpha rhythm and the appearance of symmetrical vertex waves, heralding stage 1 of sleep. This is followed by the development of symmetrical sleep spindles, heralding stage 2 of sleep. Toward the end of the recording, the patient awoke and myogenic and movement artifact was noted. The EKG rhythm strip revealed a heart rate of 60 to 80 beats per minute with occasional premature ventricular complexes noted. IMPRESSION: This electroencephalogram performed in the awake, drowsy and asleep states is abnormal. The slow background is suggestive of mild cerebral cortical dysfunction/encephalopathy. This is nonspecific and may be seen in a wide variety of different clinical conditions, including medication side effect resulting in sedation. In this case, propofol was held prior to the study. It may also be seen in a wide variety of different clinical conditions, including toxic, metabolic, hypoxic, inflammatory, autoimmune, and infectious states. Clinical correlation is advised. If clinically indicated, a repeat study off all sedative agents may be helpful. MTDD
[2016-06-26] VITALS (7 sets, daily range): BP systolic 98–131; BP diastolic 68–99; PULSE 115–124; RESP 17–23; O2SAT 92–96
[2016-06-26] MEDS: Albumin 25% 200 ML IV SCH ×2 (00:13→08:07)
[2016-06-26] MEDS: Heparin 5,000 Unit/mL Inj SUBQ SCH ×4 (00:20→23:53)
--- NOTE | 2016-06-26 05:49 | NUR ---
Mentation/Cardiac/Resp/GI Patient A&Ox2 to person and place, restless and fidgety at times, soft bilateral restraints in place, HR ST this shift, increases to the 120's while awake, tolerating aerosol mist O2 mask at 30% well, sats 93-95% noted, BP 140's/90's, Amiodarone gtt infusing at 0.5mg/min, patient had 4 LG BM's this shift, incontinent of stool, bowel regimen held, over 3L urine output in catheter, will continue to monitor, will report off to day shift RN, no distress noted. Addendum: 06/26/16 at 0601 by NEHEMIAS TORRES RN Amended: Links added.
--- NOTE | 2016-06-26 07:31 | PCM.PNMED ---
Subjective Date of Service Jun 26, 2016 Subjective Patient intermittently agitated but otherwise doing well. He denies chest pain , dyspnea, nausea vomiting Exam Vital Signs Vital Sign - Last Date Time Temp Pulse Resp B/P Pulse Ox O2 Delivery O2 Flow Rate FiO2 06/26/16 04:19 36.3 122 22 121/92 96 Aerosol Mask 30 06/26/16 03:40 10.00 Intake and Output 06/25/16 06/25/16 06/26/16 Cumulative From/Thru 15:00 23:00 07:00 06/15/16 18:05 - 06/26/16 05:18 Intake Total 1100 ml 1000 ml 65991 ml Output Total 2700 ml 2750 ml 60398 ml Balance -1600 ml -1750 ml 9582 ml Intake Oral 0 ml 470 ml IV Total 1100 ml 1000 ml 58679 ml Tube Feeding 0 ml 4015 ml Tube Irrigant 0 ml 1020 ml Output Urine Total 2700 ml 2750 ml 23529 ml Gastric Drainage Total 1300 ml # Bowel Movements 1 4 5 Exam Gen.-White male wide awake and responsive, well-nourished Eyes-eyes open, pupils equal, conjunctiva clear ENT- ears normal, nose normal Neck- supple/trach midline CVS- RRR no murmur or gallop, generalized edema Lungs CTA no accessory muscle usage no wheezes or rhonchi no evidence of respiratory distress GI- NABS/NT soft Musculoskeletal: Patient in restraints extremities moving 4 no obvious deformity Neuro- cranial nerves II through XII intact to gross examination, nonfocal Skin- warm and dry, no rashes/lesions/wounds noted, his facial skin is dry and peeling Psych - patient is pleasant and appropriate, seems a bit ajay and poorly verbal Lab and Diagnostics Result Diagram: 06/25/16 0350 06/25/16 1512 Microbiology 2 blood -1 of 2 sputum positive for staph 06/20 X-Rays, CTs and MRIs CT Head IMPRESSION: No acute intracranial disease process.06/23 CXR IMPRESSION: Pulmonary edema and/or bibasilar pneumonia slightly decreased involving the right lung base. 06/22 12-lead ECG A. fib/flutter QTc calculated to be around 400 ms 06/25 concurrently/personally reviewed by Marely Cardiac Echo Impressions ECHO 06/16 Apolinar Interpretation Summary The left ventricle is normal in size. Left ventricular systolic function is moderate to severely reduced. The ejection fraction is estimated to be 25-30%. Right ventricular systolic function is moderately reduced. The mitral valve leaflets appear mildly thickened, but open well. There is severe mitral regurgitation. There is severe tricuspid regurgitation. The right ventricular systolic pressure is estimated at 45 mmHg assuming a right atrial pressure of 15 mm Hg. There is marked deterioration in LVEF and increase in MR and TR, consider urgent cardiology evaluation Assessment & Plan 61-year-old male 06/15 admitted suicide attempt. History of alcohol and polysubstance use. Intubated a few days later has been ventilated since then poorly responsive sedated having issues with rate control with atrial fibrillation until he was started on amiodarone drip. A flutter/fib, acute/chronic. amiodarone drip started 06/21 cardiology consult 06/21, rate was improved request cards input on weaning 06/26 adding metoprolol 06/26 acute systolic heart failure. EF Patient was about 6 kg greater than his admission weight 06/21, down to 102 kg 2 kg greater than admission weight 06/23. Depression /Suicidal ideation and attempt., Lexapro/Seroquel started 06/25 calling for psychiatry consult/evaluation Dr Garcia 06/26 pg out 1245 Weakness- PTE bowel begin mobilizing getting patient out of bed 06/26 Acute metabolic encephalopathy, speech swallow/cognitive eval 06/26 Hypotension- pressors discontinued 06/25 supplemented with albumin low/narrow pulse pressure is related to underlying cardiomyopathy of uncertain etiology. SBP 120-130s 06/26 Constipation-bowel regimen of milk of magnesia and Dulcolax with fleets enemas beginning + BM sml 06/25, resolved multiple BMs -discontinuing aggressive bowel regimen 06/26 Acute respiratory failure -Intubated for airway protection and progressive pulmonary edema. Patient successfully diuresed and Extubated 06/25 Severe ETOH withdrawal, acute . POA.- last drink 06/15. delirium tremens should be over, Acid base/anabolic disorders. He has had a persistent metabolic acidosis and respiratory alkalosis. hypoglycemia. BS 109-257 06/22 current regimen no changes Probable aspiration pneumonia. POA. We will continue Unasyn 06/19- 06/24 atleast (5 days). Repeat blood cultures today. All microbiologic data has been negative so far 06/22 Prophylaxis-DVT with SCDs/subcutaneous heparin, GI Disposition-patient full code from home 1`. DVT prophylaxis with subcutaneous heparin. Pain Evaluation: Adequate Pain Control Resuscitation Status: CPR: Attempt Resuscitation Pain Evaluation: Adequate Pain Control VTE Mechanical Devices: Intermittant Pneumatic CD Resuscitation Status: CPR: Attempt Resuscitation Medically complex patient high-risk for complications VTE Mechanical Devices: Intermittant Pneumatic CD Nagi Yap MD Jun 26, 2016 07:31
[2016-06-26] MEDS: Amiodarone 360 mg/200 mL D5W 360 MG in IV Premix 1 EACH IV SCH (07:35)
[2016-06-26] MEDS: Famotidine Inj 20 MG in IV Premix 1 EACH IV SCH (07:37)
[2016-06-26] MEDS: Chlorhexidine 0.12% 15 mL Oral Solution MT SCH ×3 (07:37→14:07)
[2016-06-26] MEDS: Magnesium Hydroxide 10 mL Oral Concentration PO SCH ×4 (07:37→23:43)
[2016-06-26] MEDS: Sodium Biphos-Phos 133 mL Enema RECTAL SCH (07:38)
[2016-06-26] MEDS: Furosemide 10 mg/mL 4 mL Inj IVPUSH SCH (08:07)
[2016-06-26] MEDS: Multivitamins w/Minerals 5 mL Liquid Supplement PO SCH (08:08)
[2016-06-26] MEDS: fentaNYL 2,500 mCg/250 mL 2,500 MCG in IV Premix 1 EACH IV SCH (09:50)
--- NOTE | 2016-06-26 10:28 | PCM.PNMED ---
Subjective Date of Service Jun 26, 2016 Subjective Pulmonary critical care consultation progress note: Problems: Intubated on 06/17/16 for airway protection and fluid overload, extubated . Atrial fibrillation/flutter with RVR Alcohol withdrawal with likely contribution from polysubstance/opiate withdrawal (meth and heroin reported historically) Acute heart failure with reduced ejection fraction (25-30%; EF was normal in 2015) Chest x-ray findings of fluid overload, bilateral small pleural effusions with bibasilar airspace opacities (patient was on empiric Unasyn x 5 days until ) Anion gap metabolic acidosis with a metabolic alkalosis, and a primary respiratory alkalosis Metabolic encephalopathy History of hepatitis C (unknown if treated) Bipolar (report of suicidal ideation and history of suicide attempt) Subjective: Overnight, still somewhat restless, pulling at IV (soft restraints continue in place). 4 very large BMs overnight. Otherwise reportedly alert and oriented for the most part, and tolerating O2 supplementation well. Today, he reports feeling rather well, but complains of thirst. He otherwise denies pain, sob. He reports some discomfort at his penis, and attempts to reach Valdes with restrained hands. Otherwise pleasantly disoriented. Further review of systems difficult to obtain given patient's status. Exam Vital Signs Vital Sign - Last Date Time Temp Pulse Resp B/P Pulse Ox O2 Delivery O2 Flow Rate FiO2 06/26/16 08:00 Supplement Oxygen 06/26/16 08:00 36.6 124 23 131/99 94 30 06/26/16 03:40 10.00 Intake and Output 06/25/16 06/25/16 06/26/16 Cumulative From/Thru 15:00 23:00 07:00 06/15/16 18:05 - 06/26/16 05:18 Intake Total 1100 ml 1000 ml 37749 ml Output Total 2700 ml 2750 ml 43447 ml Balance -1600 ml -1750 ml 9582 ml Intake Oral 0 ml 470 ml IV Total 1100 ml 1000 ml 83659 ml Tube Feeding 0 ml 4015 ml Tube Irrigant 0 ml 1020 ml Output Urine Total 2700 ml 2750 ml 61001 ml Gastric Drainage Total 1300 ml # Bowel Movements 1 4 5 Exam Gen.: Obese gentleman lying in hospital bed. appears somewhat restless, but no acute distress. Verbalizes feeling OK, but thirsty. HEENT: Normocephalic, pupils equal and reactive to light bilaterally, EOMi, mucous membranes moist, poor dentition. Chest: Somewhat coarse (though improved) throughout the anterior and lateral antoine bilaterally. Cardiovascular: irregularly irregular rhythm consistent with atrial flutter noted on monitor. I do not appreciate a murmur today. Radial pulses are 2+ bilaterally. Abdomen: Soft, bowel tones present, I do not appreciate any hepatosplenomegaly or other masses. Extremities: Minimal nonpitting edema noted in the lower extremities and upper extremities. Left-sided PICC line with clean dressing and no surrounding erythema. Neuro: Somewhat alert, but only oriented to self and somewhat to date. (He report the December,. Place is reportedly [facility]). UOP yesterday 5650, today so far 2750 recorded. His overall fluid balance this admission is +9.5L. Lines: Left upper extremity PICC line, Valdes IVs and Medications IV Fluids D5NS at 50cc/hr Medications Reviewed: Medications were reviewed in detail Lab and Diagnostics No new labs today. Micro: Blood, sputum cultures negative to date. Repeat sputum sample was sent on 06/20/16 and found Staph aureus. MRSA nasal screen negative. Result Diagram: 06/25/16 0350 06/25/16 1512 Assessment & Plan 1. Intubated on 06/17/16 to protect airway during management of substance withdrawal (as noted in detail below), and now extubated and doing well from respiratory standpoint since 06/25/16. 2. Atrial fibrillation/flutter with RVR-patient currently on an amiodarone drip , and primary team added Metoprolol. Cardiology currently following as well. He is currently rate controlled. 3. Alcohol withdrawal with likely contribution from polysubstance/opiate withdrawal (heroin and methamphetamine reported historically). CT brain and EEG both unremarkable. 4. Acute heart failure with reduced ejection fraction (25-30%; EF was normal in 02/2016)-does not appear to be ischemic in nature as all troponins have been negative. IV cardiac medications as noted above in #2, and we will defer further diuresis to primary team and cardiology. Would be prudent to perform limited echo prior to discharge to assess EF. 5. Chest x-ray findings of fluid overload and bilateral small pleural effusions with bibasilar airspace opacities (patient on empiric antibiotics with Unasyn and today is day 5)-continues on IV D5NS at 50 mL per hour. Likely secondary to his fluid overload and atelectasis. He received a 5 day course of Unasyn (completed on 06/23/16). Please note that the patient has a reported history of hepatitis C (unknown if ever treated). 6. Anion gap metabolic acidosis with a primary metabolic alkalosis (contraction -iatrogenic, secondary to diuresis), and a compensatory respiratory acidosis.- We have investigated the possibility of an elevated anion gap without acidemia ( but his total protein, lipid panel, and serum glucose are not consistent with this). There is certainly the possibility of an unmeasured anion potentially from the methamphetamine and/or heroin that he took prior to admission (there is certainly potential that these drugs were "cut" with a substance that we are not able to measure on our routine labs). Alcoholic ketosis is less likely as the urine ketones were negative. Ingestions would certainly be a concern in this gentleman. No urinary crystals were noted on the UA, and the measured to calculated serum osmolality did not demonstrate a gap. Salicylate and acetaminophen levels were negative. It should also be noted that the lactate level has been in normal limits throughout hospitalization. His alkalemia is secondary to contraction in the setting of significant diuresis. Further fluid and diuresis per primary team and cardiology. No new labs today to assess. Recommend BMP with Albumin and mixed venous blood gas in the AM. 7. Metabolic encephalopathy (improving)-likely related to withdrawal in the setting of chronic underlying psychiatric disorders, with the possibility of contribution from his significant reduction in LVEF. Ammonia level is low. EEG and CT brain findings unremarkable. Will schedule Seroquel given his ongoing restlessness. QTc at admission was good. 8. Acute kidney injury-baseline creatinine closer to 0.8, or 0.9. Recommendations: -Schedule Seroquel. -Defer further decisions regarding diuresis to primary and cardiology. -Atrial fibrillation/flutter with RVR and acute heart failure to be managed by primary team with cardiology. -Recommend making bowel regimen PRN given his overnight response. CODE STATUS: Full code DVT prophylaxis with subcutaneous heparin GI prophylaxis with famotidine Nutrition: Needs speech eval to assess swallow. Was on TF at goal while intubated. Critical care time spent on this patient's case: 30 minutes Attending Statement I have seen and examined this patient with the resident physician. Vital signs , labs, imaging have been reviewed. I agree with the assessment and plan above. Please refer to my separately dictated progress note for any modifications to above. Clotilde Gruber M.D. Pulmonary and Critical Care medicine Pager [phone] Manny Berry DO Jun 26, 2016 10:28 Clotilde Gruber MD Jun 26, 2016 16:16
--- NOTE | 2016-06-26 10:48 | NUR ---
Evaluation completed. Please go to "Notes" then click on "Assessments and Notes" (bottom left corner of screen). Then select appropriate discipline tab on top of screen.
--- NOTE | 2016-06-26 11:30 | NUR ---
NUTRITION FOLLOW-UP: ASSESS: 61 YO m admitted to CCU with A-fib w/ RVR. Pt required intubated 06/17/16 to protect airway during management of substance withdrawal. Pt extubated 06/25. Diet advanced per speech therapy to pureed, no PO intake recorded yet. PMHx: Polysubstance abuse, schizoaffective disorder, hepatitis C, suicide ideation/attempt. ENTERAL FEEDING: (Discontinued) Vital 1.5 at goal rate 55 ml/hr. DIET: Pureed, nectar thick liquids. ST. PO intake not recorded yet. MEDICATIONS: Reviewed. Albumin, Lasix, Miralax. LABS: (06/25): Glu 215, Ca 8.0, (06/24): Alb 3.0 GI: 4 BM 06/26. SKIN: No issues noted. ANTHROPOMETRICS: Current Wt: 101.1 kg, BMI: 31.1 kg/m2, Admit weight: 98.8 kg (Admit BMI 30.4 kg/m2), IBW: 78.2 kg ESTIMATED NEEDS (Re-evaluated 06/22): Calories: 2057-7183 kcal/day (20-22 kcal/kg Admit BW) Protein: 95-115 g protein (1.2-1.5 g/kg IBW) Fluids: Approx. 2000 ml (~1 ml/kcal/day) NUTRITION DIAGNOSIS: 1) Inadequate oral intake related to somnolence, respiratory distress, as evidenced by current NPO status - IMPROVED. INTERVENTION: 1) Diet advance per speech therapy. MONITOR/EVALUATE: PO intake, diet tolerance/advance, labs, POC, GI/nutrition status. Follow per moderate nutrition risk guidelines.
[2016-06-26] MEDS: LORazepam 100 mg/100 mL Drip IV SCH ×2 (14:07)
[2016-06-26] MEDS ORDERED: Haloperidol 5 mg/mL Inj IVPUSH ONE (14:50)
--- NOTE | 2016-06-26 15:07 | NUR ---
Cardiac/Resp/Agitation Tele A flutter rate 124 this morning. MD made aware and ordered Metoprolol at 12.5 mg PO q 6 hrs. Gave first dose-- not effective. Gave an additional 25 mg PO dose. Increased q 6 hr dose to 25 mg. Current HR is 108. Still A flutter. BP stable with this. Amiodarone gtt will continue until current bag done and then Amiodarone PO to start tomorrow. Patient placed on 4 L NC and sats are at 96-99% with that. Lungs are decreased in bases. Patient is oriented to place, name, and year. He is cooperative and follows directions, but severely agitated and restless-- flinging legs, attempting to get OOB, pulling at lines. Restraints remain. MD aware and Seroquel ordered and given. No change in restlessness. Gave 0.5 mg IV Ativan and no change in restlessness. MD then ordered 5 mg Haldol and it was given. Currently patient is sleeping. With that, HR is now in the 90s. Sats remain 98%. Continue to monitor closely.
[2016-06-26] MEDS: Dextrose 5% 0.45% NaCl 1,000 ML IV SCH (16:21)
[2016-06-26] MEDS: Propofol Inj 1,000,000 MCG in IV Premix 1 EACH IV SCH (16:24)
--- NOTE | 2016-06-26 16:55 | NUR ---
Social Work Note: Continued Discharge Planning Data& Assessment: Per MD in morning rounds, pt is medically improving. SW received phone call from Jazzy at the [facility] who requested updated clinicals on pt. SW [facility]. SW to follow up with pt when appropriate. SW to continue to follow. Plan: Pt was extubated yesterday 06/25/2016. SW to follow up with pt when appropriate. Pt eval pending. SW to continue to follow. TAHMINA Miller
--- NOTE | 2016-06-26 18:04 | PROG NOTE ---
[address] [address] PROGRESS NOTE PATIENT: MARÍA JUAREZ : 1955 MR#: [id number] ADMIT: 06/15/2016 JOB ID: [id number] DATE: 06/26/2016 PULMONARY PROGRESS NOTE: The patient is a 61-year-old man admitted to the hospital with alcohol withdrawal, respiratory failure. INTERVAL HISTORY: He was extubated yesterday and is still having some problems with delirium, but he is on minimal oxygen. REVIEW OF SYSTEMS: No complaints. Seems slightly confused, so difficult to obtain. PHYSICAL EXAMINATION: Vital signs reviewed. Temperature 36.7, pulse 124, respirations 22, BP 121/97, sats 96% on 4 L nasal cannula. General: Somewhat confused. Chest: Clear to auscultation. LABORATORIES: Reviewed. ASSESSMENT AND RECOMMENDATIONS: 1. Acute hypoxic respiratory failure--extubated June 25, on 4 L nasal cannula currently. 2. Alcohol withdrawal, resolved. 3. Acute delirium/encephalopathy. 4. Cardiomyopathy with ejection fraction 30%-- ? alcoholic. 5. Atrial fibrillation with rapid ventricular response. This 61-year-old man was extubated yesterday and is slowly improving from a respiratory standpoint. He is still getting IV Lasix for diuresis. His current issues primarily seem to be AFib which is rate controlled on amiodarone, and Cardiology is following for that. In addition, he has cardiomyopathy of unclear etiology, although this could be alcohol related as well. Also, this is being managed by primary team and Cardiology. Pulmonary Service is going to sign off. We are available for questions, if any.
[2016-06-27] VITALS (13 sets, daily range): BP systolic 91–114; BP diastolic 61–82; PULSE 97–124; RESP 15–24; O2SAT 87–96
--- NOTE | 2016-06-27 03:32 | NUR ---
neuro/tele pt asleep/sedated from haldol dose given on day shift until approx 2329, unable to give pt his 2029 meds, at 2330 pt pulling at sheet and kicking legs over side of bed and stating he was ready to go, even though pt unpredictable in some of his behavior he was able to state he was in the hospital in [place], the year and his name, pt also requesting to watch espn on tv, at wv pt's hr 120-130, afib/flutter, pt given his 2029 lopressor and seroquel at [place], pt tolerated meds well in applesauce and able to eat approx 1/3 of his dinner with assistance, no choking noted with nectar thick liquids, hr 90-110 after lopressor, bp 85-110/60-70 t/o shift, pt asleep again until aprox 0300,pt again restless and pulling at linens, pt changed two times during shift for being incontinent of liquid stool, pt turned as able q2hrs even though pt kicks his pillow off of then bed, scd's on, kurtis uop per f/c, ivf per orders at 50ml/hr pt denies n/v denies sob, denies cp denies pain, see ccu flow sheet, continue close monitoring, wrist restraints on per md order, plan:psych consult, physical therapy tomorrow,
[2016-06-27 04:52] LABS: Mean Corpuscular Hemoglobin 31.1 pg (27.0-35.0); Mean Corpuscular Volume 96.6 fL (81-100)
[2016-06-27 05:54] LABS: Phosphorus 4.3 mg/dL (2.5-4.9)
--- NOTE | 2016-06-27 07:54 | PCM.PNMED ---
Subjective Date of Service Jun 27, 2016 Subjective Patient without complaints of chest pain, dyspnea, nausea vomiting. Once to get out of bed. Denies suicidal ideation Exam Vital Signs Vital Sign - Last Date Time Temp Pulse Resp B/P Pulse Ox O2 Delivery O2 Flow Rate FiO2 06/27/16 03:52 Supplement Oxygen 06/27/16 03:50 105 06/27/16 03:50 36.5 15 103/81 96 4.00 06/26/16 08:00 30 Intake and Output 06/26/16 06/26/16 06/27/16 Cumulative From/Thru 15:00 23:00 07:00 06/15/16 18:05 - 06/27/16 04:48 Intake Total 1048 ml 1175 ml 45221 ml Output Total 1200 ml 300 ml 05065 ml Balance -152 ml 875 ml 47891 ml Intake Oral 200 ml 600 ml 1270 ml IV Total 848 ml 575 ml 58618 ml Tube Feeding 4015 ml Tube Irrigant 1020 ml Output Urine Total 1200 ml 300 ml 66479 ml Gastric Drainage Total 1300 ml # Bowel Movements 3 8 Exam Gen.-White male wide awake and responsive, well-nourished Eyes-eyes open, pupils equal, conjunctiva clear ENT- ears normal, nose normal Neck- supple/trach midline CVS- RRR no murmur or gallop, generalized edema Lungs CTA no accessory muscle usage no wheezes or rhonchi no evidence of respiratory distress GI- NABS/NT soft Musculoskeletal: Patient in restraints extremities moving 4 no obvious deformity Neuro- cranial nerves II through XII intact to gross examination, nonfocal Skin- warm and dry, no rashes/lesions/wounds noted, his facial skin is dry and peeling Psych - patient is pleasant and appropriate, seems a bit flat and poorly verbal Lab and Diagnostics Result Diagram: 06/27/16 0420 06/27/16 0420 12-lead ECG A. fib/flutter QTc calculated to be around 400 ms 06/25 concurrently/personally reviewed by Marely Assessment & Plan 61-year-old male 06/15 admitted suicide attempt. History of alcohol and polysubstance use. Intubated a few days later has been ventilated since then poorly responsive sedated having issues with rate control with atrial fibrillation until he was started on amiodarone drip -06/27 stopping amiodarone drip. Starting by mouth amiodarone and metoprolol. Attempting to begin mobilizing this patient in anticipation of potential discharge. Where that will be too is not entirely clear. A flutter/fib, acute/chronic. amiodarone drip started 06/21 cardiology consult 06/21, rate was improved request cards input on weaning 06/26 adding metoprolol 06/26 acute systolic heart failure. EF Patient was about 6 kg greater than his admission weight 06/21, down to 102 kg 2 kg greater than admission weight 06/23. prolonged QT-when actually examined is not so prolonged. Therefore we are starting SSRIs and atypical antipsychotics it is closer to 400 ms when the EKG is examined. Depression /Suicidal ideation and attempt., Lexapro/Seroquel started 06/25 calling for psychiatry consult/evaluation Dr Garcia 06/27 who will see patient once the shunt is been cleared by social work and is also medically clear. Weakness- PTE bowel begin mobilizing getting patient out of bed 06/26 Acute metabolic encephalopathy, speech swallow/cognitive eval 06/26 Hypotension- pressors discontinued 06/25 supplemented with albumin low/narrow pulse pressure is related to underlying cardiomyopathy of uncertain etiology. SBP 120-130s 06/26 Constipation-bowel regimen of milk of magnesia and Dulcolax with fleets enemas beginning + BM sml 06/25, resolved multiple BMs -discontinuing aggressive bowel regimen 06/26 Acute respiratory failure -Intubated for airway protection and progressive pulmonary edema. Patient successfully diuresed and Extubated 06/25 Severe ETOH withdrawal, acute . POA.- last drink 06/15. delirium tremens should be over, Acid base/anabolic disorders. He has had a persistent metabolic acidosis and respiratory alkalosis. hypoglycemia. BS [id number] 06/22 current regimen no changes Probable aspiration pneumonia. POA. We will continue Unasyn 06/19- 06/24 atleast (5 days). Repeat blood cultures today. All microbiologic data has been negative so far 06/22 Prophylaxis-DVT with SCDs/subcutaneous heparin, GI Disposition-patient full code from home 1`. DVT prophylaxis with subcutaneous heparin. Pain Evaluation: Adequate Pain Control Resuscitation Status: CPR: Attempt Resuscitation Pain Evaluation: Adequate Pain Control VTE Mechanical Devices: Intermittant Pneumatic CD Resuscitation Status: CPR: Attempt Resuscitation Medically complex patient high-risk for complications VTE Mechanical Devices: Intermittant Pneumatic CD Nagi Yap MD Jun 27, 2016 07:54
[2016-06-27] MEDS: Magnesium Hydroxide 10 mL Oral Concentration PO SCH ×3 (08:06→20:28)
[2016-06-27] MEDS: Multivitamins w/Minerals 5 mL Liquid Supplement PO SCH (08:18)
--- NOTE | 2016-06-27 09:20 | DRSVH ---
PROCEDURE: X-RAY CHEST, TWO VIEWS ([id number]) INDICATIONS: ongoing hypoxemia TECHNIQUE: 2 views of the chest were acquired. COMPARISON: 06/24/2016 FINDINGS: Surgical changes and devices: The endotracheal and nasogastric tubes have been removed. Left-sided PI CC line remains. Lungs and pleura: No pneumothorax. Left lower lobe consolidation is markedly improved, no longer eff acing the aorta and diaphragm. There still is a mild degree of perihilar infiltrate. Small right pleu ral effusion remains. Mediastinum: Mediastinal contours are normal. Heart size is normal. Bones and chest wall: No suspicious bony abnormalities. Soft tissues appear unremarkable. IMPRESSION: Marked improvement since last exam, mild left perihilar pneumonia remaining. Dictated by: Tigre Jones M.D. on 06/27/2016 at 9:16 Approved by: Tigre Jones M.D. on 06/27/2016 at 9:19
[2016-06-27] MEDS: Heparin 5,000 Unit/mL Inj SUBQ SCH ×2 (09:47→18:30)
[2016-06-27] MEDS: Levalbuterol 1.25 mg/0.5mL Inhalation Solution NEB SCH ×3 (10:18→20:50)
--- NOTE | 2016-06-27 10:33 | NUR ---
Evaluation completed. Please go to "Notes" then click on "Assessments and Notes" (bottom left corner of screen). Then select appropriate discipline tab on top of screen.
[2016-06-27] MEDS: Fluticasone-Salmeterol 500-50 Inhaler INHALATION SCH ×2 (10:46→20:30)
[2016-06-27] MEDS: Tiotropium 18mcg/Cap 5 Capsule Inhaler Kit INHALATION SCH (10:46)
[2016-06-27] MEDS: Dextrose 5% 0.45% NaCl 1,000 ML IV SCH (12:44)
--- NOTE | 2016-06-27 14:49 | NUR ---
Mentation/ Diet/GI / Activity: P: Patient was impulsive and forgetful at beginning of shift in soft wrist restraints I: Patient is now A&O X3 and understands he is in the hospital. Restraints removed at 1100 this morning. Diet was advanced to puree with thin liquids, meds in sauce. E: Pt is drowsy, but A&O. Cooperative with care. Tolerating diet without report of N/V. Loose BM x3, Milk of Magnesia held this morning. Pt was able to sit up in WC to go for chest x-ray this morning, got up to [facility] with 2PA and worked with PT.
--- NOTE | 2016-06-27 16:18 | NUR ---
Social Work Note: Mental Health Assessment/CD Assessment Reason for Visit: Per ED notes, pt presented to the ED explaining he had injected heroin the day before in attempt to end his life, however, pt had to be admitted for further medical evaluation and treatment. Pt was admitted on 06/15/2016 for AFIB with RVR. Pt required intubation and was extubated on 06/25/2016. SW met with pt at bedside to discuss safety planning and discharge planning. SW role explained. Per H&P pt has health dx including PTSD and Bipolar Disorder. Current Situation/Precipitating Events: Pt explained that last week he began to feel suicidal after thinking about his fiancee who 9 years ago, who was "the love of my life." Pt explained that this combined with the rent for his apt. being due and having difficulty obtaining his medications as advised, he began to feel hopeless. Pt denies any current suicidal ideation at this time. When asked what has changed for him, pt explained that after he was extubated, pt's daughter and family came to his bedside and emphasized how much they loved him. Pt reflected on the fact that this is the sickest he has ever been. Current Mental Status/ADL's: Pt is a white 61 year old male who is oriented to person, place and situation. Pt appears extremely disheveled and a little thin. Pt reports his mood as "a 7 on a scale from 1-10." SW clarified that 10 would be the happiest and 0 would be the saddest on pt's mood scale. SW asked what number he was last week when he injected the heroin, pt stated " a 2." Pt speech is normal but a little mumbled (pt still has a sore throat from intubation). Pt explained he was having difficulty swallowing for the last month and in result thinks he has lost about 5-10lbs, but not because he was not hungry. Pt stated his sleep has been "not too bad." Pt denies any current suicidal ideation, thoughts of harming himself or others. Pt denies any visual, auditory, olfactory or tactile hallucinations. Pt does not appear to be responding to any internal or external stimuli. Psychiatric Hx/Assault/Violence: MIS check completed with [facility]. Pt is not currently enrolled in any services. Pt has had one involuntary hospitalization at [facility] in 2007. No other recent activity. Chemical Dependency : Pt reports consuming approximately 4L of Vodka Daily. Pt last used meth one month ago. Per ED documentation, pt was positive for meth and amphetamines Pt also was "86H" for alcohol. Pt has a long hx of inpt and outpt rehab, pt was accepting of CD resources to bring home with him but declined SW making any phone calls or appt's on his behalf. Disposition/Plan: Pt denies any current SI, thoughts of harming himself or others. Pt was accepting of Mental health resources. SW highlighted crisis respites phone number. Pt participated in safety planning and agreed to call the crisis line number, call his daughter or present to the ED if he feels unsafe if he begins to feel suicidal again. SW to continue to check in with pt for SI. When pt becomes medically clear, SW to confirm pt is still not experiencing any suicidal ideation and confirm safety plan. Pt denies any other needs at this time. SW to continue to follow. TAHMINA Miller
--- NOTE | 2016-06-27 18:31 | NUR ---
Transfer to [facility] Report received from Taryn Badillo RN. Pt resting comfortably. BP 86/69. SPO2 mid 90s on 3L NC. Pt states that he has no pain. Tele Afib 100s. Pt has been incontinent of stool, with a total of 4 loose stools over shift. Pt is alert and oriented x3. Cooperating with care.
[2016-06-28] VITALS (7 sets, daily range): BP systolic 91–105; BP diastolic 68–78; PULSE 97–112; RESP 16–21; O2SAT 92–97
[2016-06-28] MEDS: Heparin 5,000 Unit/mL Inj SUBQ SCH ×3 (00:59→17:21)
[2016-06-28] MEDS: Magnesium Hydroxide 10 mL Oral Concentration PO SCH ×4 (01:00→19:54)
--- NOTE | 2016-06-28 04:54 | NUR ---
Oxygen Pt is on 4-5L O2 NC. Pt occasionally takes off in sleep and desats to low 80's with lowest observed of 74% on RA. Pt is restless in bed and consistently tangles/pulls of leads and lines, despite reorientation. Continuing to monitor closely.
[2016-06-28] MEDS: Fluticasone-Salmeterol 500-50 Inhaler INHALATION SCH ×2 (08:54→20:04)
[2016-06-28] MEDS: Tiotropium 18mcg/Cap 5 Capsule Inhaler Kit INHALATION SCH (08:55)
[2016-06-28] MEDS: Multivitamins w/Minerals 5 mL Liquid Supplement PO SCH (08:58)
--- NOTE | 2016-06-28 10:29 | PCM.PNMED ---
Subjective Date of Service Jun 28, 2016 Subjective Patient is doing well. Minimal cough or shortness of breath. Denies any chest pain. No abdominal pain, nausea vomiting or diarrhea. No difficulty with urination. Exam Vital Signs Vital Sign - Last Date Time Temp Pulse Resp B/P Pulse Ox O2 Delivery O2 Flow Rate FiO2 06/28/16 09:14 Supplement Oxygen 06/28/16 08:51 36.3 102 21 101/76 93 4.00 06/26/16 08:00 30 Intake and Output 06/27/16 06/27/16 06/28/16 Cumulative From/Thru 15:00 23:00 07:00 06/15/16 18:05 - 06/28/16 06:01 Intake Total 1188 ml 1351 ml 92910 ml Output Total 250 ml 600 ml 86646 ml Balance 938 ml 751 ml 50439 ml Intake Oral 600 ml 790 ml 2660 ml IV Total 588 ml 561 ml 83981 ml Tube Feeding 4015 ml Tube Irrigant 1020 ml Output Urine Total 250 ml 600 ml 84134 ml Gastric Drainage Total 1300 ml # Bowel Movements 2 1 11 IVs and Medications IV Fluids Alert oriented 3, fluent speech Anicteric sclera Lungs are clear normal effort. Heart is regular without murmur gallop or rub heard Abdomen is soft. Extremities are free of edema good pedal and radial pulses. Cranial nerves are intact. Skin is free of rash or lesions. Medications Reviewed: Medications were reviewed in detail Lab and Diagnostics Result Diagram: 06/27/1641906/27/16 042 12-lead ECG A. fib/flutter QTc calculated to be around 400 ms 06/25 concurrently/[facility] & Plan 61-year-old male 06/15 admitted suicide attempt. History of alcohol and polysubstance use. Intubated a few days later has been ventilated since then poorly responsive sedated having issues with rate control with atrial fibrillation until he was started on amiodarone drip. A flutter/fib, acute/chronic. The patient appears to be rate controlled and will continue amiodarone at 200 daily metoprolol at 50 mg 3 times a day. acute systolic heart failure, POA. This is improved with diuresis.. EF Patient was about 6 kg greater than his admission weight 06/21, down to 102 kg 2 kg greater than admission weight 06/23. Depression /Suicidal ideation and attempt., Lexapro/Seroquel started 06/25 calling for psychiatry consult/evaluation Dr Garcia The patient will require mental health reevaluation prior to discharge. Weakness- PTE bowel begin mobilizing getting patient out of bed 06/26 Acute metabolic encephalopathy, resolved Hypotension-resolved Constipation-bowel regimen of milk of magnesia and Dulcolax with fleets enemas beginning + BM sml 06/25, resolved multiple BMs -discontinuing aggressive bowel regimen 06/26 Acute respiratory failure -resolved Severe ETOH withdrawal, acute . POA.-Resolved Acid base/anabolic disorders. Improved hypoglycemia. Resolved Probable aspiration pneumonia. POA. Resolved Prophylaxis-DVT with SCDs/subcutaneous heparin, GI Disposition-patient full code from home Patient has significant clinical course. Involving both aspiration pneumonia as well as acute on chronic systolic heart failure requiring mechanical ventilation and sedation. He is improved but this did happen in context of a suicidal act. This point we will begin discharge planning and most importantly reassess him with mental health reevaluation. Pain Evaluation: Adequate Pain Control VTE Mechanical Devices: Intermittant Pneumatic CD Resuscitation Status: CPR: Attempt Resuscitation Time spent 30 minutes Jesse Kay MD Jun 28, 2016 10:29
[2016-06-28] MEDS: Levalbuterol 1.25 mg/0.5mL Inhalation Solution NEB SCH ×3 (10:30→20:30)
--- NOTE | 2016-06-28 15:36 | NUR ---
Oxygen/Activity/Valdes Pt was found to have removed his NC. Upon assessment SAO2 94% on RA. Will continue to monitor. Pt up to chair with PT, 1PA tolerating activity well. Valdes Catheter was dc'd, pt urinating in BSC, using call light appropriately. Pt continues to tolerate diet, speech evaluation requested to evaluate if pt's diet may be advanced. Pt's mentation continues to improve, he is cooperative with all cares.
[2016-06-29] MEDS: Heparin 5,000 Unit/mL Inj SUBQ SCH ×3 (00:34→16:30)
[2016-06-29] MEDS: Magnesium Hydroxide 10 mL Oral Concentration PO SCH ×5 (02:30→21:05)
[2016-06-29 04:25] VITALS: BP 124/72; PULSE 102; RESP 18; O2SAT 94
--- NOTE | 2016-06-29 05:57 | NUR ---
Behavior/Mentation pt pleasant and cooperative, able to make needs known, however has some word searching and mumbled speech. Pt reports feeling "queezy". Zofran IV given x1, effective.
[2016-06-29] MEDS ORDERED: Albuterol 1.25 mg/3 mL Inhalation Solution ONE (08:13)
[2016-06-29 08:28] VITALS: PULSE 102; RESP 16; O2SAT 92
[2016-06-29] MEDS: Levalbuterol 1.25 mg/0.5mL Inhalation Solution NEB SCH ×3 (08:28→20:30)
[2016-06-29 08:30] VITALS: BP 128/82; PULSE 116; RESP 16; O2SAT 97
[2016-06-29] MEDS: Tiotropium 18mcg/Cap 5 Capsule Inhaler Kit INHALATION SCH (08:30)
[2016-06-29] MEDS: Multivitamins w/Minerals 5 mL Liquid Supplement PO SCH (09:53)
--- NOTE | 2016-06-29 14:18 | NUR ---
NUTRITION FOLLOW-UP: ASSESS: 61 YO m admitted with A-fib w/ RVR. Pt was intubated but was able to be extubated on 06/25. ST was able to advance diet to general today. PMHx: Polysubstance abuse, schizoaffective disorder, hepatitis C, suicide ideation/attempt. DIET: General. No po yet on new diet texture, po 100% on pureed prior to diet adv. MEDICATIONS: Reviewed. LABS: Reviewed. GI: BM x 3 (06/28) ANTHROPOMETRICS: Current Wt: 99.0 kg, Admit weight: 98.8 kg (Admit BMI 30.4 kg/m2), IBW: 78.2 kg ESTIMATED NEEDS (Re-evaluated 06/22): Calories: 8018-4223 kcal/day (20-22 kcal/kg Admit BW) Protein: 95-115 g protein (1.2-1.5 g/kg IBW) NUTRITION DIAGNOSIS: 1) Inadequate oral intake related to somnolence, respiratory distress, as evidenced by current NPO status - RESOLVED. INTERVENTION: 1) Continue current diet at this time. MONITOR/EVALUATE: PO intake, diet tolerance, labs, GI/nutrition status. Follow per low nutrition risk guidelines.
--- NOTE | 2016-06-29 15:45 | PCM.PNMED ---
Subjective Date of Service Jun 29, 2016 Subjective He states he is feeling better. He denies any rhinorrhea or cough. No dyspnea. No chest pain or palpitations. No nausea or diarrhea. No abdominal pain. Exam Vital Signs Vital Sign - Last Date Time Temp Pulse Resp B/P Pulse Ox O2 Delivery O2 Flow Rate FiO2 06/29/16 12:37 Room Air 06/29/16 08:30 36.9 116 16 128/82 97 06/28/16 08:51 4.00 06/26/16 08:00 30 Intake and Output 06/28/16 06/28/16 06/29/16 Cumulative From/Thru 15:00 23:00 07:00 06/15/16 18:05 - 06/29/16 05:12 Intake Total 1026 ml 600 ml 02477 ml Output Total 350 ml 1 ml 90381 ml Balance 676 ml 599 ml 83832 ml Intake Oral 680 ml 600 ml 3940 ml IV Total 346 ml 19618 ml Tube Feeding 4015 ml Tube Irrigant 1020 ml Output Urine Total 350 ml 1 ml 60842 ml Gastric Drainage Total 1300 ml # Voids 2 2 # Bowel Movements 2 0 13 Exam Alert oriented 3, slow to respond. Fluent speech. Anicteric sclera. Neck supple. Lungs are clear, normal effort. Heart irregular without murmur gallop or rub. Abdomen is soft nontender. Extremities are free of edema good pedal pulses IVs and Medications Medications Reviewed: Medications were reviewed in detail Lab and Diagnostics Result Diagram: 06/27/1641906/27/16419 12-lead ECG A. fib/flutter QTc calculated to be around 400 ms 06/25 [facility] & Plan 61-year-old male 06/15 admitted suicide attempt. History of alcohol and polysubstance use. Intubated a few days later has been ventilated since then poorly responsive sedated having issues with rate control with atrial fibrillation until he was started on amiodarone drip. 1. A flutter/fib, acute/chronic. The patient appears to be rate controlled and will continue amiodarone at 200 daily metoprolol at 50 mg 3 times a day. 2. acute systolic heart failure, POA. This is improved with diuresis.. EF Patient was about 6 kg greater than his admission weight 06/21, down to 102 kg 2 kg greater than admission weight 06/23. No change to current medical regimen. 3. Depression /Suicidal ideation and attempt., Lexapro/Seroquel started calling for psychiatry consult/evaluation Dr Garcia The patient will require mental health reevaluation prior to discharge. 4. Weakness- PTE bowel begin mobilizing getting patient out of bed 06/26 5. Acute metabolic encephalopathy, resolved 6. Hypotension-resolved 7. Acute respiratory failure -resolved 8. Severe ETOH withdrawal, acute . POA.-Resolved 9. Acid base/anabolic disorders. Improved 10. Probable aspiration pneumonia. POA. Resolved Prophylaxis-DVT with SCDs/subcutaneous heparin, GI Disposition-patient full code from home Pain Evaluation: Adequate Pain Control VTE Mechanical Devices: Intermittant Pneumatic CD Resuscitation Status: CPR: Attempt Resuscitation Time spent 30 minutes Jesse Kay MD Jun 29, 2016 15:45
--- NOTE | 2016-06-29 16:01 | NUR ---
unable to scan pt medication due to pt not wearing arm band. will inform RT hotel manager and unit vault manager.
--- NOTE | 2016-06-29 16:03 | NUR ---
unable to scan pt medication due to no arm band.
[2016-06-29 16:04] VITALS: PULSE 88; RESP 20; O2SAT 92
[2016-06-29 16:33] VITALS: BP 94/70; PULSE 83; RESP 16; O2SAT 96
--- NOTE | 2016-06-29 18:26 | NUR ---
Diet Advanced/Mentation Pt's diet advanced to general, with thin liquids ok. Appears to be tolerating it without difficulty. No observed issues swallowing. No complaints of nausea. Pt appears to have difficulty with short term memory. Has repeatedly asked the same question and then again will ask a few minutes later. He is oriented to situation and place but not to time.
[2016-06-29] MEDS: Fluticasone-Salmeterol 500-50 Inhaler INHALATION SCH ×2 (20:02→21:08)
[2016-06-29 20:51] VITALS: BP 99/81; PULSE 95; RESP 18; O2SAT 95
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
[2016-06-30 00:58] VITALS: BP 128/74; PULSE 92; RESP 18; O2SAT 98
[2016-06-30] MEDS: Heparin 5,000 Unit/mL Inj SUBQ SCH ×2 (01:03→08:18)
[2016-06-30] MEDS: Magnesium Hydroxide 10 mL Oral Concentration PO SCH ×2 (02:30→08:01)
[2016-06-30 04:55] VITALS: BP 110/79; PULSE 70; RESP 16; O2SAT 94
--- NOTE | 2016-06-30 05:17 | NUR ---
Pain pt c/o 12/04 right leg pain x2. scheduled OxyContin and PRN Roxicodone medication given for pain which was effective. pt A&O X4. CMS intact. pt on 2L O2 via NC and CPOX with SPO2 in mid . wound vac draining brownish in color drainage. will continue to monitor. Addendum: 06/30/16 at 0526 by CLAUDIA AGUILAR RN WRONG Pt.
--- NOTE | 2016-06-30 05:30 | NUR ---
Activity/Restless night pt ambulated x1 in the hallway with SBA, and independent in room. gait steady. pt denies SOB and no s/sx of respiratory distress with activity while ambulating in the hallway. pt state he is unable to fall in sleep and stay sleep, and requested medication to help him with sleep. paged night hospitalist and administered 5mg melatonin. pt slept for 3.5 hrs. no c/o pain. VSS. Will continue to monitor.
[2016-06-30 08:13] VITALS: BP 121/81; PULSE 111; RESP 18; O2SAT 97
[2016-06-30] MEDS: Multivitamins w/Minerals 5 mL Liquid Supplement PO SCH (08:17)
[2016-06-30] MEDS: Levalbuterol 1.25 mg/0.5mL Inhalation Solution NEB SCH (08:30)
[2016-06-30 10:12] VITALS: PULSE 110; RESP 16; O2SAT 93
--- NOTE | 2016-06-30 10:14 | NUR ---
Pt has no wrist band, unable to scan.
--- NOTE | 2016-06-30 10:52 | PCM.DIMED ---
Discharge Instructions Date of Service Jun 30, 2016 Dates of Hospitalization Jun 15, 2016 at 22:29 Diet No restrictions Activity No restrictions Call your provider Other (Depressed mood or suicidal thoughts) Patient Instructions Follow-up with PCP in: 2 weeks Additional Information See your mental health care provider as soon as possible, ideally within one week, sooner if worsening depression or suicidal thoughts. Tracie Hull MD Jun 30, 2016 10:52
[2016-06-30] MEDS ORDERED: ESCI10TA52 PO (10:58)
[2016-06-30] MEDS ORDERED: AMIO200T PO (10:58)
[2016-06-30] MEDS ORDERED: FLUT1DIS5 INHALATION (10:58)
[2016-06-30] MEDS ORDERED: QUET25TA73 PO (10:58)
[2016-06-30] MEDS ORDERED: TIOT18CA3 INHALATION (10:59)
--- NOTE | 2016-06-30 11:17 | PCM.DC.MED ---
Discharge Summary Date of Service Jun 30, 2016 Dates of Hospitalization Date of Hospital Admission Jun 15, 2016 at 22:29 Date of Discharge: Jun 30, 2016 Providers: Admitting Physician: Melodie Osborne DO Primary Care Physician: Malik,[facility] Attending Physician: Melodie Osborne DO Diagnosis at Time of Discharge Diagnosis at Time of Discharge 1. A flutter/fib, acute/chronic 2. acute systolic heart failure, POA. 3. Depression /Suicidal ideation and attempt., 4. Weakness- 5. Acute metabolic encephalopathy, Procedures ECG 12 Lead A. fib/flutter QTc calculated to be around 400 ms 06/25 concurrently/personally reviewed by [facility] Course 61-year-old male 06/15 admitted suicide attempt. History of alcohol and polysubstance use. Intubated a few days later and ventilated because poorly responsive, sedated and having issues with rate control with atrial fibrillation which improved when he was started on amiodarone drip. 1. A flutter/fib, acute/chronic. The patient appears to be rate controlled and will continue amiodarone at 200 daily metoprolol at 50 mg 3 times a day. HR goes up occasionally so can tolerate his outpatient dose of Metoprolol which was 100 mg BID 2. acute systolic heart failure, POA. This is improved with diuresis.. 3. Depression /Suicidal ideation and attempt., Lexapro/Seroquel started 06/25 ,psychiatry consult/evaluation Dr Garcia done Jun 30 who did not change his medications and felt he did not need inpatient psychiatric admission and that he was no longer a risk to himself. 4. Weakness- PT, began mobilizing getting patient out of bed 06/26, on the day of discharge was walking in the room without difficulty, getting ready for shower. 5. Acute metabolic encephalopathy, resolved 6. Hypotension-resolved 7. Acute respiratory failure -resolved 8. Severe ETOH withdrawal, acute . POA.-Resolved 9. Acid base/anabolic disorders. Improved 10. Probable aspiration pneumonia. POA. Resolved Prophylaxis-DVT with SCDs/subcutaneous heparin, GI Disposition-patient full code from home Exam Vital Signs (Last) Date Time Temp Pulse Resp B/P Pulse Ox O2 Delivery O2 Flow Rate FiO2 06/30/16 10:12 110 16 93 Room Air 06/30/16 08:13 36.9 121/81 06/28/16 08:51 4.00 06/26/16 08:00 30 Exam Alert, active, cheerful. Denies depressed mood or suicidal thoughts. Plans to stay with friends for a few days then go back to his daughter's in [place] [facility] Heart: reg Lungs: clear Test 06/15/16 18:15 06/16/16 08:52 06/19/16 04:00 06/19/16 12:25 Hold [place] Top Tube Received (Received) Alcohol, Quantitative 86mg/dL (0-10) Urine Opiates Screen Negative Urine Methadone Screen Negative Urine Barbiturates Screen Negative Urine Amphetamines Screen Positive Urine Benzodiazepines Screen Positive Urine Cocaine Metabolite Screen Negative Urine Cannabinoids Screen Negative Triglycerides Level 107mg/dL (0-149) Ammonia < 17ug/dL (18-53) Test 06/20/16 05:25 06/21/16 05:25 06/21/16 09:10 06/22/16 14:54 Procalcitonin < 0.05ng/mL (See Comment) Osmolality 299 (275-300) Prealbumin 13mg/dL (20-40) Salicylates Level 3.0ug/mL (30-250) Acetaminophen Level 15.0ug/mL Rx (10-25) Urine Color Yellow (YELLOW) Urine Appearance Hazy (CLEAR,HAZY) Urine pH 6.0 (5.0-8.0) Urine Specific [place] 1.030 (1.003-1.035) Urine Protein Tracemg/dL (NEG,TRACE) Urine Glucose (UA) Negativemg/dL (NEGATIVE) Urine Ketones Negativemg/dL (NEGATIVE) Urine Occult Blood Negative (NEGATIVE) Urine Nitrite Negative (NEGATIVE) Urine Bilirubin Negative (NEGATIVE) Urine Urobilinogen Normalmg/dL (NORMAL) Urine Leukocyte Esterase Negative (NEGATIVE) Urine RBC 0-2/hpf (0-2) Urine WBC 0-5/hpf (0-5) Urine Epithelial Cells Occasional/hpf (NONE-MOD) Urine Crystals Uric acid crystals (NONE Urine Bacteria None/hpf (NONE-FEW) Urine Hyaline Casts Occasional/lpf (NONE) Urine Granular Casts None seen (NONE SEEN) Urine Waxy Casts None seen (NONE SEEN) Urine Red Blood Cell Casts None seen (NONE SEEN) Urine White Blood Cell Casts None seen (NONE SEEN) Urine Mucus Present (None Seen) Urine Trichomonas None seen (NONE SEEN) Urine Yeast None (NONE SEEN) Urinalysis Comment Amorphous sediment Urine Culture Reflexed Not indicated Lactic Acid Level 0.8mmol/L (0.4-2.0) Total Creatine Kinase 14U/L (21-232) Test 06/23/16 05:50 06/25/16 03:50 06/27/16 04:20 Hold Purple Top Tube Received (Received) Hold Blue Top Tube Received (Received) Hold [place] Top Tube Received (Received) Neutrophils (%) (Auto) 53.4% (40-74) Lymphocytes (%) (Auto) 28.1% (14-46) Monocytes (%) (Auto) 11.4% (4-12) Eosinophils (%) (Auto) 6.3% (0-5) Basophils (%) (Auto) 0.5% (0-3) Troponin T 0.010ug/L (0.0-0.011) Pro-B-Type Natriuretic Peptide 948.8pg/mL (0-210) White Blood Count 8.6th/mm3 (3.8-10.1) Red Blood Count 3.79mil/mm3 (4.40-5.80) Hemoglobin 11.8g/dL (13.8-17.2) Hematocrit 36.6% (41.0-50.0) Mean Corpuscular Volume 96.6fL (81-100) Mean Corpuscular Hemoglobin 31.1pg (27.0-35.0) Mean Corpuscular Hemoglobin Concent 32.2% (32.0-37.0) Red Cell Distribution Width 13.5% (12.3-15.4) Platelet Count 161bil/L (150-400) Sodium Level 139mEq/L (134-144) Potassium Level 4.0mEq/L (3.5-5.2) Chloride Level 97mEq/L (97-108) Carbon Dioxide Level 31mmol/L (18-29) Blood Urea Nitrogen 29mg/dL (8-27) Creatinine 1.06mg/dL (0.76-1.27) Estimat Glomerular Filtration Rate 76mL/min (>59) Glucose Level 93mg/dL (60-99) Calcium Level 9.0mg/dL (8.5-10.1) Phosphorus Level 4.3mg/dL (2.5-4.9) Magnesium Level 2.0mg/dL (1.6-2.6) Total Bilirubin 0.6mg/dL (0.0-1.2) Aspartate Amino Transf (AST/SGOT) 14U/L (0-50) Alanine Aminotransferase (ALT/SGPT) 6U/L (0-44) Alkaline Phosphatase 48U/L (25-160) Total Protein 5.8g/dL (6.4-8.4) Albumin 3.7g/dL (3.4-5.0) Discharge Medications Discharge Medications Amiodarone (Amiodarone) 200 Mg Tablet 200 MG PO DAILY Prescribed by: RANDY CLOUD MD Aspirin Chew (Aspirin Chew) 81 Mg Chew 325 MG PO DAILY Prescribed by: VINNY TINOCO MD Escitalopram Oxalate (Escitalopram Oxalate) 10 Mg Tablet 10 MG PO DAILY Prescribed by: RANDY CLUOD MD Fluticasone/Salmeterol (Advair 500-50 Diskus) 1 Each Disk.w.dev 1 PUFF INHALATION BID Prescribed by: RANDY CLOUD MD Metoprolol Succinate ER (Metoprolol Succinate ER) 50 Mg Tab.er.24h 100 MG PO BID Prescribed by: VINNY TINOCO MD Vit#96/Ferrous Fum/FA ( Tablet) 1 Each Tablet 1 TABLET PO DAILY Prescribed by: VINNY TINOCO MD Quetiapine Fumarate (Quetiapine Fumarate) 25 Mg Tablet 25 MG PO Q12 Prescribed by: RANDY CLOUD MD Tiotropium [place] (Spiriva) 18 Mcg Cap.w.dev 18 MCG INHALATION DAILY Prescribed by: RANDY CLOUD MD Followup Plan Discharge Diet: No restrictions Discharge Activity: No restrictions Follow-up with PCP in: 2 weeks Randy Cloud MD Jun 30, 2016 11:16
--- NOTE | 2016-06-30 11:40 | PCM.DC.MED ---
Discharge Summary Date of Service Jun 30, 2016 Dates of Hospitalization Date of Hospital Admission Jun 15, 2016 at 22:29 Date of Discharge: Jun 30, 2016 Providers: Admitting Physician: Melodie sOborne DO Primary Care Physician: Malik,[facility] Attending Physician: Melodie Osborne DO Consultations Dr. Hurd, Cardiology Dr Garcia, Psychiatry Procedures ECG 12 Lead A. fib/flutter QTc calculated to be around 400 ms 06/25 concurrently/personally reviewed by Marely Brief History Patient was started on vasopressors last night due to low BP. Patient was started on low dose Coreg and Lisinopril yesterday for his HFrEF and plus yesterday morning he had BP's around 120/100 mmHg. Hospital Course 61-year-old male 06/15 admitted suicide attempt. History of alcohol and polysubstance use. Intubated a few days later and ventilated because poorly responsive, sedated, and having issues with rate control with atrial fibrillation. Was started on amiodarone drip and rate improved and later able to extubate. 1. A flutter/fib, acute/chronic. Now rate controlled on amiodarone at 200 daily and metoprolol at 50 mg 3 times a day. Occasionally some increase in HR so can tolerate going back to his outpatient dose of metoprolol which was 100 mg BID 2. acute systolic heart failure, POA. This is improved with diuresis.. 3. Depression /Suicidal ideation and attempt., Lexapro/Seroquel started calling for psychiatry consult/evaluation Dr Garcia The patient will require mental health reevaluation prior to discharge. 4. Weakness- PTE bowel begin mobilizing getting patient out of bed 06/26 5. Acute metabolic encephalopathy, resolved 6. Hypotension-resolved 7. Acute respiratory failure -resolved 8. Severe ETOH withdrawal, acute . POA.-Resolved 9. Acid base/anabolic disorders. Improved 10. Probable aspiration pneumonia. POA. Resolved Prophylaxis-DVT with SCDs/subcutaneous heparin, GI Disposition-patient full code from home Exam Vital Signs (Last) Date Time Temp Pulse Resp B/P Pulse Ox O2 Delivery O2 Flow Rate FiO2 06/30/16 10:12 110 16 93 Room Air 06/30/16 08:13 36.9 121/81 2/1/17 08:51 4.00 06/26/16 08:00 30 Test 06/15/16 18:15 06/16/16 08:52 06/19/16 04:00 06/19/16 12:25 Hold [place] Top Tube Received (Received) Alcohol, Quantitative 86mg/dL (0-10) Urine Opiates Screen Negative Urine Methadone Screen Negative Urine Barbiturates Screen Negative Urine Amphetamines Screen Positive Urine Benzodiazepines Screen Positive Urine Cocaine Metabolite Screen Negative Urine Cannabinoids Screen Negative Triglycerides Level 107mg/dL (0-149) Ammonia < 17ug/dL (18-53) Test 06/20/16 05:25 06/21/16 05:25 06/21/16 09:10 06/22/16 14:54 Procalcitonin < 0.05ng/mL (See Comment) Osmolality 299 (275-300) Prealbumin 13mg/dL (20-40) Salicylates Level 3.0ug/mL (30-250) Acetaminophen Level 15.0ug/mL Rx (10-25) Urine Color Yellow (YELLOW) Urine Appearance Hazy (CLEAR,HAZY) Urine pH 6.0 (5.0-8.0) Urine Specific [place] 1.030 (1.003-1.035) Urine Protein Tracemg/dL (NEG,TRACE) Urine Glucose (UA) Negativemg/dL (NEGATIVE) Urine Ketones Negativemg/dL (NEGATIVE) Urine Occult Blood Negative (NEGATIVE) Urine Nitrite Negative (NEGATIVE) Urine Bilirubin Negative (NEGATIVE) Urine Urobilinogen Normalmg/dL (NORMAL) Urine Leukocyte Esterase Negative (NEGATIVE) Urine RBC 0-2/hpf (0-2) Urine WBC 0-5/hpf (0-5) Urine Epithelial Cells Occasional/hpf (NONE-MOD) Urine Crystals Uric acid crystals (NONE Urine Bacteria None/hpf (NONE-FEW) Urine Hyaline Casts Occasional/lpf (NONE) Urine Granular Casts None seen (NONE SEEN) Urine Waxy Casts None seen (NONE SEEN) Urine Red Blood Cell Casts None seen (NONE SEEN) Urine White Blood Cell Casts None seen (NONE SEEN) Urine Mucus Present (None Seen) Urine Trichomonas None seen (NONE SEEN) Urine Yeast None (NONE SEEN) Urinalysis Comment Amorphous sediment Urine Culture Reflexed Not indicated Lactic Acid Level 0.8mmol/L (0.4-2.0) Total Creatine Kinase 14U/L (21-232) Test 06/23/16 05:50 06/25/16 03:50 06/27/16 04:20 Hold Purple Top Tube Received (Received) Hold Blue Top Tube Received (Received) Hold [place] Top Tube Received (Received) Neutrophils (%) (Auto) 53.4% (40-74) Lymphocytes (%) (Auto) 28.1% (14-46) Monocytes (%) (Auto) 11.4% (4-12) Eosinophils (%) (Auto) 6.3% (0-5) Basophils (%) (Auto) 0.5% (0-3) Troponin T 0.010ug/L (0.0-0.011) Pro-B-Type Natriuretic Peptide 948.8pg/mL (0-210) White Blood Count 8.6th/mm3 (3.8-10.1) Red Blood Count 3.79mil/mm3 (4.40-5.80) Hemoglobin 11.8g/dL (13.8-17.2) Hematocrit 36.6% (41.0-50.0) Mean Corpuscular Volume 96.6fL (81-100) Mean Corpuscular Hemoglobin 31.1pg (27.0-35.0) Mean Corpuscular Hemoglobin Concent 32.2% (32.0-37.0) Red Cell Distribution Width 13.5% (12.3-15.4) Platelet Count 161bil/L (150-400) Sodium Level 139mEq/L (134-144) Potassium Level 4.0mEq/L (3.5-5.2) Chloride Level 97mEq/L (97-108) Carbon Dioxide Level 31mmol/L (18-29) Blood Urea Nitrogen 29mg/dL (8-27) Creatinine 1.06mg/dL (0.76-1.27) Estimat Glomerular Filtration Rate 76mL/min (>59) Glucose Level 93mg/dL (60-99) Calcium Level 9.0mg/dL (8.5-10.1) Phosphorus Level 4.3mg/dL (2.5-4.9) Magnesium Level 2.0mg/dL (1.6-2.6) Total Bilirubin 0.6mg/dL (0.0-1.2) Aspartate Amino Transf (AST/SGOT) 14U/L (0-50) Alanine Aminotransferase (ALT/SGPT) 6U/L (0-44) Alkaline Phosphatase 48U/L (25-160) Total Protein 5.8g/dL (6.4-8.4) Albumin 3.7g/dL (3.4-5.0) Discharge Medications Discharge Medications Amiodarone (Amiodarone) 200 Mg Tablet 200 MG PO DAILY Prescribed by: RANDY CLOUD MD Aspirin Chew (Aspirin Chew) 81 Mg Chew 325 MG PO DAILY Prescribed by: VINNY TINOCO MD Escitalopram Oxalate (Escitalopram Oxalate) 10 Mg Tablet 10 MG PO DAILY Prescribed by: RANDY CLOUD MD Fluticasone/Salmeterol (Advair 500-50 Diskus) 1 Each Disk.w.dev 1 PUFF INHALATION BID Prescribed by: RANDY CLOUD MD Metoprolol Succinate ER (Metoprolol Succinate ER) 50 Mg Tab.er.24h 100 MG PO BID Prescribed by: VINNY TINOCO MD Vit#96/Ferrous Fum/FA ( Tablet) 1 Each Tablet 1 TABLET PO DAILY Prescribed by: VINNY TINOCO MD Quetiapine Fumarate (Quetiapine Fumarate) 25 Mg Tablet 25 MG PO Q12 Prescribed by: RANDY CLOUD MD Tiotropium [place] (Spiriva) 18 Mcg Cap.w.dev 18 MCG INHALATION DAILY Prescribed by: RANDY CLOUD MD Followup Plan Discharge Diet: No restrictions Discharge Activity: No restrictions Follow-up with PCP in: 2 weeks Randy Cloud MD Jun 30, 2016 11:40
--- NOTE | 2016-06-30 14:38 | NUR ---
Social Work: Discharge D: Pt discussed in am rounds. Pt is medically stable for discharge. STORE ADMINISTRATIVE ASSISTANT met with pt at bedside to reassess. Pt states that prior to admission he was living alone. He states that he is no longer suicidal and has no thoughts of suicide or self harm. Pt confirms that his safety plan is to either call the Crisis Line, which he produced from his wallet, or his daughter and/or return to the ED for further assessment. Pt states that he is going to go stay with a friend in a motel in [place]. Pt denies that he is going to go use meth or heroin. Pt states he has community resources for CD and MH and that [facility]. Pt states that his daughter cannot come to pick him up until tomorrow. STORE ADMINISTRATIVE ASSISTANT offered pt a one-day bus pass through [facility]. Pt states that he believes he has enough money to pay for a cab and declined bus pass. RN will assist pt with calling a cab once pt's PICC line is discontinued. EMR reviewed, no further needs or barriers identified at this time. A: Pt who is I at baseline and denying suicidal ideation. P: Anticipate pt to discharge today; pt going to stay with a friend in a motel. Pt denies current suicidal ideation, plan or intent. TAHMINA Hinson
--- NOTE | 2016-06-30 14:57 | NUR ---
discharge Pt discharged at 1450. He had his PICC line discontinued prior to discharge. He was given discharge instructions and confirmed understanding of these instructions. He was given prescriptions to take with him. An appointment was made for follow up for him for next week. Education was given to him regarding medications and follow up care. He asked that a taxi be called for him. He was walked downstairs by unit staff where he reported he was going to wait for a taxi. He left in possession of all of his belongings. His plan was to take a taxi to the [facility] where he would be staying with a friend.
== END 2016-06-30 14:50 | disposition other institution (70) | DRG 308 ==
LOC: SED 17:57 → OBSVTOIN 22:29 → PCC 22:29 → CCU 06-17 06:16 → PCC 06-27 14:32 → MOC 06-29 00:13
PROVIDERS: ADMIT Internal Medicine; ATTEND Internal Medicine
PROC: 5A1955Z Respiratory Ventilation, Greater than 96 Consecutive Hours (ICD-10-PCS; principal; 2016-06-17)
PROC: 0BH17EZ Insertion of Endotracheal Airway into Trachea, Via Natural or Artificial Opening (ICD-10-PCS; 2016-06-17)
PROC: 4A033R1 Measurement of Arterial Saturation, Peripheral, Percutaneous Approach (ICD-10-PCS; 2016-06-17)
PROC: 4A00X4Z Measurement of Central Nervous Electrical Activity, External Approach (ICD-10-PCS; 2016-06-25)
DX: I48.2 Chronic atrial fibrillation (principal); I50.23 Acute on chronic systolic (congestive) heart failure; J96.01 Acute respiratory failure with hypoxia; J69.0 Pneumonitis due to inhalation of food and vomit; G92 Toxic encephalopathy; F10.231 Alcohol dependence with withdrawal delirium; E87.2 Acidosis; N17.9 Acute kidney failure, unspecified; R57.9 Shock, unspecified; R45.851 Suicidal ideations; E87.3 Alkalosis; I48.92 Unspecified atrial flutter; G31.2 Degeneration of nervous system due to alcohol; F11.10 Opioid abuse, uncomplicated; Y90.4 Blood alcohol level of 80-99 mg/100 ml; Z79.82 Long term (current) use of aspirin; F17.200 Nicotine dependence, unspecified, uncomplicated; Z78.1 Physical restraint status; K59.00 Constipation, unspecified; F31.9 Bipolar disorder, unspecified; F15.90 Other stimulant use, unspecified, uncomplicated; F09 Unspecified mental disorder due to known physiological condition

== ENCOUNTER 2017-02-03 17:25 | Emergency (ER) | payer MEDICARE, OTHER ==
[~2017-02-03] VITALS: Ht 180.3 cm; Wt 100.0 kg
[~2017-02-03 17:25] MED LIST changes: +AMIO200T PO; +ESCI10TA52 PO; +FLUT1DIS5 INHALATION; -METO-272 PO; +METO-369 PO; +QUET25TA73 PO; +TIOT18CA3 INHALATION
[2017-02-03 18:00] VITALS: BP 113/78; PULSE 61; RESP 16; O2SAT 97
--- NOTE | 2017-02-03 19:22 | ED.REPORT ---
HPI-Psychiatric Illness Date of Service Feb 03, 2017 ED Provider: Luis Dougherty DO Pt is a 61 year old male with a history of A-fib, CHF, methamphetamine abuse, schizoaffective disorder, PTSD, bipolar disorder, and suicide attempts who presents to the ED complaining of worsening suicidal ideations onset 1 week ago. He reports that his fiance 10 years ago, resulting in intermittent suicidal ideations. He c/o associated depression. He denies chest pain and SOB. Per pt, he drank 8oz of Vodka today with his last drink 2 hours prior to arrival. The pt is currently visiting from [place], and he has been in [place] for 1 month. He reports that he has a history of attempted suicide by overdosing on Seroquel, and he has thoughts of not taking his medication for his heart conditions. Pt states that he wants to stop drinking alcohol. Nursing Notes Stated Complaint: CHF/AFIB SYMTOMS,MENTAL HEALTH EVAL Chief Complaint: Psychiatric Complaint Nursing Notes Reviewed: Yes Allergies: Coded Allergies: No Known Allergies (Verified , 06/15/16) Scheduled Amiodarone (Amiodarone) 200 Mg Tablet 200 MG PO DAILY Aspirin Chew (Aspirin Chew) 81 Mg Chew 325 MG PO DAILY Escitalopram Oxalate (Escitalopram Oxalate) 10 Mg Tablet 10 MG PO DAILY Fluticasone/Salmeterol (Advair 500-50 Diskus) 1 Each Disk.w.dev 1 PUFF INHALATION BID Metoprolol Succinate ER (Metoprolol Succinate ER) 50 Mg Tab.er.24h 100 MG PO BID Vit#96/Ferrous Fum/FA ( Tablet) 1 Each Tablet 1 TABLET PO DAILY Quetiapine Fumarate (Quetiapine Fumarate) 25 Mg Tablet 25 MG PO Q12 Tiotropium [place] (Spiriva) 18 Mcg Cap.w.dev 18 MCG INHALATION DAILY General Time Seen by MD: 19:22 Chief Complaint Suicidal ideation Hx Obtained From: Patient Arrived By: Walk-in Onset Occurred: 1 week ago Symptom Duration: Since onset Severity: Current: No pain currently Severity: Maximum: No pain Recent Healthcare: No recent doctor visit, No recent hospitalization Similar Sx Previous: Yes Risk-Psychiatric Illness Suicide Risk Stratification Suicide Risk Factors - Adult: : Alcohol use: Substance abuse RF Statements: Risk factors reviewed Past Medical History Past Medical History alcoholic meth abuse schizoaffective disorder bipolar PTSD Suicidal ideation with attempts Reports: Atrial fibrillation Past Surgical History Reports: Appendectomy, Tonsillectomy Smoking History Current Every Day Smoker Social History He reports injecting heroin (06/14/2016) Visiting from [facility] - 1 month (02/03/17) Alcohol Use: >5 per day Drug Use: Meth Other Social History: Poor social support, Local resident Ambulatory Status Independent Review of Systems Respiratory: Denies: Shortness of breath Cardiovascular: Denies: Chest pain Psychiatric: Reports: Depression, Suicidal ideation Complete sys rev & neg: except as marked. Physical Exam Initial Vital Signs Vital Signs (First) Date Time Temp Pulse Resp B/P Pulse Ox O2 Delivery O2 Flow Rate FiO2 02/03/17 18:00 36.8 61 16 113/78 97 Room Air Initial VS: Reviewed Head / Eyes: Atraumatic, Normocephalic Neck: Supple, Full range of motion Respiratory: Breath sounds normal, Clear to auscultation, No respiratory distress Abdomen / GI: Soft, Non-tender Extremities: Vascular intact, Neuro intact Skin: Warm, Dry, No cyanosis General/Constitutional: Awake, Alert Neurologic: CN II - XII intact Cardiovascular: Heart rate NL, Heart sounds NL Heart Rate / Rhythm: Positive: Irreg irregular rhythm Interpretation & Diagnostics Lab Results Interpretation Result Diagram: 02/03/17199902/03/171999 Test 02/03/17 20:00 02/03/17 20:01 White Blood Count 7.1th/mm3 (3.8-10.1) Red Blood Count 4.51mil/mm3 (4.40-5.80) Hemoglobin 14.9g/dL (13.8-17.2) Hematocrit 42.9% (41.0-50.0) Mean Corpuscular Volume 95.1fL (81-100) Mean Corpuscular Hemoglobin 33.0pg (27.0-35.0) Mean Corpuscular Hemoglobin Concent 34.7% (32.0-37.0) Red Cell Distribution Width 13.7% (12.3-15.4) Platelet Count 237bil/L (150-400) Neutrophils (%) (Auto) 36.5% (40-74) Lymphocytes (%) (Auto) 47.9% (14-46) Monocytes (%) (Auto) 8.6% (4-12) Eosinophils (%) (Auto) 6.5% (0-5) Basophils (%) (Auto) 0.4% (0-3) Sodium Level 137mEq/L (134-144) Potassium Level 4.2mEq/L (3.5-5.2) Chloride Level 97mEq/L (97-108) Carbon Dioxide Level 23mmol/L (18-29) Blood Urea Nitrogen 20mg/dL (8-27) Creatinine 1.03mg/dL (0.76-1.27) Estimat Glomerular Filtration Rate 78mL/min (>59) Glucose Level 92mg/dL (60-99) Calcium Level 9.2mg/dL (8.5-10.1) Total Bilirubin 0.6mg/dL (0.0-1.2) Aspartate Amino Transf (AST/SGOT) 41U/L (0-50) Alanine Aminotransferase (ALT/SGPT) 25U/L (0-44) Alkaline Phosphatase 70U/L (25-160) Total Protein 7.5g/dL (6.4-8.4) Albumin 4.2g/dL (3.4-5.0) Thyroid Stimulating Hormone (TSH) 1.290uIU/mL (0.450-4.500) Hold [place] Top Tube Received (Received) Hold Urine Received (Received) Re-Eval/Medical Decision Med Decision/Clinical Course Patient is presenting with vague suicidal ideations and alcohol intoxication. He wants to quit alcohol. He has multiple medications were prescribed by his doctor in [place], but he has refills on each medication and I informed him that he could stop by any pharmacy and they will refill them. [facility] been [facility] by [facility] and will proceed directly there from the ER at discharge. He is medically stable for [facility]. I discharged him with an Ativan taper to help him with withdrawal symptoms Source of Hx: Old records Re-Evaluation/Progress #1: Time of Eval: 22:43 Re-Evaluation/Progress Note: Pt rechecked. Informed pt of ability to refill his prescriptions at a pharmacy. All questions addressed. Re-Evaluation/Progress #2: Time of Eval: 02:07 Re-Evaluation/Progress Note: Pt rechecked. Informed pt of plan for discharge. Pt understands and agrees with plan for discharge. F/U instructions and RTER warnings given. All questions addressed. Consultation #1: Consulted With: lot worker Call Returned at: 21:12 Radiology Manager: Agrees with eval, Agrees with plan Note: Consulted with RAILROAD OPERATOR. Discussed pt's case. Consultation #2: Consulted With: lot worker Call Returned at: 21:50 Note: Consulted with RAILROAD OPERATOR. She states that there may be a bed available at [facility] for the pt's detox and suicidal ideations. Consultation #3: Consulted With: lot worker Call Returned at: 22:34 Note: Consulted with RAILROAD OPERATOR. Discussed pt's case. Consultation #4: Consulted With: lot worker Call Returned at: 23:42 Note: Consulted with RAILROAD OPERATOR. Discussed pt's case regarding bed at [facility]. Consultation #5: Call Returned at: 02:07 Note: [facility] will take the pt at 03:00. Counseled Regarding: Diagnosis, Lab results Discharge & Departure Impression: Primary Impression: Alcohol abuse Additional Impressions: Suicidal ideation Alcohol intoxication Complication of substance-induced condition: uncomplicated Qualified Code: F10.120 - Alcohol abuse with intoxication, uncomplicated Disposition: Home Discharge Condition All VS Reviewed: Yes Condition: Stable Patient Instructions: Suicide Prevention for Adults (ED) Additional Instructions: Thank you for trusting us with your care today. Proceed directly to [facility]. Continue your current medications. Take your medication bottles to the pharmacy and you have plenty of refills on the bottles. Use Ativan as needed for withdrawal symptoms Return to the Emergency Department for any new or concerning symptoms. Referrals: [facility] (PCP) [facility] Scribe Attestation Portions of this note were transcribed by Rosye Prajapati. I, Dr. Dougherty personally performed the history, physical exam and medical decision-making; I reviewed and confirmed the accuracy of the information in the transcribed note. Signed by: Janett Matute, 02/03/17. copies to: [facility] ; Theron De La Cruz DO Feb 03, 2017 19:22 Rosey Pop Feb 03, 2017 20:43
[2017-02-03 20:23] LABS: BASOPHILS % (AUTO) 0.4 % (0-3); EOSINOPHILS % (AUTO) 6.5 % (0-5); MONOCYTES % (AUTO) 8.6 % (4-12); Mean Corpuscular Volume 95.1 fL (81-100); NEUTROPHILS % (AUTO) 36.5 % (40-74); Platelet Count 237 bil/L (150-400)
[2017-02-04] MEDS ORDERED: _LORazepam 2 MG Tablet PO SCH (03:10)
[2017-02-04 03:31] VITALS: BP 135/84; PULSE 85; RESP 18; O2SAT 96
== END 2017-02-04 03:33 | disposition home or self-care (01) ==
LOC: SED 17:25
DX: F10.120 Alcohol abuse with intoxication, uncomplicated (principal); R45.851 Suicidal ideations; I50.9 Heart failure, unspecified; I48.91 Unspecified atrial fibrillation; F31.9 Bipolar disorder, unspecified; F32.9 Major depressive disorder, single episode, unspecified; F15.10 Other stimulant abuse, uncomplicated; F17.200 Nicotine dependence, unspecified, uncomplicated; Z91.5 Personal history of self-harm; Z90.89 Acquired absence of other organs; Z79.82 Long term (current) use of aspirin